=== PATIENT | female | born 1985 | race Caucasian/White ===

== ENCOUNTER → 2017-07-12 | Outpatient (CLI) | payer OTHER ==
[2017-07-12 14:02] LABS: BASO # 0.1 10^3/uL (0.0-0.2); BASO % 0.9 % (0.0-1.0); EOS # 0.4 10^3/uL (0.0-0.50); EOS % 2.6 % (0.0-3.0); IMMATURE GRANULOCYTE % 0.5 % (0-0); LYMPH # 2.6 10^3/uL (1.5-4.5); LYMPH % 19.2 % (24.0-44.0); MEAN CORPUSCULAR HEMOGLOBIN 31.3 pg (27.0-33.0); MEAN CORPUSCULAR HGB CONC 33.9 g/dl (32.0-36.5); MEAN CORPUSCULAR VOLUME 92.3 fl (80.0-96.0); MONO # 0.9 10^3/uL (0.0-0.8); MONO % 6.3 % (0.0-5.0); NEUTROPHILS # 9.7 10^3/uL (1.8-7.7); NEUTROPHILS % 70.5 % (36.0-66.0); PLATELET COUNT, AUTOMATED 404 10^3/uL (150-450); WHITE BLOOD COUNT 13.8 10^3/uL (4.0-10.0)
[2017-07-12 14:14] LABS: ALBUMIN 3.6 GM/DL (3.2-5.2); ALBUMIN/GLOBULIN RATIO 1.13 (1.00-1.93); ALKALINE PHOSPHATASE 85 U/L (45-117); ALT/SGPT 16 U/L (12-78); ANION GAP 7 MEQ/L (8-16); AST/SGOT 7 U/L (7-37); BILIRUBIN,TOTAL 0.2 MG/DL (0.2-1.0); BLOOD UREA NITROGEN 9 MG/DL (7-18); CARBON DIOXIDE LEVEL 24 MEQ/L (21-32); CHLORIDE LEVEL 107 MEQ/L (98-107); GLOMERULAR FILTRATION RATE > 60.0 (>60); GLUCOSE, FASTING 97 MG/DL (70-105); POTASSIUM SERUM 4.2 MEQ/L (3.5-5.1); SODIUM LEVEL 138 MEQ/L (136-145); TOTAL PROTEIN 6.8 GM/DL (6.4-8.2)
[2017-07-12 14:26] LABS: FOLATE 12.1 NG/ML; VITAMIN B12 LEVEL 726 PG/ML
[2017-07-14 07:06] LABS: ERYTHROCYTE SEDIMENTATION RATE 4 mm/hr (0-20)
== END ==
LOC: M LABNEURO 10:02
PROVIDERS: ATTEND Psychiatry & Neurology Neurology
DX: G35 Multiple sclerosis (principal)

== ENCOUNTER → 2019-03-06 | Outpatient (REF) | payer OTHER ==
[~2019-03-06] MED LIST: AMPY10TA PO; BACL1TAB8 GT; DOCU100C16 PO; DULO1CAP4 PO; DULO1CAP5 PO; FOLI1TAB11 PO; HYDR-3363 PO; LYRI150C PO; MECL1CHW PO; PROV100T25 PO; SYNT25TA PO; TIZA4CAP6 PO; TRAZ-252 PO; VITA30004 PO; YAZ1TAB PO; ZYRTTAB8 PO; [UNRECOGNIZED DRUG - CODE] SC
[2019-03-06 18:54] LABS: APPEARANCE, URINE HAZY (CLEAR); BACTERIA, URINE AUTO 1+ (NEGATIVE); BILIRUBIN, URINE AUTO NEGATIVE (NEGATIVE); BLOOD, URINE BLOOD NEGATIVE (NEGATIVE); COLOR, URINE YELLOW (YELLOW); GLUCOSE, URINE (UA) AUTO NEGATIVE (NEGATIVE); KETONE, URINE AUTO NEGATIVE (NEGATIVE); LEUKOCYTE ESTERASE, URINE AUTO TRACE (NEGATIVE); NITRITE, URINE AUTO NEGATIVE (NEGATIVE); PROTEIN, URINE AUTO NEGATIVE (NEGATIVE); RBC, URINE AUTO 2 /HPF (0-3); SPECIFIC GRAVITY URINE AUTO 1.005 (1.002-1.035); SQUAMOUS EPITHELIAL CELL UR AU 6 /HPF (0-6); UROBILINOGEN, URINE AUTO 0.2 mg/dL (0.0-2.0); WBC, URINE AUTO 4 /HPF (0-3)
== END ==
LOC: M SMT 17:16
PROVIDERS: ATTEND Nurse Practitioner Family
DX: N39.0 Urinary tract infection, site not specified (principal)
CPT/HCPCS: 51798; 81001; 87086; G0463

== ENCOUNTER → 2019-03-14 | Outpatient (CLI) | payer OTHER ==
--- NOTE | 2019-03-14 15:08 | REP ---
Renal ultrasound for chronic urinary tract infections: The right kidney measures 11.2 x 5.1 x 4.0 cm. The left kidney measures 12.1 x 6.5 x 5.6 cm. The kidneys are normal size. Renal cortical echogenicity is normal bilaterally. There is no hydronephrosis or calculus. There are no solid or cystic renal masses. Bladder: The bladder is incompletely distended and cannot be further evaluated. Impression: Negative renal ultrasound. The bladder is incompletely distended and cannot be evaluated Electronically Signed by Sammy Goldberg MD 03/14/2019 02:35 P
== END ==
LOC: M RAD 14:07
PROVIDERS: ATTEND Nurse Practitioner Family
DX: N39.0 Urinary tract infection, site not specified (principal)
CPT/HCPCS: 52281; 76775; 76857; G0463

== ENCOUNTER → 2019-07-03 | Outpatient (CLI) | payer OTHER ==
--- NOTE | 2019-07-11 02:46 | ECWPNPC ---
PATIENT NAME: DEBO GALLEGOS : 1985 GENDER: FEMALE VISIT DATE: 07/03/2019 DISCHARGE DATE: 07/03/19 0000 VISIT LOCKED DATE TIME: PHYSICIAN: BERNARD XIONG MD RESOURCE: BERNARD XIONG MD REASON FOR APPOINTMENT 1. BACK PAIN HISTORY OF PRESENT ILLNESS PAIN SCREENING: PATIENT HAS A COMPLAINT OF ACUTE OR CHRONIC PAIN :YES 33 YEAR OLD FEMALE PATIENT WITH A HISTORY OF CHRONIC LOW BACK PAIN. THE PATIENT DESCRIBES THE PAIN ACHING, SORE, SHOOTING, INTERMITTENT, AND CONTINUOUS WITH A PAIN SCORE OF 5-10/10 DEPENDING ON PHYSICAL ACTIVITY. THE PATIENT STATES HER PAIN IS MAINLY LOCATED OVER HER TAILBONE WITH IT WORSE ON THE LEFT SIDE AND LEFT HIP AREAS. THE PATIENT SAYS SHE HAS BEEN SUFFERING FROM HER LOW BACK PAIN OVER THE LAST 5 YEARS, WHICH HAS WORSENED OVER TIME. THE PATIENT SAYS SHE HAS RECEIVED LEFT HIP INJECTIONS IN THE PAST THAT HELPED PROVIDE GOOD PAIN RELIEF FOR HER. THE PATIENT MENTIONS SHE HAS A HISTORY OF MS SINCE 2017 THAT HAS SLOWLY PROGRESSED OVER THE YEARS. PATIENT DENIES UNEXPLAINABLE WEIGHT LOSS, FEVER, CHILLS, NEW CHANGES ON HER URINARY OR BOWEL CONTROL. FALL RISK SCREENING: SCREENING :NO FALLS REPORTED IN THE LAST YEAR CURRENT MEDICATIONS TAKING FLUCONAZOLE 150 MG TABLET DIRECTED ORALLY TAKING PHENAZOPYRIDINE HCL 100 MG TABLET 2 TABLETS AFTER MEALS ORALLY THREE TIMES A DAY TAKING ZYRTEC , NOTES: 100MG TAKING DULOXETINE HCL 60 MG CAPSULE DELAYED RELEASE PARTICLES 1 CAPSULE ORALLY ONCE A DAY, NOTES: 70MG TAKING PROVIGIL 100 MG TABLET 1 TABLET IN THE MORNING ORALLY ONCE A DAY TAKING LYRICA 150 MG CAPSULE 1 CAPSULE ORALLY ONCE A DAY, NOTES: 2XS A DAY TAKING SYNTHROID 25 MCG TABLET 1 TABLET ON AN EMPTY STOMACH IN THE MORNING ORALLY ONCE A DAY TAKING FOLIC ACID 1 MG TABLET 1 TABLET ORALLY ONCE A DAY TAKING VITAMIN D 1000 UNIT TABLET 1 TABLET ORALLY ONCE A DAY, NOTES: 5000 TAKING TRAZODONE HCL 50 MG TABLET 1 TABLET AT BEDTIME NEEDED ORALLY ONCE A DAY TAKING COPAXONE 20 MG/ML SOLUTION PREFILLED SYRINGE 1 ML SUBCUTANEOUS ONCE A DAY TAKING DALFAMPRIDINE ER 10 MG TABLET EXTENDED RELEASE 12 HOUR 1 TABLET ORALLY TWICE A DAY TAKING MECLIZINE HCL 25 MG TABLET CHEWABLE 1 TABLET NEEDED ORALLY ONCE A DAY TAKING BACLOFEN 10 MG/20ML SOLUTION DIRECTED INTRATHECAL TAKING TIZANIDINE HCL 4 MG TABLET 1 TABLET NEEDED ORALLY THREE TIMES A DAY TAKING HYDROXYZINE HCL 25 MG/ML SOLUTION 2 ML NEEDED INTRAMUSCULAR EVERY 6 HRS TAKING DOCUSATE SODIUM 100 MG CAPSULE 1 CAPSULE NEEDED ORALLY ONCE A DAY TAKING METHENAMINE HIPPURATE 1 GM TABLET 1 TABLET ORALLY TWICE A DAY NOT-TAKING NITROFURANTOIN MONOHYD MACRO 100 MG CAPSULE 1 CAPSULE WITH FOOD ORALLY EVERY 12 HRS NOT-TAKING BACTRIM DS 800-160 MG TABLET 1 TABLET 1 HOUR PRIOR TO YOUR CYSTOSCOPY ORALLY ONCE NOT-TAKING DIFLUCAN 100 MG TABLET 1 TABLET 1 HOUR PRIOR TO YOUR CYSTOSCOPY ORALLY ONCE MEDICATION LIST REVIEWED AND RECONCILED WITH THE PATIENT PAST MEDICAL HISTORY UTI MS HYPOTHYROIDISM BELLS PALSY ALLERGIES MORPHINE SULFATE (PF): HIVES SURGICAL HISTORY TONSILLECTOMY IUD CYSTOSCOPY 03/14/2019 FAMILY HISTORY FATHER: ALIVE MOTHER: ALIVE 1 BROTHER(S) , 2 SISTER(S) . 1 SON(S) , 1 DAUGHTER(S) - HEALTHY. 1 SISTER HAS CHRONS DISEASE. SOCIAL HISTORY GENERAL: TOBACCO USE ARE YOU A:CURRENT SMOKER ARE YOU INTERESTED IN QUITTING?NOT READY TO QUIT COUNSELED THE PATIENT ON SMOKING EFFECTS, EDUCATION [id number]/24/2019 HOW MANY CIGARETTES A DAY DO YOU SMOKE?6-10 HOW SOON AFTER YOU WAKE UP DO YOU SMOKE YOUR FIRST CIGARETTE?6-30 MIN HOW OFTEN DO YOU SMOKE CIGARETTES?EVERY DAY PATIENT COUNSELED ON THE DANGERS OF TOBACCO USE AND URGED TO QUIT:07/03/2019 OTHERS AT HOME: SPOUSE. HOUSING: OWNS HOME. EDUCATION LEVEL OF EDUCATION:HIGH SCHOOL DIET: REGULAR. LANGUAGE LANGUAGES SPOKEN:VENEZUELAN DOMESTIC VIOLENCE STATUS: NEW PATIENT PAIN DIARY PATIENT DESCRIBES PAIN :ACHING, STABBING, SORE FROM 0-10, WHAT LEVEL IS YOUR PAIN TODAY?7 PRECIPITATING FACTORS GENERALIZED ACTIVITY ALLEVIATING FACTORS HEAT SEEMS TO HELP A LITTLE BIT ACCUPUNCTURE PT PAIN INJECTIONS IN LEFT HIPX2 STATES PAIN RETURNS IMPACT ON FUNCTION STATES SHE DOES WORK BUT IT IS VERY PANFUL, STATES WORKING WOULD BE EASIER IF SHE WAS NOT IN PAIN IS THERE A CHANCE YOU COULD BE ?NO HAVE YOU BEEN SICK IN THE LAST WEEK (COLD, COUGH, FEVER, FLU, ETC)NO DO YOU TAKE ANY BLOOD THINNERS?NO DO YOU HAVE ANY RASHES OR OPEN SORES?NO ANY CHANGE IN BOWEL OR BLADDER CONTROL?NO ARE YOU ALLERGIC TO SHELLFISH OR IV DYE?NO ARE YOU DIABETIC?NO DO YOU HAVE A PACEMAKER OR DEFIBRILLATOR?NO HAVE YOU FALLEN IN THE LAST 6 MONTHS?NO DO YOU USE ANY TYPE OF TOBACCO (SMOKE, SMOKELESS, CHEW, ETC.)YES ARE YOU ABUSED, NEGLECTED, OR IN AN UNSAFE ENVIRONMENT?NO DO YOU HAVE THOUGHTS OF HURTING YOURSELF OR SOMEONE ELSE?NO DO YOU NEED ANY PRESCRIPTIONS? UNKNOWN DO YOU HAVE ANY OTHER QUESTIONS OR CONCERNS? OPTIONS FOR PAIN CONTROL INTENSITY SCALE REVIEWEDNUMBER RECREATIONAL DRUG USE DRUG USE?NO EXERCISE: NO REGULAR EXERCISE. LEARNING BARRIERS / SPECIAL NEEDS VISION IMPAIRED?YES CONTACTS PAIN CLINIC PFS, CLERGY, PUBLIC HEALTH REFERRALS PFS REFERRAL NEEDED?NO CLERGY REFERRAL NEEDED?NO PUBLIC HEALTH REFERRAL NEEDED?NO WAS THE PROVIDER NOTIFIED OF ANY PERTINENT INFO?YES HAS THE PATIENT BEEN EDUCATED REGARDING HIS/HER PLAN OF CARE?YES HAS THE PATIENT BEEN EDUCATED REGARDING PAIN, THE RISK FOR PAIN, THE IMPORTANCE OF EFFECTIVE PAIN MANAGEMENT, AND THE PAIN ASSESSMENT PROCESS?YES LATEX QUESTIONNAIRE LATEX ALLERGY : HAVE YOU EVER DEVELOPED ANY TYPE OF REACTION AFTER HANDLING LATEX PRODUCTS SUCH RUBBER GLOVES, CONDOMS, DIAPHRAGMS, BALLOONS, SOCKS, OR UNDERWEAR?NO LATEX ALLERGY : HAVE YOU EVER DEVELOPED ANY TYPE OF REACTION DURING OR AFTER DENTAL APPOINTMENT, VAGINAL/RECTAL EXAMINATION, SURGICAL PROCEDURE, OR ANY OTHER EXPOSURE?NO LATEX RISK : HAVE YOU EVER HAD ANY DIFFICULTY BREATHING OR HIVES AFTER EATING OR HANDLING ANY FRUITS, OR VEGETABLES; SUCH KIWI, BANANAS, STONE FRUITS, OR CHESTNUTSNO LATEX RISK : DO YOU HAVE A PREVIOUS PERSONAL HISTORY OF MORE THAN NINE SURGERIES, SPINA BIFIDA, OR REPEATED CATHERIZATIONS? NO LATEX RISK : ARE YOU FREQUENTLY EXPOSED TO LATEX PRODUCTS IN YOUR OCCUPATION?NO DATE ASKED : 07/03/2019 CAFFEINE CAFFEINE USE?YES SODA,TEA, SOMETIMES COFFEE ADVANCE DIRECTIVE ADVANCE DIRECTIVE DISCUSSED WITH PATIENT:NO PT STATES SHE HAS NO ADVANCED DIRECTIVES, DECLINES INFORMATION AT THIS TIME 07/03/19 4688 [facility] YAZDANISM YAZDANISM NO BAHAI BELIEFS THAT WOULD IMPACT HEALTH CARE. MARITAL STATUS: . ALCOHOL SCREENING DID YOU HAVE A DRINK CONTAINING ALCOHOL IN THE PAST YEAR?YES HOW OFTEN DID YOU HAVE A DRINK CONTAINING ALCOHOL IN THE PAST YEAR?MONTHLY OR LESS (1 POINT) HOW MANY DRINKS DID YOU HAVE ON A TYPICAL DAY WHEN YOU WERE DRINKING IN THE PAST YEAR?1 OR 2 (0 POINTS) HOW OFTEN DID YOU HAVE SIX OR MORE DRINKS ON ONE OCCASION IN THE PAST YEAR?NEVER (0 POINTS) POINTS1 INTERPRETATIONNEGATIVE OCCUPATION: RETAIL. SEXUAL HX HAD SEX IN THE LAST 12 MONTHS (VAGINAL, ORAL, OR ANAL)?YES WITHMEN ONLY PREVENTION STRATEGIES DISCUSSED:OTHER USE PROTECTION?NO HAVE YOU EVER HAD AN STD?NO HOSPITALIZATION/MAJOR DIAGNOSTIC PROCEDURE DENIES PAST HOSPITALIZATION REVIEW OF SYSTEMS REVIEWED BY: PROVIDER: BERNARD XIONG MD . CONSTITUTIONAL: ANY CHANGE IN YOUR MEDICAL CONDITION? NO . CHILLS NO . FEVER NO . INFECTION: DO YOU HAVE NEW INFECTIONS? NO . DO YOU HAVE HISTORY OF MRSA? NO . MUSCULOSKELETAL: ANY NEW PATTERNS OF PAIN OR NUMBNESS? NO . SYTEMIC LUPUS NO . GASTROENTEROLOGY: ANY NEW CHANGE IN BOWEL CONTROL? NO . BARRETTS ESOPHAGUS NO . CIRRHOSIS NO . HEPATITIS NO . LIVER FAILURE NO . ACID REFLUX NO . UNEXPLAINED WEIGHT LOSS NO . GENITOURINARY: ANY NEW CHANGE IN BLADDER CONTROL? NO . IS THERE A CHANCE YOU COULD BE ? NO . HEMATOLOGY/LYMPH: DO YOU TAKE ANY BLOOD THINNERS? (FOR EXAMPLE- COUMADIN, PLAVIX, AGGRENOX, PLATEL, PRADAXA, OR XARELTO) NO . WHEN WAS YOUR LAST DOSE? DATE: TIME: . LOW PLATELET COUNT NO . SICKLE CELL DISEASE NO . VON WILLIEBRANDS NO . FACTOR V LEIDEN NO . THALLASEMIA NO . ANEMIA YES . EASY BRUISING NO . NEUROLOGY: HAVE YOU FALLEN IN THE PAST 12 MONTHS? NO . ANY NEW EXTREMITY NUMBNESS OR WEAKNESS? YES- STATES ARMS AND LEGS RELATED TO MS . HEAD INJURY NO . DEMENTIA NO . CEREBRAL PALSY NO . MULTIPLE SCLEROSIS YES . DIZZINESS NO . HEADACHE NO . STROKES NO . VERTIGO NO . CARDIOLOGY: DO YOU HAVE A PACEMAKER OR DEFIBRILLATOR? NO . ANGINA NO . HEART ATTACK NO . HEART SURGERY NO . CONGESTIVE HEART FAILURE/FLUID OVERLOAD NO . CHEST PAIN NO . HIGH BLOOD PRESSURE NO . IRREGULAR HEART BEAT NO . RESPIRATORY: HAVE YOU BEEN SICK IN THE PAST WEEK? NO . FEVER NO . FLU LIKE SYMPTOMS? NO . CPAP NO . BYPAP NO . ASTHMA NO . EMPHYSEMA NO . CHRONIC LUNG DISEASES NO . SHORTNESS OF BREATH ON EXERTION NO . COUGH NO . SNORING NO . INTEGUMENTARY: DO YOU HAVE ANY RASHES OR OPEN SORES? NO . ALLERGIC/IMMUNO: ARE YOU ALLERGIC TO IV DYE? NO . ANY NEW ALLERGIES? NO . PSYCHIATRIC: DO YOU HAVE THOUGHTS OF HURTING YOURSELF OR SOMEONE ELSE? NO . ARE YOU ABUSED, NEGLECTED, OR IN AN UNSAFE ENVIRONMENT? NO . ENDOCRINOLOGY: ARE YOU DIABETIC? NO . THYROID DISORDER NO . OTHER: DO YOU NEED ANY PRESCRIPTIONS? NO . IF YES, PLEASE LIST: ____ . ANY NEW PROBLEMS WITH YOUR MEDICATIONS? NO . WHEN DID YOU LAST EAT? ____ . WHEN DID YOU LAST DRINK? ____ . WHAT DID YOU LAST DRINK? ____ . NAME OF PERSON DRIVING YOU HOME? ____ . DO YOU HAVE ANY OTHER QUESTIONS OR CONCERNS NO . VITAL SIGNS WT 205.4 LBS, HT 70 IN, BMI 29.47 INDEX, BP 137/94 MM HG, HR 93 /MIN, RR 18 /MIN, TEMP 97.4 F, OXYGEN SAT % 99%, SAFE IN ENV? (Y/N) YES, NA INITIALS SC 15:40, REVIEWED BY: JAYLYN. EXAMINATION GENERAL EXAMINATION: PATIENT IS ALERT O X 3 AND COOPERATIVE. LUNGS CLEAR, TO AUSCULTATION. HEART: NO MURMURS OR GALLOPS; FACIAL CRANIAL NERVES ARE GROSSLY NORMAL. GOOD SYMMETRY OF FACIAL MUSCLE MOVEMENT. NORMAL VISUAL CHAPPELL. ANTALGIC WALK. TENDERNESS IN THE LOW BACK OVER THE LEFT SACROILIAC JOINT AND LEFT GREATER TROCHANTER OF THE FEMUR. LEFT LEG IS WEAKER AT EXTENSION AND FLEXION. STRAIGHT LEG RAISE OF EITHER LEG IS NEGATIVE FOR RADICULOPATHY. MRI OF THE LUMBAR SPINE DONE ON 07/26/2018 SHOWS BULGING DISC AT L4-L5 AND FACET ARTHROPATHY CHANGES. 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 GALLEGOS'S PAIN MANAGEMENT CASE. DUE TO THE SACROILIAC JOINT DYSFUNCTION, I WOULD LIKE TO MOVE FORWARD WITH A LEFT SACROILIAC JOINT BLOCK AT THIS TIME. WE DISCUSSED THE BENEFITS, RISKS, AND ALTERNATIVES OF THE INJECTION AND THE PATIENT WOULD LIKE TO PROCEED. THE PATIENT WILL FOLLOW UP IN SEVERAL WEEKS AFTER THE PROCEDURE TO SEE HOW IT IS HELPING WITH HER PAIN. DEPENDING ON THE INJECTION'S RESULTS, I MAY TRY AN INJECTION OVER THE LEFT GREATER TROCHANTER OF THE FEMUR. THE PATIENT WILL FOLLOW UP IN SEVERAL WEEKS WITH THE NURSE PRACTITIONER AFTER HER PROCEDURE TO SEE HOW IT IS HELPING WITH HER PAIN. INSTRUCTIONS WERE GIVEN, QUESTIONS WERE ANSWERED, PATIENT REPORTS UNDERSTANDING AND AGREES WITH THE PLAN. I, PALMIRA GILBERT, DOCUMENTED THE ABOVE INFORMATION ACTING A SCRIBE FOR DR. XIONG. I HAVE REVIEWED THE ABOVE DOCUMENT, WRITTEN BY PALMIRA SPANNIBRay AND I VERIFY THAT IT IS ACCURATE. DEAR ЕЛЕНА LUNA MD: THANK YOU FOR YOUR KIND REFERRAL OF DEBO GALLEGOS. IF YOU WANT TO DISCUSS HER CASE WITH ME PLEASE CALL ME AT THE PAIN CENTER AT [phone]. SINCERELY, BERNARD XIONG MD PAIN MEDICINE . PROCEDURE CODES FA211 ESTABILISHED PATIENT [facility] CHARGE [id number] CURRENT MEDS W/DOSAGES DOCUMENTED G8730 PAIN ASSESS POS TOOL F/U PLAN DOC DISPOSITION & COMMUNICATION FOLLOW UP REASON: LT SIJ BLOCK, F/UP WITH GEOMETRICIAN ELECTRONICALLY SIGNED BY BERNARD XIONG MD, MD ON 07/10/2019 AT 04:02 PM EST DISCLAIMER : THIS IS A VISIT SUMMARY EXTRACTED FROM THE [employer] CHART. IT IS NOT A COPY OF THE [employer] PROGRESS NOTE. YANCI
== END ==
LOC: M PAIN 15:00
PROVIDERS: ATTEND Anesthesiology
DX: M54.5 Low back pain (principal); G89.29 Other chronic pain; M46.1 Sacroiliitis, not elsewhere classified; M53.3 Sacrococcygeal disorders, not elsewhere classified; M70.62 Trochanteric bursitis, left hip; G35 Multiple sclerosis; E03.9 Hypothyroidism, unspecified; F17.210 Nicotine dependence, cigarettes, uncomplicated; Z88.5 Allergy status to narcotic agent; Z79.899 Other long term (current) drug therapy

== ENCOUNTER → 2019-07-30 | Outpatient (CLI) | payer OTHER ==
[~2019-07-30] MED LIST changes: +BUPIVACAINE HCL 0.25% 30 ML VIAL As Ordered ONE; +ISOVUE-M 300 61% 15ML VIAL (Q9967) As Ordered ONE; +LIDOCAINE 1% SDV INJ 30 ML VIAL As Ordered ONE; +NORCO, ANEXSIA 5/325MG TABLET (HYDROcodone/ACETAMINOPHEN) As Ordered ONE; +TRIAMCINOLONE ACETONIDE SUSP 40 MG/ML VIAL (J3301) As Ordered ONE; +diazePAM 5 MG TAB As Ordered ONE; +diphenhydrAMINE 25 MG CAP As Ordered ONE
--- NOTE | 2019-07-30 16:40 | REP ---
Three spot fluoroscopic images: 07/30/2019. Indication: Procedural image guidance. Findings: Spot fluoroscopic images of the sacroiliac joint were provided for procedural assistance. Please see procedure report for details. Impression: Imaging provided for procedural assistance. 20 seconds of fluoroscopy time. Electronically Signed by Nacho Parra DO 07/30/2019 04:33 P
--- NOTE | 2019-08-01 01:37 | ECWPNPC ---
PATIENT NAME: DEBO GALLEGOS : 1985 GENDER: FEMALE VISIT DATE: 07/30/2019 DISCHARGE DATE: 07/30/19 1707 VISIT LOCKED DATE TIME: PHYSICIAN: BERNARD XIONG MD RESOURCE: BERNARD XIONG MD REASON FOR APPOINTMENT 1. LEFT SIJ HISTORY OF PRESENT ILLNESS HISTORY OF PRESENT ILLNESS: PAIN THE PATIENT DESCRIBES THE PAIN... FALL RISK SCREENING: SCREENING :NO FALLS REPORTED IN THE LAST YEAR CURRENT MEDICATIONS TAKING ZYRTEC 10 MG TABLET 1 CAP ORALLY DAILY, NOTES: 100MG 07/30 700 TAKING DULOXETINE HCL 60 MG CAPSULE DELAYED RELEASE PARTICLES 1 CAPSULE ORALLY ONCE A DAY, NOTES: 70MG 07/30 700 TAKING PROVIGIL 100 MG TABLET 1 TABLET IN THE MORNING ORALLY ONCE A DAY, NOTES: 07/30 700 TAKING LYRICA 150 MG CAPSULE 1 CAPSULE ORALLY ONCE A DAY, NOTES: 2XS A DAY 07/30 700 TAKING SYNTHROID 25 MCG TABLET 1 TABLET ON AN EMPTY STOMACH IN THE MORNING ORALLY ONCE A DAY, NOTES: 07/30 700 TAKING FOLIC ACID 1 MG TABLET 1 TABLET ORALLY ONCE A DAY, NOTES: 07/30 700 TAKING VITAMIN D 1000 UNIT TABLET 1 TABLET ORALLY ONCE A DAY, NOTES: 5000 07/30 700 TAKING TRAZODONE HCL 50 MG TABLET 1 TABLET AT BEDTIME NEEDED ORALLY ONCE A DAY, NOTES: 07/29 2100 TAKING COPAXONE 20 MG/ML SOLUTION PREFILLED SYRINGE 1 ML SUBCUTANEOUS ONCE A DAY, NOTES: 07/28 TAKING DALFAMPRIDINE ER 10 MG TABLET EXTENDED RELEASE 12 HOUR 1 TABLET ORALLY TWICE A DAY, NOTES: 07/28 TAKING MECLIZINE HCL 25 MG TABLET CHEWABLE 1 TABLET NEEDED ORALLY ONCE A DAY, NOTES: 2 WEEKS AGO TAKING BACLOFEN 10 MG/20ML SOLUTION DIRECTED INTRATHECAL , NOTES: NONE RECENT TAKING TIZANIDINE HCL 4 MG TABLET 1 TABLET NEEDED ORALLY THREE TIMES A DAY, NOTES: 2 WEEKS AGO TAKING HYDROXYZINE HCL 25 MG TABLET 1 TAB ORALLY EVERY 6 HRS NEEDED, NOTES: NONE RECENT TAKING DOCUSATE SODIUM 100 MG CAPSULE 1 CAPSULE NEEDED ORALLY ONCE A DAY, NOTES: NONE RECENT TAKING METHENAMINE HIPPURATE 1 GM TABLET 1 TABLET ORALLY TWICE A DAY, NOTES: 07/30 700 NOT-TAKING NITROFURANTOIN MONOHYD MACRO 100 MG CAPSULE 1 CAPSULE WITH FOOD ORALLY EVERY 12 HRS NOT-TAKING BACTRIM DS 800-160 MG TABLET 1 TABLET 1 HOUR PRIOR TO YOUR CYSTOSCOPY ORALLY ONCE NOT-TAKING DIFLUCAN 100 MG TABLET 1 TABLET 1 HOUR PRIOR TO YOUR CYSTOSCOPY ORALLY ONCE NOT-TAKING FLUCONAZOLE 150 MG TABLET DIRECTED ORALLY NOT-TAKING PHENAZOPYRIDINE HCL 100 MG TABLET 2 TABLETS AFTER MEALS ORALLY THREE TIMES A DAY MEDICATION LIST REVIEWED AND RECONCILED WITH THE PATIENT PAST MEDICAL HISTORY UTI MS HYPOTHYROIDISM BELLS PALSY CHRONIC BACK PAIN ALLERGIES MORPHINE SULFATE (PF): HIVES SURGICAL HISTORY TONSILLECTOMY IUD CYSTOSCOPY 03/14/2019 FAMILY HISTORY FATHER: ALIVE MOTHER: ALIVE 1 BROTHER(S) , 2 SISTER(S) . 1 SON(S) , 1 DAUGHTER(S) - HEALTHY. 1 SISTER HAS CHRONS DISEASE. SOCIAL HISTORY GENERAL: TOBACCO USE ARE YOU A:CURRENT SMOKER ARE YOU INTERESTED IN QUITTING?NOT READY TO QUIT COUNSELED THE PATIENT ON SMOKING EFFECTS, EDUCATION [id number]/17/2019 HOW MANY CIGARETTES A DAY DO YOU SMOKE?6-10 HOW SOON AFTER YOU WAKE UP DO YOU SMOKE YOUR FIRST CIGARETTE?6-30 MIN HOW OFTEN DO YOU SMOKE CIGARETTES?EVERY DAY PATIENT COUNSELED ON THE DANGERS OF TOBACCO USE AND URGED TO QUIT:07/30/2019 OTHERS AT HOME: SPOUSE. HOUSING: OWNS HOME. EDUCATION LEVEL OF EDUCATION:HIGH SCHOOL DIET: REGULAR. LANGUAGE LANGUAGES SPOKEN:SENEGALESE DOMESTIC VIOLENCE STATUS: DO YOU FEEL SAFE IN YOUR ENVIRONMENT?YES RECREATIONAL DRUG USE DRUG USE?NO EXERCISE: NO REGULAR EXERCISE. LEARNING BARRIERS / SPECIAL NEEDS VISION IMPAIRED?YES CONTACTS PAIN CLINIC PFS, CLERGY, PUBLIC HEALTH REFERRALS PFS REFERRAL NEEDED?NO CLERGY REFERRAL NEEDED?NO PUBLIC HEALTH REFERRAL NEEDED?NO HAS THE PATIENT BEEN EDUCATED REGARDING HIS/HER PLAN OF CARE?YES HAS THE PATIENT BEEN EDUCATED REGARDING PAIN, THE RISK FOR PAIN, THE IMPORTANCE OF EFFECTIVE PAIN MANAGEMENT, AND THE PAIN ASSESSMENT PROCESS?YES LATEX QUESTIONNAIRE LATEX ALLERGY : HAVE YOU EVER DEVELOPED ANY TYPE OF REACTION AFTER HANDLING LATEX PRODUCTS SUCH RUBBER GLOVES, CONDOMS, DIAPHRAGMS, BALLOONS, SOCKS, OR UNDERWEAR?NO LATEX ALLERGY : HAVE YOU EVER DEVELOPED ANY TYPE OF REACTION DURING OR AFTER DENTAL APPOINTMENT, VAGINAL/RECTAL EXAMINATION, SURGICAL PROCEDURE, OR ANY OTHER EXPOSURE?NO LATEX RISK : HAVE YOU EVER HAD ANY DIFFICULTY BREATHING OR HIVES AFTER EATING OR HANDLING ANY FRUITS, OR VEGETABLES; SUCH KIWI, BANANAS, STONE FRUITS, OR CHESTNUTSNO LATEX RISK : DO YOU HAVE A PREVIOUS PERSONAL HISTORY OF MORE THAN NINE SURGERIES, SPINA BIFIDA, OR REPEATED CATHERIZATIONS? NO LATEX RISK : ARE YOU FREQUENTLY EXPOSED TO LATEX PRODUCTS IN YOUR OCCUPATION?NO DATE ASKED : 07/30/2019 CAFFEINE CAFFEINE USE?YES SODA,TEA, SOMETIMES COFFEE ADVANCE DIRECTIVE ADVANCE DIRECTIVE DISCUSSED WITH PATIENT:YES 07/30/19 PT DOES NOT HAVE ANY ADVANCED DIRECTIVES AND SHE DECLINES INFORMATION ON HCP AT THIS TIME. AD TAOIST TAOIST NO ORTHODOXY BELIEFS THAT WOULD IMPACT HEALTH CARE. MARITAL STATUS: . ALCOHOL SCREENING DID YOU HAVE A DRINK CONTAINING ALCOHOL IN THE PAST YEAR?YES HOW OFTEN DID YOU HAVE SIX OR MORE DRINKS ON ONE OCCASION IN THE PAST YEAR?NEVER (0 POINTS) HOW MANY DRINKS DID YOU HAVE ON A TYPICAL DAY WHEN YOU WERE DRINKING IN THE PAST YEAR?1 OR 2 (0 POINTS) HOW OFTEN DID YOU HAVE A DRINK CONTAINING ALCOHOL IN THE PAST YEAR?MONTHLY OR LESS (1 POINT) POINTS1 INTERPRETATIONNEGATIVE OCCUPATION: RETAIL. SEXUAL HX HAD SEX IN THE LAST 12 MONTHS (VAGINAL, ORAL, OR ANAL)?YES WITHMEN ONLY PREVENTION STRATEGIES DISCUSSED:OTHER USE PROTECTION?NO HAVE YOU EVER HAD AN STD?NO PRE PROCEDURE PHONE CALL COMPLETE 07/22/19 1010 BV07/30/19 1440 REVIEWED WITH PT. AD. HOSPITALIZATION/MAJOR DIAGNOSTIC PROCEDURE NO HOSPITALIZATION HISTORY. REVIEW OF SYSTEMS REVIEWED BY: PROVIDER: . CONSTITUTIONAL: ANY CHANGE IN YOUR MEDICAL CONDITION? NO . CHILLS NO . FEVER NO . INFECTION: DO YOU HAVE NEW INFECTIONS? NO . DO YOU HAVE HISTORY OF MRSA? NO . MUSCULOSKELETAL: ANY NEW PATTERNS OF PAIN OR NUMBNESS? NO . GASTROENTEROLOGY: ANY NEW CHANGE IN BOWEL CONTROL? NO . GENITOURINARY: ANY NEW CHANGE IN BLADDER CONTROL? NO . IS THERE A CHANCE YOU COULD BE ? NO . HEMATOLOGY/LYMPH: DO YOU TAKE ANY BLOOD THINNERS? (FOR EXAMPLE- COUMADIN, PLAVIX, AGGRENOX, PLATEL, PRADAXA, OR XARELTO) NO . WHEN WAS YOUR LAST DOSE? DATE: TIME: . NEUROLOGY: HAVE YOU FALLEN IN THE PAST 12 MONTHS? NO . ANY NEW EXTREMITY NUMBNESS OR WEAKNESS? NO . CARDIOLOGY: DO YOU HAVE A PACEMAKER OR DEFIBRILLATOR? NO . RESPIRATORY: HAVE YOU BEEN SICK IN THE PAST WEEK? NO . FEVER NO . FLU LIKE SYMPTOMS? NO . COUGH NO . INTEGUMENTARY: DO YOU HAVE ANY RASHES OR OPEN SORES? NO . ALLERGIC/IMMUNO: ARE YOU ALLERGIC TO IV DYE? NO . ANY NEW ALLERGIES? NO . PSYCHIATRIC: DO YOU HAVE THOUGHTS OF HURTING YOURSELF OR SOMEONE ELSE? NO . ARE YOU ABUSED, NEGLECTED, OR IN AN UNSAFE ENVIRONMENT? NO . ENDOCRINOLOGY: ARE YOU DIABETIC? NO . OTHER: DO YOU NEED ANY PRESCRIPTIONS? NO . IF YES, PLEASE LIST: ____ . ANY NEW PROBLEMS WITH YOUR MEDICATIONS? NO . WHEN DID YOU LAST EAT? 07/30 0900 . WHEN DID YOU LAST DRINK? 07/30 1400 . WHAT DID YOU LAST DRINK? WATER . NAME OF PERSON DRIVING YOU HOME? HUSBAN-SOL . DO YOU HAVE ANY OTHER QUESTIONS OR CONCERNS NO PT HAS NOT HAD ANY VACCINES IN THE PAST 30 DAYS. . VITAL SIGNS WT 200.0 LBS, HT 70 IN, BMI 28.69 INDEX, BP 126/85 MM HG, HR 88 /MIN, RR 18 /MIN, TEMP 97.1 F, OXYGEN SAT % 99%, SAFE IN ENV? (Y/N) Y, NA INITIALS AW 1426, REVIEWED BY: AD. ASSESSMENTS SACROILIITIS, NOT ELSEWHERE CLASSIFIED - M46.1 (PRIMARY) TREATMENT SACROILIITIS, NOT ELSEWHERE CLASSIFIED [facility] FLUORO GUIDANCE (PAIN)[id number] PROCEDURES PN SI PRE PROCEDURE DIAGNOSIS SACROILIITIS, SACROILIAC JOINT DYSFUNCTION POST PROCEDURE DIAGNOSIS SACROILIITIS, SACROILIAC JOINT DYSFUNCTION PROCEDURE LEFT SACROILIAC JOINT BLOCK SURGEON DR. BERNARD XIONG VEHICLE ASSEMBLY INSPECTOR NONE ANESTHESIA LOCAL PRE PROCEDURE NOTE PATIENT WITH HISTORY OF CHRONIC LOW BACK PAIN. I EVALUATED THE PATIENT AND REVIEWED THE CHART. I WENT OVER THE RISKS, ALTERNATIVES, AND BENEFITS ASSOCIATED WITH THIS PROCEDURE. THE PATIENT WOULD LIKE TO PROCEED AND GAVE CONSENT TO PERFORM THE PROCEDURE. THE PATIENT DENIES UNEXPLAINABLE WEIGHT LOSS, FEVER, CHILLS, OR NEW CHANGES IN URINARY OR BOWEL CONTROL DESCRIPTION OF PROCEDURE THE PATIENT WAS BROUGHT TO THE PROCEDURE ROOM AND PLACED IN THE PRONE POSITION. THE LUMBOSACRAL AREA WAS CLEANED WITH CHLORAPREP SOLUTION AND DRAPED ASEPTICALLY. THE PROCEDURE WAS DONE UNDER STERILE CONDITIONS. I CHECKED LATERALITY AND THE LEVEL WHERE THE PROCEDURE WAS GOING TO BE PERFORMED WITH THE PATIENT AND THE SUPPORTING STAFF AT THE MOMENT OF THE TIME OUT IN THE PROCEDURE ROOM. UNDER FLUOROSCOPIC GUIDANCE, TARGET POINT WAS SELECTED AT THE LOWER BORDER OF THE LEFT SACROILIAC JOINT. TARGET POINT WAS SELECTED AFTER MEDIAL ROTATION AND TILT OF THE MAGNIFIER OF THE C-ARM. LIDOCAINE WAS USED TO NUMB THE SKIN AND SUBCUTANEOUS TISSUE BELOW IT. A SPINAL NEEDLE, 22-GAUGE, WAS ADVANCED UNDER FLUOROSCOPIC GUIDANCE AND FOLLOWING PATIENT FEEDBACK UNTIL THE TARGET AREA WAS TOUCHED. THE POSITION OF THE NEEDLE WAS VERIFIED WITH AP AND LATERAL VIEWS. AFTER PROPER POSITION OF THE NEEDLE WAS ACHIEVED, ISOVUE M DYE 30%, 0.25 ML, WAS INJECTED SHOWING SPREAD OF THE DYE. THEN, A SOLUTION OF 20 MG OF KENALOG WAS INJECTED IN RIGHT JOINT WITH 3 ML OF BUPIVACAINE 0.125%. THERE WAS NO EVIDENCE OF BLOOD, PARESTHESIA OR CEREBROSPINAL FLUID DURING THE PROCEDURE. THE PATIENT WAS SENT TO THE RECOVERY ROOM. THE PATIENT WAS MOVING THE EXTREMITIES AND DOING WELL. THERE WAS NO COMPLICATION DURING THE PROCEDURE. FLUOROSCOPY TIME WAS 20 SECONDS POST PROCEDURE NOTE I AM LOOKING FOR LONG LASTING PAIN RELIEF WITH THIS INTERVENTION. THE PATIENT WILL BE SEEN IN A FOLLOW UP IN THE NEXT FEW WEEKS. INSTRUCTIONS WERE GIVEN, QUESTIONS WERE ANSWERED, AND THE PATIENT EXPRESSED UNDERSTANDING AND AGREED WITH THE PLAN. I, PALMIRA GILBERT, DOCUMENTED THE ABOVE INFORMATION ACTING A SCRIBE FOR DR. XIONG. I HAVE REVIEWED THE ABOVE DOCUMENT, WRITTEN BY PALMIRA GILBERT SCRIBE AND I VERIFY THAT IT IS ACCURATE. PROCEDURE CODES 25590 INJECT SACROILIAC JOINT, MODIFIERS: LT [id number] RADXPS IN END [id number] DISPOSITION & COMMUNICATION FOLLOW UP 3 WEEKS ELECTRONICALLY SIGNED BY BERNARD XIONG MD, MD ON 07/31/2019 AT 02:34 PM EST DISCLAIMER : THIS IS A VISIT SUMMARY EXTRACTED FROM THE [employer] CHART. IT IS NOT A COPY OF THE [employer] PROGRESS NOTE. MTDD
== END ==
LOC: M PAIN 14:30
PROVIDERS: ATTEND Anesthesiology
DX: M46.1 Sacroiliitis, not elsewhere classified (principal); G35 Multiple sclerosis; E03.9 Hypothyroidism, unspecified; F17.210 Nicotine dependence, cigarettes, uncomplicated; Z88.5 Allergy status to narcotic agent; Z79.899 Other long term (current) drug therapy
CPT/HCPCS: G0260; J3301; Q9967

== ENCOUNTER → 2019-09-09 | Outpatient (CLI) | payer OTHER ==
[~2019-09-09] MED LIST changes: -BUPIVACAINE HCL 0.25% 30 ML VIAL As Ordered ONE; -ISOVUE-M 300 61% 15ML VIAL (Q9967) As Ordered ONE; -LIDOCAINE 1% SDV INJ 30 ML VIAL As Ordered ONE; -NORCO, ANEXSIA 5/325MG TABLET (HYDROcodone/ACETAMINOPHEN) As Ordered ONE; -TRIAMCINOLONE ACETONIDE SUSP 40 MG/ML VIAL (J3301) As Ordered ONE; -diazePAM 5 MG TAB As Ordered ONE; -diphenhydrAMINE 25 MG CAP As Ordered ONE
--- NOTE | 2019-09-11 02:49 | ECWPNPC ---
PATIENT NAME: DEBO GALLEGOS : 1985 GENDER: FEMALE VISIT DATE: 09/09/2019 DISCHARGE DATE: 09/09/19 1025 VISIT LOCKED DATE TIME: PHYSICIAN: DEVIN PURDY RESOURCE: DEVIN PURDY REASON FOR APPOINTMENT 1. POST SIJ HISTORY OF PRESENT ILLNESS HISTORY OF PRESENT ILLNESS: PAIN THE PATIENT DESCRIBES THE PAIN... 33-YEAR-OLD FEMALE IN FOR POST SIJ FOLLOW-UP. PATIENT RATES HER PAIN PREPROCEDURE AT A 5 OUT OF 10 AND POSTPROCEDURE AT A 0-2 OUT OF 10. SHE FURTHER STATES THE PAIN RELIEF CONTINUES TODAY. SHE CONTINUES TO ADMIT TO PAIN IN HER RIGHT SIJ AND WOULD LIKE TO DISCUSS A RIGHT SIJ INJECTION. FALL RISK SCREENING: SCREENING :NO FALLS REPORTED IN THE LAST YEAR CURRENT MEDICATIONS TAKING ZYRTEC 10 MG TABLET 1 CAP ORALLY DAILY TAKING DULOXETINE HCL 60 MG CAPSULE DELAYED RELEASE PARTICLES 1 CAPSULE ORALLY ONCE A DAY, NOTES: 70MG TAKING PROVIGIL 100 MG TABLET 1 TABLET IN THE MORNING ORALLY ONCE A DAY TAKING LYRICA 150 MG CAPSULE 1 CAPSULE ORALLY ONCE A DAY, NOTES: 2XS A DAY TAKING SYNTHROID 25 MCG TABLET 1 TABLET ON AN EMPTY STOMACH IN THE MORNING ORALLY ONCE A DAY TAKING FOLIC ACID 1 MG TABLET 1 TABLET ORALLY ONCE A DAY TAKING VITAMIN D 1000 UNIT TABLET 1 TABLET ORALLY ONCE A DAY, NOTES: 5000 TAKING TRAZODONE HCL 50 MG TABLET 1 TABLET AT BEDTIME NEEDED ORALLY ONCE A DAY TAKING COPAXONE 20 MG/ML SOLUTION PREFILLED SYRINGE 1 ML SUBCUTANEOUS ONCE A DAY TAKING DALFAMPRIDINE ER 10 MG TABLET EXTENDED RELEASE 12 HOUR 1 TABLET ORALLY TWICE A DAY TAKING MECLIZINE HCL 25 MG TABLET CHEWABLE 1 TABLET NEEDED ORALLY ONCE A DAY TAKING BACLOFEN 10 MG/20ML SOLUTION DIRECTED INTRATHECAL TAKING TIZANIDINE HCL 4 MG TABLET 1 TABLET NEEDED ORALLY THREE TIMES A DAY TAKING HYDROXYZINE HCL 25 MG TABLET 1 TAB ORALLY EVERY 6 HRS NEEDED TAKING DOCUSATE SODIUM 100 MG CAPSULE 1 CAPSULE NEEDED ORALLY ONCE A DAY TAKING METHENAMINE HIPPURATE 1 GM TABLET 1 TABLET ORALLY TWICE A DAY NOT-TAKING NITROFURANTOIN MONOHYD MACRO 100 MG CAPSULE 1 CAPSULE WITH FOOD ORALLY EVERY 12 HRS NOT-TAKING BACTRIM DS 800-160 MG TABLET 1 TABLET 1 HOUR PRIOR TO YOUR CYSTOSCOPY ORALLY ONCE NOT-TAKING DIFLUCAN 100 MG TABLET 1 TABLET 1 HOUR PRIOR TO YOUR CYSTOSCOPY ORALLY ONCE NOT-TAKING FLUCONAZOLE 150 MG TABLET DIRECTED ORALLY NOT-TAKING PHENAZOPYRIDINE HCL 100 MG TABLET 2 TABLETS AFTER MEALS ORALLY THREE TIMES A DAY MEDICATION LIST REVIEWED AND RECONCILED WITH THE PATIENT PAST MEDICAL HISTORY UTI MS HYPOTHYROIDISM BELLS PALSY CHRONIC BACK PAIN ALLERGIES MORPHINE SULFATE (PF): HIVES SURGICAL HISTORY TONSILLECTOMY IUD CYSTOSCOPY 03/14/2019 FAMILY HISTORY FATHER: ALIVE MOTHER: ALIVE 1 BROTHER(S) , 2 SISTER(S) . 1 SON(S) , 1 DAUGHTER(S) - HEALTHY. 1 SISTER HAS CHRONS DISEASE. SOCIAL HISTORY GENERAL: TOBACCO USE ARE YOU A:CURRENT SMOKER ARE YOU INTERESTED IN QUITTING?NOT READY TO QUIT COUNSELED THE PATIENT ON SMOKING EFFECTS, EDUCATION [id number]/27/2020 HOW MANY CIGARETTES A DAY DO YOU SMOKE?6-10 HOW SOON AFTER YOU WAKE UP DO YOU SMOKE YOUR FIRST CIGARETTE?6-30 MIN HOW OFTEN DO YOU SMOKE CIGARETTES?EVERY DAY PATIENT COUNSELED ON THE DANGERS OF TOBACCO USE AND URGED TO QUIT:09/09/2019 OTHERS AT HOME: SPOUSE. HOUSING: OWNS HOME. EDUCATION LEVEL OF EDUCATION:HIGH SCHOOL DIET: REGULAR. LANGUAGE LANGUAGES SPOKEN:BELIZEAN DOMESTIC VIOLENCE STATUS: DO YOU FEEL SAFE IN YOUR ENVIRONMENT?YES RECREATIONAL DRUG USE DRUG USE?NO EXERCISE: NO REGULAR EXERCISE. LEARNING BARRIERS / SPECIAL NEEDS VISION IMPAIRED?YES CONTACTS PAIN CLINIC PFS, CLERGY, PUBLIC HEALTH REFERRALS PFS REFERRAL NEEDED?NO CLERGY REFERRAL NEEDED?NO PUBLIC HEALTH REFERRAL NEEDED?NO HAS THE PATIENT BEEN EDUCATED REGARDING HIS/HER PLAN OF CARE?YES HAS THE PATIENT BEEN EDUCATED REGARDING PAIN, THE RISK FOR PAIN, THE IMPORTANCE OF EFFECTIVE PAIN MANAGEMENT, AND THE PAIN ASSESSMENT PROCESS?YES LATEX QUESTIONNAIRE LATEX ALLERGY : HAVE YOU EVER DEVELOPED ANY TYPE OF REACTION AFTER HANDLING LATEX PRODUCTS SUCH RUBBER GLOVES, CONDOMS, DIAPHRAGMS, BALLOONS, SOCKS, OR UNDERWEAR?NO LATEX ALLERGY : HAVE YOU EVER DEVELOPED ANY TYPE OF REACTION DURING OR AFTER DENTAL APPOINTMENT, VAGINAL/RECTAL EXAMINATION, SURGICAL PROCEDURE, OR ANY OTHER EXPOSURE?NO LATEX RISK : HAVE YOU EVER HAD ANY DIFFICULTY BREATHING OR HIVES AFTER EATING OR HANDLING ANY FRUITS, OR VEGETABLES; SUCH KIWI, BANANAS, STONE FRUITS, OR CHESTNUTSNO LATEX RISK : DO YOU HAVE A PREVIOUS PERSONAL HISTORY OF MORE THAN NINE SURGERIES, SPINA BIFIDA, OR REPEATED CATHERIZATIONS? NO LATEX RISK : ARE YOU FREQUENTLY EXPOSED TO LATEX PRODUCTS IN YOUR OCCUPATION?NO DATE ASKED : 07/30/2019 CAFFEINE CAFFEINE USE?YES SODA,TEA, SOMETIMES COFFEE ADVANCE DIRECTIVE ADVANCE DIRECTIVE DISCUSSED WITH PATIENT:YES HCP - SOL () EVANGELICAL EVANGELICAL NO JAINISM BELIEFS THAT WOULD IMPACT HEALTH CARE. MARITAL STATUS: . ALCOHOL SCREENING DID YOU HAVE A DRINK CONTAINING ALCOHOL IN THE PAST YEAR?YES HOW OFTEN DID YOU HAVE SIX OR MORE DRINKS ON ONE OCCASION IN THE PAST YEAR?NEVER (0 POINTS) HOW MANY DRINKS DID YOU HAVE ON A TYPICAL DAY WHEN YOU WERE DRINKING IN THE PAST YEAR?1 OR 2 (0 POINTS) HOW OFTEN DID YOU HAVE A DRINK CONTAINING ALCOHOL IN THE PAST YEAR?MONTHLY OR LESS (1 POINT) POINTS1 INTERPRETATIONNEGATIVE OCCUPATION: RETAIL. SEXUAL HX HAD SEX IN THE LAST 12 MONTHS (VAGINAL, ORAL, OR ANAL)?YES WITHMEN ONLY PREVENTION STRATEGIES DISCUSSED:OTHER USE PROTECTION?NO HAVE YOU EVER HAD AN STD?NO PRE PROCEDURE PHONE CALL COMPLETE 07/22/19 1010 BV07/30/19 1440 REVIEWED WITH PT. SAVAGE WITH PATIENT 09/09/2019 0941 JS. HOSPITALIZATION/MAJOR DIAGNOSTIC PROCEDURE BUTCHER'S PALSY CHILD REVIEW OF SYSTEMS REVIEWED BY: PROVIDER: JOHNSON LEE-Derrell . CONSTITUTIONAL: ANY CHANGE IN YOUR MEDICAL CONDITION? NO . CHILLS NO . FEVER NO . INFECTION: DO YOU HAVE NEW INFECTIONS? NO . DO YOU HAVE HISTORY OF MRSA? NO . MUSCULOSKELETAL: ANY NEW PATTERNS OF PAIN OR NUMBNESS? NO . GASTROENTEROLOGY: ANY NEW CHANGE IN BOWEL CONTROL? NO . GENITOURINARY: ANY NEW CHANGE IN BLADDER CONTROL? NO . IS THERE A CHANCE YOU COULD BE ? NO . HEMATOLOGY/LYMPH: DO YOU TAKE ANY BLOOD THINNERS? (FOR EXAMPLE- COUMADIN, PLAVIX, AGGRENOX, PLATEL, PRADAXA, OR XARELTO) NO . WHEN WAS YOUR LAST DOSE? DATE: TIME: . NEUROLOGY: HAVE YOU FALLEN IN THE PAST 12 MONTHS? NO . ANY NEW EXTREMITY NUMBNESS OR WEAKNESS? NO . CARDIOLOGY: DO YOU HAVE A PACEMAKER OR DEFIBRILLATOR? NO . RESPIRATORY: HAVE YOU BEEN SICK IN THE PAST WEEK? NO . FEVER NO . FLU LIKE SYMPTOMS? NO . COUGH NO . INTEGUMENTARY: DO YOU HAVE ANY RASHES OR OPEN SORES? NO . ALLERGIC/IMMUNO: ARE YOU ALLERGIC TO IV DYE? NO . ANY NEW ALLERGIES? NO . PSYCHIATRIC: DO YOU HAVE THOUGHTS OF HURTING YOURSELF OR SOMEONE ELSE? NO . ARE YOU ABUSED, NEGLECTED, OR IN AN UNSAFE ENVIRONMENT? NO . ENDOCRINOLOGY: ARE YOU DIABETIC? NO . OTHER: DO YOU NEED ANY PRESCRIPTIONS? NO . IF YES, PLEASE LIST: ____ . ANY NEW PROBLEMS WITH YOUR MEDICATIONS? NO . WHEN DID YOU LAST EAT? ____ . WHEN DID YOU LAST DRINK? ____ . WHAT DID YOU LAST DRINK? ____ . NAME OF PERSON DRIVING YOU HOME? ____ . DO YOU HAVE ANY OTHER QUESTIONS OR CONCERNS YES, STATES PAIN IN THE RIGHT HIP NOW AND PAIN IN THE FRONT OF HER LEFT HIP . VITAL SIGNS WT 209.8 LBS, HT 70 IN, BMI 30.10 INDEX, BP 127/75 MM HG, HR 92 /MIN, RR 18 /MIN, TEMP 97.6 F, OXYGEN SAT % 96%, SAFE IN ENV? (Y/N) YES, NA INITIALS AW 0937, REVIEWED BY: LUIS. EXAMINATION GENERAL EXAMINATION: GENERALNO ACUTE DISTRESS, WELL NOURISHED AND HYDRATED. PSYCHAPPROPRIATE MOOD AND AFFECT . LUNGS:CLEAR TO AUSCULTATION BILATERALLY, NO WHEEZES, RHONCHI, RALES. HEART:NO MURMURS, REGULAR RATE AND RHYTHM. BACK:POINT TENDER RIGHT SIJ . ASSESSMENTS SACROILIITIS, NOT ELSEWHERE CLASSIFIED - M46.1 (PRIMARY) TREATMENT SACROILIITIS, NOT ELSEWHERE CLASSIFIED NOTES: RIGHT SIJ. CLINICAL NOTES: 33-YEAR-OLD FEMALE IN FOR LEFT SIJ FOLLOW-UP. GIVEN PRESENTING SYMPTOMS AND RESULTS OF PHYSICAL EXAMINATION RECOMMEND RIGHT SIJ WITH POSTPROCEDURAL FOLLOW-UP. PATIENT HAS EXPRESSED UNDERSTANDING OF AND WAS IN AGREEMENT WITH TREATMENT PLAN. GIVEN TIME TO ASK QUESTIONS AND EXPRESS CONCERNS. PROCEDURE CODES FA211 ESTABILISHED PATIENT [facility] CHARGE DISPOSITION & COMMUNICATION FOLLOW UP POSTPROCEDURE (REASON: RIGHT SIJ) ELECTRONICALLY SIGNED BY JESUS BARFIELD ON 09/10/2019 AT 08:39 AM EST DISCLAIMER : THIS IS A VISIT SUMMARY EXTRACTED FROM THE [employer] CHART. IT IS NOT A COPY OF THE [employer] PROGRESS NOTE. YANCI
== END ==
LOC: M PAIN 09:30
PROVIDERS: ATTEND Family Medicine
DX: M46.1 Sacroiliitis, not elsewhere classified (principal); E03.9 Hypothyroidism, unspecified; F17.210 Nicotine dependence, cigarettes, uncomplicated; Z88.5 Allergy status to narcotic agent; Z79.899 Other long term (current) drug therapy

== ENCOUNTER → 2019-10-23 | Outpatient (CLI) | payer OTHER ==
[~2019-10-23] MED LIST changes: +BUPIVACAINE HCL 0.25% 30 ML VIAL As Ordered ONE; +ISOVUE-M 300 61% 15ML VIAL (Q9967) As Ordered ONE; +LIDOCAINE 1% SDV INJ 30 ML VIAL As Ordered ONE; +TRIAMCINOLONE ACETONIDE SUSP 40 MG/ML VIAL (J3301) As Ordered ONE; +diazePAM 5 MG TAB As Ordered ONE; +diphenhydrAMINE 25 MG CAP As Ordered ONE; +oxyCODONE 5MG TAB As Ordered ONE
--- NOTE | 2019-10-23 13:37 | REP ---
SI joint series: Five views bilateral: History: Bilateral SI joint injection for pain. 20 seconds of fluoroscopy time is reported. Findings: A sequence of five last image hold fluoroscopically obtained spot radiographs of the SI joints document needle position and contrast injection associated with injection procedure. Electronically Signed by Davis Sanchez MD 10/23/2019 01:29 P
--- NOTE | 2019-10-26 05:45 | ECWPNPC ---
PATIENT NAME: DEBO GALLEGOS : 1985 GENDER: FEMALE VISIT DATE: 10/23/2019 DISCHARGE DATE: 10/23/19 1113 VISIT LOCKED DATE TIME: PHYSICIAN: BERNARD XIONG MD RESOURCE: BERNARD XIONG MD REASON FOR APPOINTMENT 1. RIGHT SIJ HISTORY OF PRESENT ILLNESS HISTORY OF PRESENT ILLNESS: PAIN THE PATIENT DESCRIBES THE PAIN... FALL RISK SCREENING: SCREENING :NO FALLS REPORTED IN THE LAST YEAR CURRENT MEDICATIONS TAKING NITROFURANTOIN MONOHYD MACRO 100 MG CAPSULE 1 CAPSULE WITH FOOD ORALLY EVERY 12 HRS TAKING PHENAZOPYRIDINE HCL 100 MG TABLET 2 TABLETS AFTER MEALS ORALLY THREE TIMES A DAY TAKING ZYRTEC 10 MG TABLET 1 CAP ORALLY DAILY TAKING DULOXETINE HCL 60 MG CAPSULE DELAYED RELEASE PARTICLES 1 CAPSULE ORALLY ONCE A DAY, NOTES: 70MG TAKING PROVIGIL 100 MG TABLET 1 TABLET IN THE MORNING ORALLY ONCE A DAY TAKING LYRICA 150 MG CAPSULE 1 CAPSULE ORALLY ONCE A DAY, NOTES: 2XS A DAY TAKING SYNTHROID 25 MCG TABLET 1 TABLET ON AN EMPTY STOMACH IN THE MORNING ORALLY ONCE A DAY TAKING FOLIC ACID 1 MG TABLET 1 TABLET ORALLY ONCE A DAY TAKING VITAMIN D 1000 UNIT TABLET 1 TABLET ORALLY ONCE A DAY, NOTES: 5000 TAKING TRAZODONE HCL 50 MG TABLET 1 TABLET AT BEDTIME NEEDED ORALLY ONCE A DAY TAKING COPAXONE 20 MG/ML SOLUTION PREFILLED SYRINGE 1 ML SUBCUTANEOUS ONCE A DAY TAKING DALFAMPRIDINE ER 10 MG TABLET EXTENDED RELEASE 12 HOUR 1 TABLET ORALLY TWICE A DAY TAKING MECLIZINE HCL 25 MG TABLET CHEWABLE 1 TABLET NEEDED ORALLY ONCE A DAY, NOTES: NEEDED TAKING TIZANIDINE HCL 4 MG TABLET 1 TABLET NEEDED ORALLY THREE TIMES A DAY TAKING HYDROXYZINE HCL 25 MG TABLET 1 TAB ORALLY EVERY 6 HRS NEEDED TAKING DOCUSATE SODIUM 100 MG CAPSULE 1 CAPSULE NEEDED ORALLY ONCE A DAY TAKING METHENAMINE HIPPURATE 1 GM TABLET 1 TABLET ORALLY TWICE A DAY NOT-TAKING BACTRIM DS 800-160 MG TABLET 1 TABLET 1 HOUR PRIOR TO YOUR CYSTOSCOPY ORALLY ONCE NOT-TAKING DIFLUCAN 100 MG TABLET 1 TABLET 1 HOUR PRIOR TO YOUR CYSTOSCOPY ORALLY ONCE NOT-TAKING FLUCONAZOLE 150 MG TABLET DIRECTED ORALLY NOT-TAKING BACLOFEN 10 MG/20ML SOLUTION DIRECTED INTRATHECAL MEDICATION LIST REVIEWED AND RECONCILED WITH THE PATIENT PAST MEDICAL HISTORY UTI MS HYPOTHYROIDISM BELLS PALSY CHRONIC BACK PAIN ALLERGIES MORPHINE SULFATE (PF): HIVES SURGICAL HISTORY TONSILLECTOMY IUD CYSTOSCOPY 03/14/2019 FAMILY HISTORY FATHER: ALIVE MOTHER: ALIVE 1 BROTHER(S) , 2 SISTER(S) . 1 SON(S) , 1 DAUGHTER(S) - HEALTHY. 1 SISTER HAS CHRONS DISEASE. SOCIAL HISTORY GENERAL: TOBACCO USE ARE YOU A:CURRENT SMOKER ARE YOU INTERESTED IN QUITTING?NOT READY TO QUIT COUNSELED THE PATIENT ON SMOKING EFFECTS, EDUCATION [id number]/27/2020 HOW MANY CIGARETTES A DAY DO YOU SMOKE?6-10 HOW SOON AFTER YOU WAKE UP DO YOU SMOKE YOUR FIRST CIGARETTE?6-30 MIN HOW OFTEN DO YOU SMOKE CIGARETTES?EVERY DAY PATIENT COUNSELED ON THE DANGERS OF TOBACCO USE AND URGED TO QUIT:09/09/2019 SMOKING CESSATION INFORMATION GIVEN10/23/2019 OTHERS AT HOME: SPOUSE. HOUSING: OWNS HOME. EDUCATION LEVEL OF EDUCATION:HIGH SCHOOL DIET: REGULAR. LANGUAGE LANGUAGES SPOKEN:FRISIAN DOMESTIC VIOLENCE STATUS: DO YOU FEEL SAFE IN YOUR ENVIRONMENT?YES RECREATIONAL DRUG USE DRUG USE?NO EXERCISE: NO REGULAR EXERCISE. LEARNING BARRIERS / SPECIAL NEEDS VISION IMPAIRED?YES CONTACTS PAIN CLINIC PFS, CLERGY, PUBLIC HEALTH REFERRALS PFS REFERRAL NEEDED?NO CLERGY REFERRAL NEEDED?NO PUBLIC HEALTH REFERRAL NEEDED?NO HAS THE PATIENT BEEN EDUCATED REGARDING HIS/HER PLAN OF CARE?YES HAS THE PATIENT BEEN EDUCATED REGARDING PAIN, THE RISK FOR PAIN, THE IMPORTANCE OF EFFECTIVE PAIN MANAGEMENT, AND THE PAIN ASSESSMENT PROCESS?YES LATEX QUESTIONNAIRE LATEX ALLERGY : HAVE YOU EVER DEVELOPED ANY TYPE OF REACTION AFTER HANDLING LATEX PRODUCTS SUCH RUBBER GLOVES, CONDOMS, DIAPHRAGMS, BALLOONS, SOCKS, OR UNDERWEAR?NO LATEX ALLERGY : HAVE YOU EVER DEVELOPED ANY TYPE OF REACTION DURING OR AFTER DENTAL APPOINTMENT, VAGINAL/RECTAL EXAMINATION, SURGICAL PROCEDURE, OR ANY OTHER EXPOSURE?NO LATEX RISK : HAVE YOU EVER HAD ANY DIFFICULTY BREATHING OR HIVES AFTER EATING OR HANDLING ANY FRUITS, OR VEGETABLES; SUCH KIWI, BANANAS, STONE FRUITS, OR CHESTNUTSNO LATEX RISK : DO YOU HAVE A PREVIOUS PERSONAL HISTORY OF MORE THAN NINE SURGERIES, SPINA BIFIDA, OR REPEATED CATHERIZATIONS? NO LATEX RISK : ARE YOU FREQUENTLY EXPOSED TO LATEX PRODUCTS IN YOUR OCCUPATION?NO DATE ASKED : 07/30/2019 CAFFEINE CAFFEINE USE?YES SODA,TEA, SOMETIMES COFFEE ADVANCE DIRECTIVE ADVANCE DIRECTIVE DISCUSSED WITH PATIENT:YES HCP - SOL () JAINISM JAINISM NO MANDAEISM BELIEFS THAT WOULD IMPACT HEALTH CARE. MARITAL STATUS: . ALCOHOL SCREENING DID YOU HAVE A DRINK CONTAINING ALCOHOL IN THE PAST YEAR?YES HOW OFTEN DID YOU HAVE SIX OR MORE DRINKS ON ONE OCCASION IN THE PAST YEAR?NEVER (0 POINTS) HOW MANY DRINKS DID YOU HAVE ON A TYPICAL DAY WHEN YOU WERE DRINKING IN THE PAST YEAR?1 OR 2 (0 POINTS) HOW OFTEN DID YOU HAVE A DRINK CONTAINING ALCOHOL IN THE PAST YEAR?MONTHLY OR LESS (1 POINT) POINTS1 INTERPRETATIONNEGATIVE OCCUPATION: RETAIL. SEXUAL HX HAD SEX IN THE LAST 12 MONTHS (VAGINAL, ORAL, OR ANAL)?YES WITHMEN ONLY PREVENTION STRATEGIES DISCUSSED:OTHER USE PROTECTION?NO HAVE YOU EVER HAD AN STD?NO PRE PROCEDURE PHONE CALL COMPLETE 07/22/19 1010 BV07/30/19 1440 REVIEWED WITH PT. SAVAGE WITH PATIENT 09/09/2019 0941 JS. HOSPITALIZATION/MAJOR DIAGNOSTIC PROCEDURE BUTCHER'S PALSY CHILD REVIEW OF SYSTEMS REVIEWED BY: PROVIDER: . CONSTITUTIONAL: ANY CHANGE IN YOUR MEDICAL CONDITION? NO . CHILLS NO . FEVER NO . INFECTION: DO YOU HAVE NEW INFECTIONS? NO . DO YOU HAVE HISTORY OF MRSA? NO . MUSCULOSKELETAL: ANY NEW PATTERNS OF PAIN OR NUMBNESS? NO . GASTROENTEROLOGY: ANY NEW CHANGE IN BOWEL CONTROL? NO . GENITOURINARY: ANY NEW CHANGE IN BLADDER CONTROL? NO . IS THERE A CHANCE YOU COULD BE ? NO . HEMATOLOGY/LYMPH: DO YOU TAKE ANY BLOOD THINNERS? (FOR EXAMPLE- COUMADIN, PLAVIX, AGGRENOX, PLATEL, PRADAXA, OR XARELTO) NO . WHEN WAS YOUR LAST DOSE? DATE: TIME: . NEUROLOGY: HAVE YOU FALLEN IN THE PAST 12 MONTHS? NO . ANY NEW EXTREMITY NUMBNESS OR WEAKNESS? NO . CARDIOLOGY: DO YOU HAVE A PACEMAKER OR DEFIBRILLATOR? NO . RESPIRATORY: HAVE YOU BEEN SICK IN THE PAST WEEK? NO . FEVER NO . FLU LIKE SYMPTOMS? NO . COUGH NO . INTEGUMENTARY: DO YOU HAVE ANY RASHES OR OPEN SORES? NO . ALLERGIC/IMMUNO: ARE YOU ALLERGIC TO IV DYE? NO . ANY NEW ALLERGIES? NO . PSYCHIATRIC: DO YOU HAVE THOUGHTS OF HURTING YOURSELF OR SOMEONE ELSE? NO . ARE YOU ABUSED, NEGLECTED, OR IN AN UNSAFE ENVIRONMENT? NO . ENDOCRINOLOGY: ARE YOU DIABETIC? NO . OTHER: DO YOU NEED ANY PRESCRIPTIONS? NO . IF YES, PLEASE LIST: ____ . ANY NEW PROBLEMS WITH YOUR MEDICATIONS? NO . WHEN DID YOU LAST EAT? ____10-21-20 . WHEN DID YOU LAST DRINK? ____10-22-20 . WHAT DID YOU LAST DRINK? ____WATER . NAME OF PERSON DRIVING YOU HOME? ____SHAWN . DO YOU HAVE ANY OTHER QUESTIONS OR CONCERNS NO . VITAL SIGNS WT 209.6 LBS, HT 70 IN, BMI 30.07 INDEX, BP 138/94 MM HG, HR 103 /MIN, RR 18 /MIN, TEMP 97.0 F, OXYGEN SAT % 99%, NA INITIALS AW 0938, REVIEWED BY: KG. ASSESSMENTS SACROILIITIS, NOT ELSEWHERE CLASSIFIED - M46.1 (PRIMARY) TREATMENT SACROILIITIS, NOT ELSEWHERE CLASSIFIED [facility] FLUORO GUIDANCE (PAIN)[id number] PROCEDURES PN SI PRE PROCEDURE DIAGNOSIS SACROILIITIS, SACROILIAC JOINT DYSFUNCTION POST PROCEDURE DIAGNOSIS SACROILIITIS, SACROILIAC JOINT DYSFUNCTION PROCEDURE BILATERAL SACROILIAC JOINT BLOCK SURGEON DR. BERNARD XIONG CONTRACT SPECIALIST NONE ANESTHESIA LOCAL PRE PROCEDURE NOTE PATIENT WITH HISTORY OF CHRONIC LOW BACK PAIN. I EVALUATED THE PATIENT AND REVIEWED THE CHART. I WENT OVER THE RISKS, ALTERNATIVES, AND BENEFITS ASSOCIATED WITH THIS PROCEDURE. THE PATIENT WOULD LIKE TO PROCEED AND GAVE CONSENT TO PERFORM THE PROCEDURE. THE PATIENT DENIES UNEXPLAINABLE WEIGHT LOSS, FEVER, CHILLS, OR NEW CHANGES IN URINARY OR BOWEL CONTROL DESCRIPTION OF PROCEDURE THE PATIENT WAS BROUGHT TO THE PROCEDURE ROOM AND PLACED IN THE PRONE POSITION. THE LUMBOSACRAL AREA WAS CLEANED WITH CHLORAPREP SOLUTION AND DRAPED ASEPTICALLY. THE PROCEDURE WAS DONE UNDER STERILE CONDITIONS. I CHECKED LATERALITY AND THE LEVEL WHERE THE PROCEDURE WAS GOING TO BE PERFORMED WITH THE PATIENT AND THE SUPPORTING STAFF AT THE MOMENT OF THE TIME OUT IN THE PROCEDURE ROOM. UNDER FLUOROSCOPIC GUIDANCE, TARGET POINT WAS SELECTED AT THE LOWER BORDER OF THE RIGHT AND LEFT SACROILIAC JOINT. TARGET POINT WAS SELECTED AFTER MEDIAL ROTATION AND TILT OF THE MAGNIFIER OF THE C-ARM. LIDOCAINE WAS USED TO NUMB THE SKIN AND SUBCUTANEOUS TISSUE BELOW IT. A SPINAL NEEDLE, 22-GAUGE, WAS ADVANCED UNDER FLUOROSCOPIC GUIDANCE AND FOLLOWING PATIENT FEEDBACK UNTIL THE TARGET AREA WAS TOUCHED. THE POSITION OF THE NEEDLE WAS VERIFIED WITH AP AND LATERAL VIEWS. AFTER PROPER POSITION OF THE NEEDLE WAS ACHIEVED, ISOVUE M DYE 30%, 0.25 ML, WAS INJECTED SHOWING SPREAD OF THE DYE. THEN, A SOLUTION OF 30 MG OF KENALOG WAS INJECTED IN RIGHT AND LEFT JOINT WITH 3 ML OF BUPIVACAINE 0.125%. THERE WAS NO EVIDENCE OF BLOOD, PARESTHESIA OR CEREBROSPINAL FLUID DURING THE PROCEDURE. THE PATIENT WAS SENT TO THE RECOVERY ROOM. THE PATIENT WAS MOVING THE EXTREMITIES AND DOING WELL. THERE WAS NO COMPLICATION DURING THE PROCEDURE. FLUOROSCOPY TIME WAS 20 SECONDS POST PROCEDURE NOTE THE PATIENT WILL BE SEEN IN A FOLLOW UP IN THE NEXT FEW WEEKS. I AM LOOKING FOR LONG LASTING PAIN RELIEF FOR THE PATIENT WITH THIS INJECTION. INSTRUCTIONS WERE GIVEN, QUESTIONS WERE ANSWERED, AND THE PATIENT EXPRESSED UNDERSTANDING AND AGREED WITH THE PLAN. I, PALMIRA GILBERT, DOCUMENTED THE ABOVE INFORMATION ACTING A SCRIBE FOR DR. XIONG. I HAVE REVIEWED THE ABOVE DOCUMENT, WRITTEN BY PALMIRA ESCOBAR AND I VERIFY THAT IT IS ACCURATE. PROCEDURE CODES 18859 INJECT SACROILIAC JOINT, MODIFIERS: [id number] RADXPS IN END [id number] DISPOSITION & COMMUNICATION FOLLOW UP 3 WEEKS ELECTRONICALLY SIGNED BY BERNARD XIONG MD, MD ON 10/25/2019 AT 09:33 AM EDT DISCLAIMER : THIS IS A VISIT SUMMARY EXTRACTED FROM THE [employer] CHART. IT IS NOT A COPY OF THE [employer] PROGRESS NOTE. MTDD
== END ==
LOC: M PAIN 09:30
PROVIDERS: ATTEND Anesthesiology
DX: M46.1 Sacroiliitis, not elsewhere classified (principal); G35 Multiple sclerosis; E03.9 Hypothyroidism, unspecified; F17.210 Nicotine dependence, cigarettes, uncomplicated; Z88.5 Allergy status to narcotic agent; Z79.899 Other long term (current) drug therapy
CPT/HCPCS: G0260; J3301; Q9967

== ENCOUNTER → 2019-11-12 | Outpatient (CLI) | payer OTHER ==
[~2019-11-12] MED LIST changes: -BUPIVACAINE HCL 0.25% 30 ML VIAL As Ordered ONE; -ISOVUE-M 300 61% 15ML VIAL (Q9967) As Ordered ONE; -LIDOCAINE 1% SDV INJ 30 ML VIAL As Ordered ONE; -TRIAMCINOLONE ACETONIDE SUSP 40 MG/ML VIAL (J3301) As Ordered ONE; -diazePAM 5 MG TAB As Ordered ONE; -diphenhydrAMINE 25 MG CAP As Ordered ONE; -oxyCODONE 5MG TAB As Ordered ONE
--- NOTE | 2019-11-14 01:04 | ECWPNPC ---
PATIENT NAME: DEBO GALLEGOS : 1985 GENDER: FEMALE VISIT DATE: 11/12/2019 DISCHARGE DATE: 11/12/19 1137 VISIT LOCKED DATE TIME: PHYSICIAN: DEVIN PURDY RESOURCE: DEVIN PURDY REASON FOR APPOINTMENT 1. POST SIJ HISTORY OF PRESENT ILLNESS HISTORY OF PRESENT ILLNESS: PAIN THE PATIENT DESCRIBES THE PAINAFTER THE PROCEDURE SEVERITY - PAIN SCORE OF1/10 PROCEDURE HELPED EXCEPT THE SITE OF THE INJECTION IS STILL SORE AND TENDER. LOCATIONS SACROILIAC AREA PERMISSION WAS REQUESTED AND RECEIVED FROM PATIENT WAS TO PERFORM TELEPHONE VISIT. 33-YEAR-OLD FEMALE IN FOR POST BILATERAL SIJ FOLLOW-UP. SHE FEELS THE PROCEDURE WAS SUCCESSFUL OVERALL RATING HER PAIN PREPROCEDURE AT A 10 OUT OF 10 AND POST PROCEDURE AT A 0-1 OUT OF 10. SHE FURTHER STATES THE PROCEDURE CONTINUES TO HELP HER TODAY RATING HER PAIN AT A 1 OUT OF 10. FALL RISK SCREENING: SCREENING :NO FALLS REPORTED IN THE LAST YEAR CURRENT MEDICATIONS TAKING NITROFURANTOIN MONOHYD MACRO 100 MG CAPSULE 1 CAPSULE WITH FOOD ORALLY EVERY 12 HRS TAKING PHENAZOPYRIDINE HCL 100 MG TABLET 2 TABLETS AFTER MEALS ORALLY THREE TIMES A DAY TAKING ZYRTEC 10 MG TABLET 1 CAP ORALLY DAILY TAKING DULOXETINE HCL 60 MG CAPSULE DELAYED RELEASE PARTICLES 1 CAPSULE ORALLY ONCE A DAY, NOTES: 70MG TAKING PROVIGIL 100 MG TABLET 1 TABLET IN THE MORNING ORALLY ONCE A DAY TAKING LYRICA 150 MG CAPSULE 1 CAPSULE ORALLY ONCE A DAY, NOTES: 2XS A DAY TAKING SYNTHROID 25 MCG TABLET 1 TABLET ON AN EMPTY STOMACH IN THE MORNING ORALLY ONCE A DAY TAKING FOLIC ACID 1 MG TABLET 1 TABLET ORALLY ONCE A DAY TAKING VITAMIN D 1000 UNIT TABLET 1 TABLET ORALLY ONCE A DAY, NOTES: 5000 TAKING TRAZODONE HCL 50 MG TABLET 1 TABLET AT BEDTIME NEEDED ORALLY ONCE A DAY TAKING COPAXONE 20 MG/ML SOLUTION PREFILLED SYRINGE 1 ML SUBCUTANEOUS ONCE A DAY TAKING DALFAMPRIDINE ER 10 MG TABLET EXTENDED RELEASE 12 HOUR 1 TABLET ORALLY TWICE A DAY TAKING MECLIZINE HCL 25 MG TABLET CHEWABLE 1 TABLET NEEDED ORALLY ONCE A DAY, NOTES: NEEDED TAKING TIZANIDINE HCL 4 MG TABLET 1 TABLET NEEDED ORALLY THREE TIMES A DAY TAKING HYDROXYZINE HCL 25 MG TABLET 1 TAB ORALLY EVERY 6 HRS NEEDED TAKING DOCUSATE SODIUM 100 MG CAPSULE 1 CAPSULE NEEDED ORALLY ONCE A DAY TAKING METHENAMINE HIPPURATE 1 GM TABLET 1 TABLET ORALLY TWICE A DAY NOT-TAKING BACTRIM DS 800-160 MG TABLET 1 TABLET 1 HOUR PRIOR TO YOUR CYSTOSCOPY ORALLY ONCE NOT-TAKING DIFLUCAN 100 MG TABLET 1 TABLET 1 HOUR PRIOR TO YOUR CYSTOSCOPY ORALLY ONCE NOT-TAKING FLUCONAZOLE 150 MG TABLET DIRECTED ORALLY NOT-TAKING BACLOFEN 10 MG/20ML SOLUTION DIRECTED INTRATHECAL MEDICATION LIST REVIEWED AND RECONCILED WITH THE PATIENT PAST MEDICAL HISTORY UTI MS HYPOTHYROIDISM BELLS PALSY CHRONIC BACK PAIN ALLERGIES MORPHINE SULFATE (PF): HIVES SURGICAL HISTORY TONSILLECTOMY IUD CYSTOSCOPY 03/14/2019 FAMILY HISTORY FATHER: ALIVE MOTHER: ALIVE 1 BROTHER(S) , 2 SISTER(S) . 1 SON(S) , 1 DAUGHTER(S) - HEALTHY. 1 SISTER HAS CHRONS DISEASE. SOCIAL HISTORY GENERAL: TOBACCO USE ARE YOU A:CURRENT SMOKER HOW OFTEN DO YOU SMOKE CIGARETTES?EVERY DAY HOW SOON AFTER YOU WAKE UP DO YOU SMOKE YOUR FIRST CIGARETTE?6-30 MIN HOW MANY CIGARETTES A DAY DO YOU SMOKE?6-10 ARE YOU INTERESTED IN QUITTING?NOT READY TO QUIT PATIENT COUNSELED ON THE DANGERS OF TOBACCO USE AND URGED TO QUIT:09/09/2019 COUNSELED THE PATIENT ON SMOKING EFFECTS, EDUCATION [id number]/27/2020 SMOKING CESSATION INFORMATION GIVEN10/23/2019 OTHERS AT HOME: SPOUSE. HOUSING: OWNS HOME. EDUCATION LEVEL OF EDUCATION:HIGH SCHOOL DIET: REGULAR. LANGUAGE LANGUAGES SPOKEN:SERBIAN DOMESTIC VIOLENCE STATUS: DO YOU FEEL SAFE IN YOUR ENVIRONMENT?YES RECREATIONAL DRUG USE DRUG USE?NO EXERCISE: NO REGULAR EXERCISE. LEARNING BARRIERS / SPECIAL NEEDS VISION IMPAIRED?YES CONTACTS PAIN CLINIC PFS, CLERGY, PUBLIC HEALTH REFERRALS PFS REFERRAL NEEDED?NO CLERGY REFERRAL NEEDED?NO PUBLIC HEALTH REFERRAL NEEDED?NO HAS THE PATIENT BEEN EDUCATED REGARDING HIS/HER PLAN OF CARE?YES HAS THE PATIENT BEEN EDUCATED REGARDING PAIN, THE RISK FOR PAIN, THE IMPORTANCE OF EFFECTIVE PAIN MANAGEMENT, AND THE PAIN ASSESSMENT PROCESS?YES LATEX QUESTIONNAIRE LATEX ALLERGY : HAVE YOU EVER DEVELOPED ANY TYPE OF REACTION AFTER HANDLING LATEX PRODUCTS SUCH RUBBER GLOVES, CONDOMS, DIAPHRAGMS, BALLOONS, SOCKS, OR UNDERWEAR?NO LATEX ALLERGY : HAVE YOU EVER DEVELOPED ANY TYPE OF REACTION DURING OR AFTER DENTAL APPOINTMENT, VAGINAL/RECTAL EXAMINATION, SURGICAL PROCEDURE, OR ANY OTHER EXPOSURE?NO DATE ASKED : 07/30/2019 LATEX RISK : HAVE YOU EVER HAD ANY DIFFICULTY BREATHING OR HIVES AFTER EATING OR HANDLING ANY FRUITS, OR VEGETABLES; SUCH KIWI, BANANAS, STONE FRUITS, OR CHESTNUTSNO LATEX RISK : DO YOU HAVE A PREVIOUS PERSONAL HISTORY OF MORE THAN NINE SURGERIES, SPINA BIFIDA, OR REPEATED CATHERIZATIONS? NO LATEX RISK : ARE YOU FREQUENTLY EXPOSED TO LATEX PRODUCTS IN YOUR OCCUPATION?NO CAFFEINE CAFFEINE USE?YES SODA,TEA, SOMETIMES COFFEE ADVANCE DIRECTIVE ADVANCE DIRECTIVE DISCUSSED WITH PATIENT:YES HCP - SOL () CATHOLIC CATHOLIC NO LUTHERAN BELIEFS THAT WOULD IMPACT HEALTH CARE. MARITAL STATUS: . ALCOHOL SCREENING DID YOU HAVE A DRINK CONTAINING ALCOHOL IN THE PAST YEAR?YES HOW OFTEN DID YOU HAVE SIX OR MORE DRINKS ON ONE OCCASION IN THE PAST YEAR?NEVER (0 POINTS) HOW MANY DRINKS DID YOU HAVE ON A TYPICAL DAY WHEN YOU WERE DRINKING IN THE PAST YEAR?1 OR 2 (0 POINTS) HOW OFTEN DID YOU HAVE A DRINK CONTAINING ALCOHOL IN THE PAST YEAR?MONTHLY OR LESS (1 POINT) POINTS1 INTERPRETATIONNEGATIVE OCCUPATION: RETAIL. SEXUAL HX HAD SEX IN THE LAST 12 MONTHS (VAGINAL, ORAL, OR ANAL)?YES WITHMEN ONLY PREVENTION STRATEGIES DISCUSSED:OTHER USE PROTECTION?NO HAVE YOU EVER HAD AN STD?NO PRE PROCEDURE PHONE CALL COMPLETE 07/22/19 1010 BV. HOSPITALIZATION/MAJOR DIAGNOSTIC PROCEDURE BUTCHER'S PALSY CHILD REVIEW OF SYSTEMS REVIEWED BY: PROVIDER: JOHNSON STUBBS . CONSTITUTIONAL: ANY CHANGE IN YOUR MEDICAL CONDITION? NO . CHILLS NO . FEVER NO . INFECTION: DO YOU HAVE NEW INFECTIONS? NO . DO YOU HAVE HISTORY OF MRSA? NO . MUSCULOSKELETAL: ANY NEW PATTERNS OF PAIN OR NUMBNESS? NO . GASTROENTEROLOGY: ANY NEW CHANGE IN BOWEL CONTROL? NO . GENITOURINARY: ANY NEW CHANGE IN BLADDER CONTROL? NO . IS THERE A CHANCE YOU COULD BE ? NO . HEMATOLOGY/LYMPH: DO YOU TAKE ANY BLOOD THINNERS? (FOR EXAMPLE- COUMADIN, PLAVIX, AGGRENOX, PLATEL, PRADAXA, OR XARELTO) NO . WHEN WAS YOUR LAST DOSE? DATE: TIME: . NEUROLOGY: HAVE YOU FALLEN IN THE PAST 12 MONTHS? NO . ANY NEW EXTREMITY NUMBNESS OR WEAKNESS? NO . CARDIOLOGY: DO YOU HAVE A PACEMAKER OR DEFIBRILLATOR? NO . RESPIRATORY: HAVE YOU BEEN SICK IN THE PAST WEEK? NO . FEVER NO . FLU LIKE SYMPTOMS? NO . COUGH NO . INTEGUMENTARY: DO YOU HAVE ANY RASHES OR OPEN SORES? NO . ALLERGIC/IMMUNO: ARE YOU ALLERGIC TO IV DYE? NO . ANY NEW ALLERGIES? NO . PSYCHIATRIC: DO YOU HAVE THOUGHTS OF HURTING YOURSELF OR SOMEONE ELSE? NO . ARE YOU ABUSED, NEGLECTED, OR IN AN UNSAFE ENVIRONMENT? NO . ENDOCRINOLOGY: ARE YOU DIABETIC? NO . OTHER: DO YOU NEED ANY PRESCRIPTIONS? NO . IF YES, PLEASE LIST: ____ . ANY NEW PROBLEMS WITH YOUR MEDICATIONS? NO . WHEN DID YOU LAST EAT? ____ . WHEN DID YOU LAST DRINK? ____ . WHAT DID YOU LAST DRINK? ____ . NAME OF PERSON DRIVING YOU HOME? ____ . DO YOU HAVE ANY OTHER QUESTIONS OR CONCERNS NO . ASSESSMENTS SACROILIITIS, NOT ELSEWHERE CLASSIFIED - M46.1 (PRIMARY) TREATMENT SACROILIITIS, NOT ELSEWHERE CLASSIFIED CLINICAL NOTES: 33-YEAR-OLD FEMALE IN FOR POST BILATERAL SIJ FOLLOW-UP. GIVEN PRESENTING SYMPTOMS RECOMMEND FOLLOW-UP IN 4 WEEKS. PATIENT EXPRESSED UNDERSTANDING OF AND WAS IN AGREEMENT WITH TREATMENT PLAN. GIVEN TIME TO ASK QUESTIONS AND EXPRESS CONCERNS.THIS VISIT TO BE BILLED BASED ON TIME SPENT WITH PATIENT. TIME SPENT WITH PATIENT 14 MINUTES. DISPOSITION & COMMUNICATION FOLLOW UP 4 WEEKS (REASON: SACROILIITIS) ELECTRONICALLY SIGNED BY JESUS BARFIELD ON 11/13/2019 AT 09:30 AM EDT DISCLAIMER : THIS IS A VISIT SUMMARY EXTRACTED FROM THE [employer] CHART. IT IS NOT A COPY OF THE [employer] PROGRESS NOTE. YANCI
== END ==
LOC: M PAIN 11:15
PROVIDERS: ATTEND Family Medicine
DX: M46.1 Sacroiliitis, not elsewhere classified (principal); F17.210 Nicotine dependence, cigarettes, uncomplicated; E03.9 Hypothyroidism, unspecified; G35 Multiple sclerosis; Z79.899 Other long term (current) drug therapy; Z88.5 Allergy status to narcotic agent

== ENCOUNTER → 2019-11-21 | Outpatient (CLI) | payer OTHER ==
[2019-11-21 17:25] LABS: FREE T4 0.78 NG/DL (0.76-1.46); THYROID STIMULATING HORMONE 0.404 uIU/ML (0.358-3.740)
[2019-11-21 17:26] LABS: PROLACTIN 8.2 NG/ML; TOTAL T3 135.3 NG/DL (60.0-181.0)
[2019-11-22 10:55] LABS: THYROID PEROXIDASE ANTIBODY 32.5 U/ML (<60.0)
== END ==
LOC: M PLALAB 14:18
PROVIDERS: ATTEND Nurse Practitioner Family
DX: E03.9 Hypothyroidism, unspecified (principal)

== ENCOUNTER → 2019-11-26 | Outpatient (REF) | payer OTHER | LOC: M LAB REF 13:20 | PROVIDERS: ATTEND Internal Medicine Endocrinology, Diabetes & Metabolism | DX: E04.2 Nontoxic multinodular goiter (principal) ==

== ENCOUNTER → 2019-12-10 | Outpatient (CLI) | payer OTHER ==
--- NOTE | 2019-12-12 02:07 | ECWPNPC ---
PATIENT NAME: DEBO GALLEGOS : 1985 GENDER: FEMALE VISIT DATE: 12/10/2019 DISCHARGE DATE: 12/10/19 1312 VISIT LOCKED DATE TIME: PHYSICIAN: DEVIN PURDY RESOURCE: DEVIN PURDY REASON FOR APPOINTMENT 1. SACROILIITIS HISTORY OF PRESENT ILLNESS HISTORY OF PRESENT ILLNESS: PAIN THE PATIENT DESCRIBES THE PAIN... PERMISSION REQUESTED AND RECEIVED FROM PATIENT TO PERFORM TELEHEALTH VISIT. 33-YEAR-OLD FEMALE IN FOR CHRONIC PAIN FOLLOW-UP. SHE RATES HER PAIN CURRENTLY AT A 0 OUT OF 10. FALL RISK SCREENING: SCREENING :NO FALLS REPORTED IN THE LAST YEAR CURRENT MEDICATIONS UNKNOWN NITROFURANTOIN MONOHYD MACRO 100 MG CAPSULE 1 CAPSULE WITH FOOD ORALLY EVERY 12 HRS UNKNOWN PHENAZOPYRIDINE HCL 100 MG TABLET 2 TABLETS AFTER MEALS ORALLY THREE TIMES A DAY UNKNOWN ZYRTEC 10 MG TABLET 1 CAP ORALLY DAILY UNKNOWN DULOXETINE HCL 60 MG CAPSULE DELAYED RELEASE PARTICLES 1 CAPSULE ORALLY ONCE A DAY, NOTES: 70MG UNKNOWN PROVIGIL 100 MG TABLET 1 TABLET IN THE MORNING ORALLY ONCE A DAY UNKNOWN LYRICA 150 MG CAPSULE 1 CAPSULE ORALLY ONCE A DAY, NOTES: 2XS A DAY UNKNOWN FOLIC ACID 1 MG TABLET 1 TABLET ORALLY ONCE A DAY UNKNOWN VITAMIN D 1000 UNIT TABLET 1 TABLET ORALLY ONCE A DAY, NOTES: 5000 UNKNOWN TRAZODONE HCL 50 MG TABLET 1 TABLET AT BEDTIME NEEDED ORALLY ONCE A DAY UNKNOWN COPAXONE 20 MG/ML SOLUTION PREFILLED SYRINGE 1 ML SUBCUTANEOUS ONCE A DAY UNKNOWN DALFAMPRIDINE ER 10 MG TABLET EXTENDED RELEASE 12 HOUR 1 TABLET ORALLY TWICE A DAY UNKNOWN MECLIZINE HCL 25 MG TABLET CHEWABLE 1 TABLET NEEDED ORALLY ONCE A DAY, NOTES: NEEDED UNKNOWN TIZANIDINE HCL 4 MG TABLET 1 TABLET NEEDED ORALLY THREE TIMES A DAY UNKNOWN HYDROXYZINE HCL 25 MG TABLET 1 TAB ORALLY EVERY 6 HRS NEEDED UNKNOWN DOCUSATE SODIUM 100 MG CAPSULE 1 CAPSULE NEEDED ORALLY ONCE A DAY UNKNOWN METHENAMINE HIPPURATE 1 GM TABLET 1 TABLET ORALLY TWICE A DAY UNKNOWN SYNTHROID 25 MCG TABLET 1 TABLET ON AN EMPTY STOMACH IN THE MORNING ORALLY ONCE A DAY UNKNOWN BACTRIM DS 800-160 MG TABLET 1 TABLET 1 HOUR PRIOR TO YOUR CYSTOSCOPY ORALLY ONCE UNKNOWN DIFLUCAN 100 MG TABLET 1 TABLET 1 HOUR PRIOR TO YOUR CYSTOSCOPY ORALLY ONCE UNKNOWN FLUCONAZOLE 150 MG TABLET DIRECTED ORALLY UNKNOWN BACLOFEN 10 MG/20ML SOLUTION DIRECTED INTRATHECAL MEDICATION LIST REVIEWED AND RECONCILED WITH THE PATIENT PAST MEDICAL HISTORY UTI MS HYPOTHYROIDISM BELLS PALSY CHRONIC BACK PAIN ALLERGIES MORPHINE SULFATE (PF): HIVES SURGICAL HISTORY TONSILLECTOMY IUD CYSTOSCOPY 03/14/2019 BIOPSY OF THYROID NODULES 11/2019 FAMILY HISTORY FATHER: ALIVE MOTHER: ALIVE 1 BROTHER(S) , 2 SISTER(S) . 1 SON(S) , 1 DAUGHTER(S) - HEALTHY. 1 SISTER HAS CHRONS DISEASE. SOCIAL HISTORY GENERAL: TOBACCO USE ARE YOU A:CURRENT SMOKER ARE YOU INTERESTED IN QUITTING?NOT READY TO QUIT COUNSELED THE PATIENT ON SMOKING EFFECTS, EDUCATION [id number] HOW MANY CIGARETTES A DAY DO YOU SMOKE?6-10 HOW SOON AFTER YOU WAKE UP DO YOU SMOKE YOUR FIRST CIGARETTE?6-30 MIN HOW OFTEN DO YOU SMOKE CIGARETTES?EVERY DAY PATIENT COUNSELED ON THE DANGERS OF TOBACCO USE AND URGED TO QUIT:12/09/2019 SMOKING CESSATION INFORMATION GIVEN10/23/2019 LATEX QUESTIONNAIRE LATEX ALLERGY : HAVE YOU EVER DEVELOPED ANY TYPE OF REACTION AFTER HANDLING LATEX PRODUCTS SUCH RUBBER GLOVES, CONDOMS, DIAPHRAGMS, BALLOONS, SOCKS, OR UNDERWEAR?NO LATEX ALLERGY : HAVE YOU EVER DEVELOPED ANY TYPE OF REACTION DURING OR AFTER DENTAL APPOINTMENT, VAGINAL/RECTAL EXAMINATION, SURGICAL PROCEDURE, OR ANY OTHER EXPOSURE?NO LATEX RISK : HAVE YOU EVER HAD ANY DIFFICULTY BREATHING OR HIVES AFTER EATING OR HANDLING ANY FRUITS, OR VEGETABLES; SUCH KIWI, BANANAS, STONE FRUITS, OR CHESTNUTSNO LATEX RISK : DO YOU HAVE A PREVIOUS PERSONAL HISTORY OF MORE THAN NINE SURGERIES, SPINA BIFIDA, OR REPEATED CATHERIZATIONS? NO LATEX RISK : ARE YOU FREQUENTLY EXPOSED TO LATEX PRODUCTS IN YOUR OCCUPATION?NO DATE ASKED : 12/09/2019 ALCOHOL SCREENING DID YOU HAVE A DRINK CONTAINING ALCOHOL IN THE PAST YEAR?YES HOW OFTEN DID YOU HAVE SIX OR MORE DRINKS ON ONE OCCASION IN THE PAST YEAR?NEVER (0 POINTS) HOW MANY DRINKS DID YOU HAVE ON A TYPICAL DAY WHEN YOU WERE DRINKING IN THE PAST YEAR?1 OR 2 (0 POINTS) HOW OFTEN DID YOU HAVE A DRINK CONTAINING ALCOHOL IN THE PAST YEAR?MONTHLY OR LESS (1 POINT) POINTS1 INTERPRETATIONNEGATIVE RECREATIONAL DRUG USE DRUG USE?NO CAFFEINE CAFFEINE USE?YES SODA,TEA, SOMETIMES COFFEE SEXUAL HX HAD SEX IN THE LAST 12 MONTHS (VAGINAL, ORAL, OR ANAL)?YES WITHMEN ONLY PREVENTION STRATEGIES DISCUSSED:OTHER USE PROTECTION?NO HAVE YOU EVER HAD AN STD?NO CONFUCIANIST CONFUCIANIST NO SABIANISM BELIEFS THAT WOULD IMPACT HEALTH CARE. LANGUAGE LANGUAGES SPOKEN:BELARUSIAN EDUCATION LEVEL OF EDUCATION:HIGH SCHOOL LEARNING BARRIERS / SPECIAL NEEDS VISION IMPAIRED?YES CONTACTS DOMESTIC VIOLENCE STATUS: DO YOU FEEL SAFE IN YOUR ENVIRONMENT?YES OCCUPATION: RETAIL. DIET: REGULAR. EXERCISE: NO REGULAR EXERCISE. MARITAL STATUS: . OTHERS AT HOME: SPOUSE. NEW PATIENT PAIN DIARY TODAY'S VISIT 12/09/2019 FROM 0-10, WHAT LEVEL IS YOUR PAIN TODAY?0 PAIN CLINIC PFS, CLERGY, PUBLIC HEALTH REFERRALS PFS REFERRAL NEEDED?NO CLERGY REFERRAL NEEDED?NO PUBLIC HEALTH REFERRAL NEEDED?NO WAS THE PROVIDER NOTIFIED OF ANY PERTINENT INFO?YES HAS THE PATIENT BEEN EDUCATED REGARDING HIS/HER PLAN OF CARE?YES HAS THE PATIENT BEEN EDUCATED REGARDING PAIN, THE RISK FOR PAIN, THE IMPORTANCE OF EFFECTIVE PAIN MANAGEMENT, AND THE PAIN ASSESSMENT PROCESS?YES HOUSING: OWNS HOME. ADVANCE DIRECTIVE ADVANCE DIRECTIVE DISCUSSED WITH PATIENT:YES HCP - SOL () HOSPITALIZATION/MAJOR DIAGNOSTIC PROCEDURE BUTCHER'S PALSY CHILD REVIEW OF SYSTEMS REVIEWED BY: PROVIDER: JOHNSON PURDY OUTBOARD MOTOR TESTER-C . CONSTITUTIONAL: ANY CHANGE IN YOUR MEDICAL CONDITION? NO . CHILLS NO . FEVER NO . INFECTION: DO YOU HAVE NEW INFECTIONS? NO . DO YOU HAVE HISTORY OF MRSA? NO . MUSCULOSKELETAL: ANY NEW PATTERNS OF PAIN OR NUMBNESS? NO . GASTROENTEROLOGY: ANY NEW CHANGE IN BOWEL CONTROL? NO . GENITOURINARY: ANY NEW CHANGE IN BLADDER CONTROL? NO . IS THERE A CHANCE YOU COULD BE ? NO . HEMATOLOGY/LYMPH: DO YOU TAKE ANY BLOOD THINNERS? (FOR EXAMPLE- COUMADIN, PLAVIX, AGGRENOX, PLATEL, PRADAXA, OR XARELTO) NO . WHEN WAS YOUR LAST DOSE? DATE: TIME: . NEUROLOGY: HAVE YOU FALLEN IN THE PAST 12 MONTHS? NO . ANY NEW EXTREMITY NUMBNESS OR WEAKNESS? NO . CARDIOLOGY: DO YOU HAVE A PACEMAKER OR DEFIBRILLATOR? NO . RESPIRATORY: HAVE YOU BEEN SICK IN THE PAST WEEK? NO . FEVER NO . FLU LIKE SYMPTOMS? NO . COUGH NO . INTEGUMENTARY: DO YOU HAVE ANY RASHES OR OPEN SORES? NO . ALLERGIC/IMMUNO: ARE YOU ALLERGIC TO IV DYE? NO . ANY NEW ALLERGIES? NO . PSYCHIATRIC: DO YOU HAVE THOUGHTS OF HURTING YOURSELF OR SOMEONE ELSE? NO . ARE YOU ABUSED, NEGLECTED, OR IN AN UNSAFE ENVIRONMENT? NO . ENDOCRINOLOGY: ARE YOU DIABETIC? NO . OTHER: DO YOU NEED ANY PRESCRIPTIONS? NO . IF YES, PLEASE LIST: ____ . ANY NEW PROBLEMS WITH YOUR MEDICATIONS? NO . WHEN DID YOU LAST EAT? ____ . WHEN DID YOU LAST DRINK? ____ . WHAT DID YOU LAST DRINK? ____ . NAME OF PERSON DRIVING YOU HOME? ____ . DO YOU HAVE ANY OTHER QUESTIONS OR CONCERNS PT DENIES ANY DISCOMFORT. . EXAMINATION GENERAL EXAMINATION: GENERALNO ACUTE DISTRESS, WELL NOURISHED AND HYDRATED. PSYCHAPPROPRIATE MOOD AND AFFECT , ORIENTED X 3. ASSESSMENTS SACROILIITIS, NOT ELSEWHERE CLASSIFIED - M46.1 (PRIMARY) TREATMENT SACROILIITIS, NOT ELSEWHERE CLASSIFIED CLINICAL NOTES: 33-YEAR-OLD FEMALE FOR CHRONIC PAIN FOLLOW-UP. GIVEN PRESENTING SYMPTOMS RECOMMEND FOLLOW-UP IN CLINIC IN ONE MONTH. PATIENT HAS EXPRESSED UNDERSTANDING OF AND WAS IN AGREEMENT WITH TREATMENT PLAN. GIVEN TIME TO ASK QUESTIONS AND EXPRESS CONCERNS. TELEHEALTH VISIT PERFORMED VIA ZOOM. TIME SPENT WITH PATIENT 5 MINUTES. PREVENTIVE MEDICINE PAIN CLINIC TEACHING: THE PATIENT HAS BEEN EDUCATED REGARDING PAIN, THE RISK FOR PAIN, THE IMPORTANCE OF EFFECTIVE PAIN MANAGEMENT, AND THE PAIN ASSESSMENT PROCESS. : PT HAS GIVEN CONSENT FOR VIRTUAL VISIT AND PT CONSENTS FOR PAT APPOINTMENT. DS UNABLE TO OBTAIN VITAL SIGNS DUE TO VIRTUAL VISIT. DS DISPOSITION & COMMUNICATION FOLLOW UP 4 WEEKS (REASON: SACROILIITIS, CLINIC VISIT) ELECTRONICALLY SIGNED BY JESUS BARFIELD ON 12/11/2019 AT 11:07 AM EDT DISCLAIMER : THIS IS A VISIT SUMMARY EXTRACTED FROM THE [employer] CHART. IT IS NOT A COPY OF THE [employer] PROGRESS NOTE. YANCI
== END ==
LOC: M PAIN 13:15
PROVIDERS: ATTEND Family Medicine
DX: M46.1 Sacroiliitis, not elsewhere classified (principal); F17.210 Nicotine dependence, cigarettes, uncomplicated; Z79.899 Other long term (current) drug therapy; Z88.5 Allergy status to narcotic agent

== ENCOUNTER → 2019-12-27 | Outpatient (CLI) | payer OTHER ==
--- NOTE | 2019-12-31 00:43 | ECWPNPC ---
PATIENT NAME: DEBO GALLEGOS : 1985 GENDER: FEMALE VISIT DATE: 12/27/2019 DISCHARGE DATE: 12/27/19 0943 VISIT LOCKED DATE TIME: PHYSICIAN: DEVIN PURDY RESOURCE: DEVIN PURDY REASON FOR APPOINTMENT 1. SACROILIITIS, CLINIC VISIT PAT PHONE CALL COMPLETED HISTORY OF PRESENT ILLNESS HISTORY OF PRESENT ILLNESS: PAIN THE PATIENT DESCRIBES THE PAIN... 34-YEAR-OLD FEMALE IN FOR CHRONIC PAIN FOLLOW-UP. SHE RATES HER PAIN CURRENTLY AT A 0 OUT OF 10. PATIENT HAS HAD BILATERAL SIJ'S IN THE PAST AND FOUND THEM HELPFUL IN RELIEVING HER PAIN SYMPTOMS. THE LAST ONE WAS PERFORMED ON October. FALL RISK SCREENING: SCREENING :NO FALLS REPORTED IN THE LAST YEAR CURRENT MEDICATIONS TAKING ZYRTEC 10 MG TABLET 1 CAP ORALLY DAILY TAKING DULOXETINE HCL 60 MG CAPSULE DELAYED RELEASE PARTICLES 1 CAPSULE ORALLY ONCE A DAY, NOTES: 70MG TAKING PROVIGIL 100 MG TABLET 1 TABLET IN THE MORNING ORALLY ONCE A DAY TAKING LYRICA 150 MG CAPSULE 1 CAPSULE ORALLY ONCE A DAY, NOTES: 2XS A DAY TAKING FOLIC ACID 1 MG TABLET 1 TABLET ORALLY ONCE A DAY TAKING VITAMIN D 1000 UNIT TABLET 1 TABLET ORALLY ONCE A DAY, NOTES: 5000 TAKING TRAZODONE HCL 50 MG TABLET 1 TABLET AT BEDTIME NEEDED ORALLY ONCE A DAY TAKING COPAXONE 20 MG/ML SOLUTION PREFILLED SYRINGE 1 ML SUBCUTANEOUS ONCE A DAY TAKING DALFAMPRIDINE ER 10 MG TABLET EXTENDED RELEASE 12 HOUR 1 TABLET ORALLY TWICE A DAY TAKING MECLIZINE HCL 25 MG TABLET CHEWABLE 1 TABLET NEEDED ORALLY ONCE A DAY, NOTES: NEEDED TAKING TIZANIDINE HCL 4 MG TABLET 1 TABLET NEEDED ORALLY THREE TIMES A DAY TAKING HYDROXYZINE HCL 25 MG TABLET 1 TAB ORALLY EVERY 6 HRS NEEDED TAKING DOCUSATE SODIUM 100 MG CAPSULE 1 CAPSULE NEEDED ORALLY ONCE A DAY TAKING METHENAMINE HIPPURATE 1 GM TABLET 1 TABLET ORALLY TWICE A DAY NOT-TAKING NITROFURANTOIN MONOHYD MACRO 100 MG CAPSULE 1 CAPSULE WITH FOOD ORALLY EVERY 12 HRS NOT-TAKING PHENAZOPYRIDINE HCL 100 MG TABLET 2 TABLETS AFTER MEALS ORALLY THREE TIMES A DAY NOT-TAKING SYNTHROID 25 MCG TABLET 1 TABLET ON AN EMPTY STOMACH IN THE MORNING ORALLY ONCE A DAY NOT-TAKING BACTRIM DS 800-160 MG TABLET 1 TABLET 1 HOUR PRIOR TO YOUR CYSTOSCOPY ORALLY ONCE NOT-TAKING DIFLUCAN 100 MG TABLET 1 TABLET 1 HOUR PRIOR TO YOUR CYSTOSCOPY ORALLY ONCE NOT-TAKING FLUCONAZOLE 150 MG TABLET DIRECTED ORALLY NOT-TAKING BACLOFEN 10 MG/20ML SOLUTION DIRECTED INTRATHECAL MEDICATION LIST REVIEWED AND RECONCILED WITH THE PATIENT PAST MEDICAL HISTORY UTI MS HYPOTHYROIDISM BELLS PALSY CHRONIC BACK PAIN ALLERGIES MORPHINE SULFATE (PF): HIVES LATEX (FOR ALLERGY USE ONLY): SENSITIVITY SURGICAL HISTORY TONSILLECTOMY IUD CYSTOSCOPY 03/14/2019 BIOPSY OF THYROID NODULES 11/2019 FAMILY HISTORY FATHER: ALIVE MOTHER: ALIVE 1 BROTHER(S) , 2 SISTER(S) . 1 SON(S) , 1 DAUGHTER(S) - HEALTHY. 1 SISTER HAS CHRONS DISEASE. SOCIAL HISTORY GENERAL: TOBACCO USE ARE YOU A:CURRENT SMOKER HOW OFTEN DO YOU SMOKE CIGARETTES?EVERY DAY HOW SOON AFTER YOU WAKE UP DO YOU SMOKE YOUR FIRST CIGARETTE?6-30 MIN HOW MANY CIGARETTES A DAY DO YOU SMOKE?6-10 ARE YOU INTERESTED IN QUITTING?NOT READY TO QUIT PATIENT COUNSELED ON THE DANGERS OF TOBACCO USE AND URGED TO QUIT:12/09/2019 COUNSELED THE PATIENT ON SMOKING EFFECTS, EDUCATION [id number]/27/2020 SMOKING CESSATION INFORMATION GIVEN10/23/2019 LATEX QUESTIONNAIRE LATEX ALLERGY : HAVE YOU EVER DEVELOPED ANY TYPE OF REACTION AFTER HANDLING LATEX PRODUCTS SUCH RUBBER GLOVES, CONDOMS, DIAPHRAGMS, BALLOONS, SOCKS, OR UNDERWEAR?NO LATEX ALLERGY : HAVE YOU EVER DEVELOPED ANY TYPE OF REACTION DURING OR AFTER DENTAL APPOINTMENT, VAGINAL/RECTAL EXAMINATION, SURGICAL PROCEDURE, OR ANY OTHER EXPOSURE?NO DATE ASKED : 12/09/2019 LATEX RISK : HAVE YOU EVER HAD ANY DIFFICULTY BREATHING OR HIVES AFTER EATING OR HANDLING ANY FRUITS, OR VEGETABLES; SUCH KIWI, BANANAS, STONE FRUITS, OR CHESTNUTSNO LATEX RISK : DO YOU HAVE A PREVIOUS PERSONAL HISTORY OF MORE THAN NINE SURGERIES, SPINA BIFIDA, OR REPEATED CATHERIZATIONS? NO LATEX RISK : ARE YOU FREQUENTLY EXPOSED TO LATEX PRODUCTS IN YOUR OCCUPATION?NO ALCOHOL SCREENING DID YOU HAVE A DRINK CONTAINING ALCOHOL IN THE PAST YEAR?YES HOW OFTEN DID YOU HAVE SIX OR MORE DRINKS ON ONE OCCASION IN THE PAST YEAR?NEVER (0 POINTS) HOW MANY DRINKS DID YOU HAVE ON A TYPICAL DAY WHEN YOU WERE DRINKING IN THE PAST YEAR?1 OR 2 (0 POINTS) HOW OFTEN DID YOU HAVE A DRINK CONTAINING ALCOHOL IN THE PAST YEAR?MONTHLY OR LESS (1 POINT) POINTS1 INTERPRETATIONNEGATIVE RECREATIONAL DRUG USE DRUG USE?NO CAFFEINE CAFFEINE USE?YES SODA,TEA, SOMETIMES COFFEE SEXUAL HX HAD SEX IN THE LAST 12 MONTHS (VAGINAL, ORAL, OR ANAL)?YES WITHMEN ONLY PREVENTION STRATEGIES DISCUSSED:OTHER USE PROTECTION?NO HAVE YOU EVER HAD AN STD?NO ANABAPTIST ANABAPTIST NO HINDU BELIEFS THAT WOULD IMPACT HEALTH CARE. LANGUAGE LANGUAGES SPOKEN:NORTHERN IRISH EDUCATION LEVEL OF EDUCATION:HIGH SCHOOL LEARNING BARRIERS / SPECIAL NEEDS VISION IMPAIRED?YES CONTACTS DOMESTIC VIOLENCE STATUS: DO YOU FEEL SAFE IN YOUR ENVIRONMENT?YES OCCUPATION: RETAIL. DIET: REGULAR. EXERCISE: NO REGULAR EXERCISE. MARITAL STATUS: . OTHERS AT HOME: SPOUSE. NEW PATIENT PAIN DIARY TODAY'S VISIT 12/26/2019 FROM 0-10, WHAT LEVEL IS YOUR PAIN TODAY?0 PAIN CLINIC PFS, CLERGY, PUBLIC HEALTH REFERRALS PFS REFERRAL NEEDED?NO CLERGY REFERRAL NEEDED?NO PUBLIC HEALTH REFERRAL NEEDED?NO WAS THE PROVIDER NOTIFIED OF ANY PERTINENT INFO?YES HAS THE PATIENT BEEN EDUCATED REGARDING HIS/HER PLAN OF CARE?YES HAS THE PATIENT BEEN EDUCATED REGARDING PAIN, THE RISK FOR PAIN, THE IMPORTANCE OF EFFECTIVE PAIN MANAGEMENT, AND THE PAIN ASSESSMENT PROCESS?YES HOUSING: OWNS HOME. ADVANCE DIRECTIVE ADVANCE DIRECTIVE DISCUSSED WITH PATIENT:YES HCP - SOL () HOSPITALIZATION/MAJOR DIAGNOSTIC PROCEDURE BUTCHER'S PALSY CHILD REVIEW OF SYSTEMS REVIEWED BY: PROVIDER: JOHNSON LEE-Derrell . CONSTITUTIONAL: ANY CHANGE IN YOUR MEDICAL CONDITION? NO . CHILLS NO . FEVER NO . INFECTION: DO YOU HAVE NEW INFECTIONS? NO . DO YOU HAVE HISTORY OF MRSA? NO . MUSCULOSKELETAL: ANY NEW PATTERNS OF PAIN OR NUMBNESS? NO . GASTROENTEROLOGY: ANY NEW CHANGE IN BOWEL CONTROL? NO . GENITOURINARY: ANY NEW CHANGE IN BLADDER CONTROL? NO . IS THERE A CHANCE YOU COULD BE ? NO . HEMATOLOGY/LYMPH: DO YOU TAKE ANY BLOOD THINNERS? (FOR EXAMPLE- COUMADIN, PLAVIX, AGGRENOX, PLATEL, PRADAXA, OR XARELTO) NO . WHEN WAS YOUR LAST DOSE? DATE: TIME: . NEUROLOGY: HAVE YOU FALLEN IN THE PAST 12 MONTHS? NO . ANY NEW EXTREMITY NUMBNESS OR WEAKNESS? NO . CARDIOLOGY: DO YOU HAVE A PACEMAKER OR DEFIBRILLATOR? NO . RESPIRATORY: HAVE YOU BEEN SICK IN THE PAST WEEK? NO . FEVER NO . FLU LIKE SYMPTOMS? NO . COUGH NO . INTEGUMENTARY: DO YOU HAVE ANY RASHES OR OPEN SORES? NO . ALLERGIC/IMMUNO: ARE YOU ALLERGIC TO IV DYE? NO . ANY NEW ALLERGIES? NO . PSYCHIATRIC: DO YOU HAVE THOUGHTS OF HURTING YOURSELF OR SOMEONE ELSE? NO . ARE YOU ABUSED, NEGLECTED, OR IN AN UNSAFE ENVIRONMENT? NO . ENDOCRINOLOGY: ARE YOU DIABETIC? NO . OTHER: DO YOU NEED ANY PRESCRIPTIONS? NO . IF YES, PLEASE LIST: ____ . ANY NEW PROBLEMS WITH YOUR MEDICATIONS? NO . WHEN DID YOU LAST EAT? ____ . WHEN DID YOU LAST DRINK? ____ . WHAT DID YOU LAST DRINK? ____ . NAME OF PERSON DRIVING YOU HOME? ____ . DO YOU HAVE ANY OTHER QUESTIONS OR CONCERNS NO . VITAL SIGNS WT 212.8 LBS, HT 70 IN, BMI 30.53 INDEX, BP 131/87 MM HG, HR 120 /MIN, RR 18 /MIN, TEMP 95.6 F, OXYGEN SAT % 96%, NA INITIALS AW 0925, REVIEWED BY: EMERSON. EXAMINATION GENERAL EXAMINATION: GENERALNO ACUTE DISTRESS, WELL NOURISHED AND HYDRATED. PSYCHAPPROPRIATE MOOD AND AFFECT . LUNGS:CLEAR TO AUSCULTATION BILATERALLY, NO WHEEZES, RHONCHI, RALES. HEART:NO MURMURS, REGULAR RATE AND RHYTHM. 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 GIVEN PRESENTING SYMPTOMS RECOMMENDED FOLLOW-UP IN CLINIC IN ONE MONTH. PATIENT HAS EXPRESSED UNDERSTANDING OF AND WAS IN AGREEMENT WITH TREATMENT PLAN. GIVEN TIME TO ASK QUESTIONS AND EXPRESS CONCERNS. PROCEDURE CODES FA211 ESTABILISHED PATIENT MERGED WITH [facility] CHARGE DISPOSITION & COMMUNICATION FOLLOW UP 4 WEEKS (REASON: SACROILIITIS IN CLINIC) ELECTRONICALLY SIGNED BY JESUS BARFIELD ON 12/30/2019 AT 08:23 AM EDT DISCLAIMER : THIS IS A VISIT SUMMARY EXTRACTED FROM THE [employer] CHART. IT IS NOT A COPY OF THE [employer] PROGRESS NOTE. YANCI
== END ==
LOC: M PAIN 09:15
PROVIDERS: ATTEND Family Medicine
DX: M53.3 Sacrococcygeal disorders, not elsewhere classified (principal); E03.9 Hypothyroidism, unspecified; F17.210 Nicotine dependence, cigarettes, uncomplicated; Z79.899 Other long term (current) drug therapy; Z88.5 Allergy status to narcotic agent; Z91.040 Latex allergy status

== ENCOUNTER → 2020-01-21 | Outpatient (CLI) | payer OTHER ==
--- NOTE | 2020-01-23 02:04 | ECWPNPC ---
PATIENT NAME: DEBO GALLEGOS : 1985 GENDER: FEMALE VISIT DATE: 01/21/2020 DISCHARGE DATE: 01/21/20 1011 VISIT LOCKED DATE TIME: PHYSICIAN: DEVIN PURDY RESOURCE: DEVIN PURDY REASON FOR APPOINTMENT 1. SACROILIITIS IN CLINIC HISTORY OF PRESENT ILLNESS GENERAL: -34-YEAR-OLD FEMALE IN FOR CHRONIC PAIN FOLLOW-UP. SHE RATES HER PAIN CURRENTLY AT A 6 OUT OF 10 AND DESCRIBES IT ACHING AND CONTINUOUS. PATIENT HAS HAD BILATERAL SACROILIAC JOINT BLOCKS IN THE PAST AND FOUND GOOD RELIEF WITH THEM. PAIN SCREENING: PATIENT HAS A COMPLAINT OF ACUTE OR CHRONIC PAIN :YES LOCATION OF PAIN: SACROILLIAC INTENSITY OF PAIN (SCALE OF 1 TO 10):6 WHAT DOES YOUR PAIN FEEL LIKE:ACHING, CONTINOUS DURATION:CONTINOUS, CONSTANT, ALL DAY PAIN IS DECREASED BY:SITTING HEATING PAD PLAN/GOALS/TREATMENT/INTERVENTION/FOLLOW UP:SEE PLAN FALL RISK SCREENING: SCREENING :NO FALLS REPORTED IN THE LAST YEAR DEPRESSION SCREENING: PHQ-2 (2015 EDITION) LITTLE INTEREST OR PLEASURE IN DOING THINGS?NOT AT ALL FEELING DOWN, DEPRESSED, OR HOPELESS?NOT AT ALL TOTAL SCORE0 NURSING NOTE: -. PAIN CENTER INTAKE QUESTIONS: DO YOU HAVE A HISTORY OF MRSA? :NO DO YOU TAKE A BLOOD THINNERS? :NO DO YOU HAVE ANY BLEEDING DISORDERS? :NO ANY NEW NUMBNESS OR WEAKNESS IN YOUR LEGS OR ARMS? :NO ANY PACEMAKER,DEFIBRILLATOR, OR DORSAL COLUMN STIMULATOR? :NO DO YOU HAVE ANY RASHES OR OPEN SORES? :NO ARE YOU ALLERGIC TO IV DYE? :NO ARE YOU DIABETIC? :NO ANY NEW PROBLEMS WITH YOUR MEDICATIONS? :NO HAVE YOU RECEIVED A VACCINE IN THE PAST 30 DAYS? :NO DO YOU PLAN TO RECEIVE A VACCINE IN THE NEXT 21 DAYS? :NO DO YOU NEED ANY PRESCRIPTION? :NO DO YOU TAKE ANY IMMUNOSUPPRESSIVE MEDICATIONS? :NO IS THERE A CHANCE YOU COULD BE ? :NO ARE YOU BREAST FEEDING? :NO CURRENT MEDICATIONS TAKING ZYRTEC 10 MG TABLET 1 CAP ORALLY DAILY TAKING DULOXETINE HCL 60 MG CAPSULE DELAYED RELEASE PARTICLES 1 CAPSULE ORALLY ONCE A DAY, NOTES: 70MG TAKING PROVIGIL 100 MG TABLET 1 TABLET IN THE MORNING ORALLY ONCE A DAY TAKING LYRICA 150 MG CAPSULE 1 CAPSULE ORALLY ONCE A DAY, NOTES: 2XS A DAY TAKING FOLIC ACID 1 MG TABLET 1 TABLET ORALLY ONCE A DAY TAKING VITAMIN D 1000 UNIT TABLET 1 TABLET ORALLY ONCE A DAY, NOTES: 5000 TAKING TRAZODONE HCL 50 MG TABLET 1 TABLET AT BEDTIME NEEDED ORALLY ONCE A DAY TAKING COPAXONE 20 MG/ML SOLUTION PREFILLED SYRINGE 1 ML SUBCUTANEOUS ONCE A DAY TAKING DALFAMPRIDINE ER 10 MG TABLET EXTENDED RELEASE 12 HOUR 1 TABLET ORALLY TWICE A DAY TAKING MECLIZINE HCL 25 MG TABLET CHEWABLE 1 TABLET NEEDED ORALLY ONCE A DAY, NOTES: NEEDED TAKING TIZANIDINE HCL 4 MG TABLET 1 TABLET NEEDED ORALLY THREE TIMES A DAY TAKING HYDROXYZINE HCL 25 MG TABLET 1 TAB ORALLY EVERY 6 HRS NEEDED TAKING DOCUSATE SODIUM 100 MG CAPSULE 1 CAPSULE NEEDED ORALLY ONCE A DAY TAKING METHENAMINE HIPPURATE 1 GM TABLET 1 TABLET ORALLY TWICE A DAY NOT-TAKING NITROFURANTOIN MONOHYD MACRO 100 MG CAPSULE 1 CAPSULE WITH FOOD ORALLY EVERY 12 HRS NOT-TAKING PHENAZOPYRIDINE HCL 100 MG TABLET 2 TABLETS AFTER MEALS ORALLY THREE TIMES A DAY NOT-TAKING SYNTHROID 25 MCG TABLET 1 TABLET ON AN EMPTY STOMACH IN THE MORNING ORALLY ONCE A DAY NOT-TAKING BACTRIM DS 800-160 MG TABLET 1 TABLET 1 HOUR PRIOR TO YOUR CYSTOSCOPY ORALLY ONCE NOT-TAKING DIFLUCAN 100 MG TABLET 1 TABLET 1 HOUR PRIOR TO YOUR CYSTOSCOPY ORALLY ONCE NOT-TAKING FLUCONAZOLE 150 MG TABLET DIRECTED ORALLY NOT-TAKING BACLOFEN 10 MG/20ML SOLUTION DIRECTED INTRATHECAL MEDICATION LIST REVIEWED AND RECONCILED WITH THE PATIENT PAST MEDICAL HISTORY UTI MS HYPOTHYROIDISM BELLS PALSY CHRONIC BACK PAIN ALLERGIES MORPHINE SULFATE (PF): HIVES LATEX (FOR ALLERGY USE ONLY): SENSITIVITY SURGICAL HISTORY TONSILLECTOMY IUD CYSTOSCOPY 03/14/2019 BIOPSY OF THYROID NODULES 11/2019 FAMILY HISTORY FATHER: ALIVE MOTHER: ALIVE 1 BROTHER(S) , 2 SISTER(S) . 1 SON(S) , 1 DAUGHTER(S) - HEALTHY. 1 SISTER HAS CHRONS DISEASE. SOCIAL HISTORY GENERAL: TOBACCO USE ARE YOU A:CURRENT SMOKER ARE YOU INTERESTED IN QUITTING?NOT READY TO QUIT COUNSELED THE PATIENT ON SMOKING EFFECTS, EDUCATION [id number]/09/2020 HOW MANY CIGARETTES A DAY DO YOU SMOKE?6-10 HOW SOON AFTER YOU WAKE UP DO YOU SMOKE YOUR FIRST CIGARETTE?6-30 MIN HOW OFTEN DO YOU SMOKE CIGARETTES?EVERY DAY PATIENT COUNSELED ON THE DANGERS OF TOBACCO USE AND URGED TO QUIT:01/21/2020 SMOKING CESSATION INFORMATION GIVEN01/21/2020 LATEX QUESTIONNAIRE LATEX ALLERGY : HAVE YOU EVER DEVELOPED ANY TYPE OF REACTION AFTER HANDLING LATEX PRODUCTS SUCH RUBBER GLOVES, CONDOMS, DIAPHRAGMS, BALLOONS, SOCKS, OR UNDERWEAR?NO LATEX ALLERGY : HAVE YOU EVER DEVELOPED ANY TYPE OF REACTION DURING OR AFTER DENTAL APPOINTMENT, VAGINAL/RECTAL EXAMINATION, SURGICAL PROCEDURE, OR ANY OTHER EXPOSURE?NO LATEX RISK : HAVE YOU EVER HAD ANY DIFFICULTY BREATHING OR HIVES AFTER EATING OR HANDLING ANY FRUITS, OR VEGETABLES; SUCH KIWI, BANANAS, STONE FRUITS, OR CHESTNUTSNO LATEX RISK : DO YOU HAVE A PREVIOUS PERSONAL HISTORY OF MORE THAN NINE SURGERIES, SPINA BIFIDA, OR REPEATED CATHERIZATIONS? NO LATEX RISK : ARE YOU FREQUENTLY EXPOSED TO LATEX PRODUCTS IN YOUR OCCUPATION?NO DATE ASKED : 01/21/2020 ALCOHOL SCREENING DID YOU HAVE A DRINK CONTAINING ALCOHOL IN THE PAST YEAR?YES HOW OFTEN DID YOU HAVE SIX OR MORE DRINKS ON ONE OCCASION IN THE PAST YEAR?NEVER (0 POINTS) HOW MANY DRINKS DID YOU HAVE ON A TYPICAL DAY WHEN YOU WERE DRINKING IN THE PAST YEAR?1 OR 2 (0 POINTS) HOW OFTEN DID YOU HAVE A DRINK CONTAINING ALCOHOL IN THE PAST YEAR?MONTHLY OR LESS (1 POINT) POINTS1 INTERPRETATIONNEGATIVE RECREATIONAL DRUG USE DRUG USE?NO CAFFEINE CAFFEINE USE?YES SODA,TEA, SOMETIMES COFFEE SEXUAL HX HAD SEX IN THE LAST 12 MONTHS (VAGINAL, ORAL, OR ANAL)?YES WITHMEN ONLY PREVENTION STRATEGIES DISCUSSED:OTHER USE PROTECTION?NO HAVE YOU EVER HAD AN STD?NO ISLAM ISLAM NO CONGREGATION BELIEFS THAT WOULD IMPACT HEALTH CARE. LANGUAGE LANGUAGES SPOKEN:TURKMEN EDUCATION LEVEL OF EDUCATION:HIGH SCHOOL LEARNING BARRIERS / SPECIAL NEEDS VISION IMPAIRED?YES CONTACTS DOMESTIC VIOLENCE STATUS: DO YOU FEEL SAFE IN YOUR ENVIRONMENT?YES OCCUPATION: RETAIL. DIET: REGULAR. EXERCISE: NO REGULAR EXERCISE. MARITAL STATUS: . OTHERS AT HOME: SPOUSE. NEW PATIENT PAIN DIARY TODAY'S VISIT 12/26/2019 FROM 0-10, WHAT LEVEL IS YOUR PAIN TODAY?0 PAIN CLINIC PFS, CLERGY, PUBLIC HEALTH REFERRALS PFS REFERRAL NEEDED?NO CLERGY REFERRAL NEEDED?NO PUBLIC HEALTH REFERRAL NEEDED?NO WAS THE PROVIDER NOTIFIED OF ANY PERTINENT INFO?YES HAS THE PATIENT BEEN EDUCATED REGARDING HIS/HER PLAN OF CARE?YES HAS THE PATIENT BEEN EDUCATED REGARDING PAIN, THE RISK FOR PAIN, THE IMPORTANCE OF EFFECTIVE PAIN MANAGEMENT, AND THE PAIN ASSESSMENT PROCESS?YES HOUSING: OWNS HOME. ADVANCE DIRECTIVE ADVANCE DIRECTIVE DISCUSSED WITH PATIENT:YES HCP - SOL () HOSPITALIZATION/MAJOR DIAGNOSTIC PROCEDURE BUTCHER'S PALSY CHILD REVIEW OF SYSTEMS CONSTITUTIONAL: ANY RECENT FEVER OR ILLNESS NO . CHILLS NO . GASTROENTEROLOGY: BOWEL INCONTINENCE NO . ANY NEW CHANGE IN BOWEL CONTROL? NO . ABDOMINAL PAIN NO . CONSTIPATION NO . GENITOURINARY: ANY NEW CHANGE IN BLADDER CONTROL? NO . URINARY INCONTINENCE NO . CARDIOLOGY: CHEST PRESSURE NO . CHEST PAIN NO . RESPIRATORY: COUGH NO . SHORTNESS OF BREATH NO . VITAL SIGNS WT 210.6 LBS, HT 70 IN, BMI 30.21 INDEX, BP 150/103 MM HG, REPEAT BP 136/84 MM HG, HR 111 /MIN, RR 18 /MIN, TEMP 97.9 F, OXYGEN SAT % 94%, SAFE IN ENV? (Y/N) YES, NA INITIALS SC 09:42RN IS AWEARE OF PT'S BP AND WILL RECHECK., NAKITA MARTIDU PEDIATRIC OPHTHALMOLOGIST. EXAMINATION GENERAL EXAMINATION: GENERALNO ACUTE DISTRESS, WELL NOURISHED AND HYDRATED. PSYCHAPPROPRIATE MOOD AND AFFECT . LUNGS:CLEAR TO AUSCULTATION BILATERALLY, NO WHEEZES, RHONCHI, RALES. HEART:NO MURMURS, REGULAR RATE AND RHYTHM. BACK: BILATERAL SI JOINT TENDERNESS POSITIVE WILBER'S TEST BILATERALLY. ASSESSMENTS SACROILIITIS, NOT ELSEWHERE CLASSIFIED - M46.1 (PRIMARY) TREATMENT SACROILIITIS, NOT ELSEWHERE CLASSIFIED NOTES: BILATERAL SIJ BLOCK SIJ INFO PRINTED AND GIVEN TO PATIENT. MINOO STUBBS. CLINICAL NOTES: 34-YEAR-OLD FEMALE IN FOR CHRONIC PAIN FOLLOW-UP. GIVEN PRESENTING SYMPTOMS AND RESULTS OF PHYSICAL EXAMINATION RECOMMENDED SACROILIAC JOINT BLOCK WITH POST PROCEDURAL FOLLOW-UP. PATIENT HAS EXPRESSED UNDERSTANDING OF AND WAS IN AGREEMENT WITH TREATMENT PLAN. GIVEN TIME TO ASK QUESTIONS AND EXPRESS CONCERNS. PROCEDURE CODES FA211 ESTABILISHED PATIENT [facility] FACILITY CHARGE DISPOSITION & COMMUNICATION FOLLOW UP POSTPROCEDURE (REASON: BILATERAL SIJ BLOCK) ELECTRONICALLY SIGNED BY JESUS BARFIELD ON 01/22/2020 AT 02:06 PM EDT DISCLAIMER : THIS IS A VISIT SUMMARY EXTRACTED FROM THE [employer] CHART. IT IS NOT A COPY OF THE [employer] PROGRESS NOTE. YANCI
== END ==
LOC: M PAIN 09:45
PROVIDERS: ATTEND Family Medicine
DX: M46.1 Sacroiliitis, not elsewhere classified (principal)

== ENCOUNTER → 2020-02-02 | Outpatient (CLI) | payer OTHER | LOC: M LABSMTC 10:23 | PROVIDERS: ATTEND Anesthesiology | DX: Z11.59 Encounter for screening for other viral diseases (principal); Z03.818 Encounter for observation for suspected exposure to other biological agents ruled out | CPT/HCPCS: C9803; U0003 ==

== ENCOUNTER → 2020-02-05 | Outpatient (CLI) | payer OTHER ==
[~2020-02-05] MED LIST changes: +BUPIVACAINE HCL 0.25% 30ML VIAL As Ordered ONE; +ISOVUE-M 300 61% 15ML VIAL As Ordered ONE; +LIDOCAINE 1% SDV 30ML VIAL As Ordered ONE; +NORCO, ANEXSIA 5/325MG TABLET (HYDROcodone/ACETAMINOPHEN) As Ordered ONE; +TRIAMCINOLONE ACETONIDE SUSP 40 MG/ML VIAL (J3301) As Ordered ONE; +diazePAM 5 MG TAB As Ordered ONE; +diphenhydrAMINE 25MG CAP As Ordered ONE
--- NOTE | 2020-02-05 14:44 | REP ---
C-ARM VIEWS SACROILIAC JOINTS: Two C-arm views of the sacroiliac joints performed during bilateral sacroiliac joint injection by Dr. Serra. A needle was seen overlying each sacroiliac joint. 23 seconds fluoroscopy time utilized. Electronically Signed by Sammy Thao MD 02/05/2020 07:36 P
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
== END ==
LOC: M PAIN 10:30
PROVIDERS: ATTEND Anesthesiology
DX: M46.1 Sacroiliitis, not elsewhere classified (principal); M53.3 Sacrococcygeal disorders, not elsewhere classified
CPT/HCPCS: G0260; J3301; Q9967

== ENCOUNTER → 2020-04-17 | Outpatient (CLI) | payer OTHER ==
[~2020-04-17] MED LIST changes: -BUPIVACAINE HCL 0.25% 30ML VIAL As Ordered ONE; -ISOVUE-M 300 61% 15ML VIAL As Ordered ONE; -LIDOCAINE 1% SDV 30ML VIAL As Ordered ONE; -NORCO, ANEXSIA 5/325MG TABLET (HYDROcodone/ACETAMINOPHEN) As Ordered ONE; -TRIAMCINOLONE ACETONIDE SUSP 40 MG/ML VIAL (J3301) As Ordered ONE; -diazePAM 5 MG TAB As Ordered ONE; -diphenhydrAMINE 25MG CAP As Ordered ONE
== END ==
LOC: M OUTALCOH 07:54
PROVIDERS: ATTEND Psychiatry & Neurology Addiction Medicine
DX: F10.20 Alcohol dependence, uncomplicated (principal)

== ENCOUNTER 2020-05-12 10:00 | Outpatient (RCR) | payer OTHER | END 2020-05-13 | LOC: M OUTALCOH 10:00 | PROVIDERS: ATTEND Psychiatry & Neurology Addiction Medicine | DX: F10.20 Alcohol dependence, uncomplicated (principal); F17.200 Nicotine dependence, unspecified, uncomplicated ==

== ENCOUNTER 2020-05-28 01:11 | Emergency (ER) | payer OTHER ==
[~2020-05-28] VITALS: Ht 165.1 cm; Wt 91.5 kg
[2020-05-28 05:00] LABS: CHLAMYDIA DNA AMPLIFICATION NEGATIVE (NEGATIVE); GC DNA AMPLIFICATION POSITIVE (NEGATIVE)
[2020-05-28] MEDS ORDERED: LIDOCAINE 1% SDV 5ML VIAL DILUENT ONE (05:30)
[2020-05-28] MEDS ORDERED: AZITHROMYCIN 250MG TABLET PO ONE (05:30)
[2020-05-28] MEDS ORDERED: cefTRIAXone SOD 250MG VIAL (J0696 PER 250MG) IM ONE (05:30)
[2020-05-28 05:56] VITALS: BP 146/78
== END 2020-05-28 05:58 | disposition home or self-care (01) ==
LOC: M ED 01:11
DX: A54.9 Gonococcal infection, unspecified (principal); G35 Multiple sclerosis; F17.200 Nicotine dependence, unspecified, uncomplicated; Z88.5 Allergy status to narcotic agent; Z79.899 Other long term (current) drug therapy; Z79.3 Long term (current) use of hormonal contraceptives
CPT/HCPCS: 87661; 96372; 99283; J0696

== ENCOUNTER → 2020-06-02 | Outpatient (CLI) | payer OTHER ==
[2020-06-02 16:00] LABS: HEMATOCRIT 45.7 % (36.0-47.0); HEMOGLOBIN 14.9 g/dl (12.0-15.5); MEAN CORPUSCULAR HEMOGLOBIN 31.8 pg (27.0-33.0); MEAN CORPUSCULAR HGB CONC 32.6 g/dl (32.0-36.5); MEAN CORPUSCULAR VOLUME 97.4 fl (80.0-96.0); PLATELET COUNT, AUTOMATED 424 10^3/uL (150-450); RED BLOOD COUNT 4.69 10^6/uL (4.00-5.40); WHITE BLOOD COUNT 16.8 10^3/uL (4.0-10.0)
[2020-06-02 16:19] LABS: HEMOGLOBIN A1c 5.2 %
[2020-06-02 16:34] LABS: ALBUMIN 3.6 GM/DL (3.2-5.2); ALT/SGPT 9 U/L (12-78); BILIRUBIN,TOTAL 0.2 MG/DL (0.2-1.0); BLOOD UREA NITROGEN 5 MG/DL (7-18); CALCIUM LEVEL 9.5 MG/DL (8.5-10.1); CARBON DIOXIDE LEVEL 26 MEQ/L (21-32); CHLORIDE LEVEL 103 MEQ/L (98-107); CREATININE FOR GFR 0.64 MG/DL (0.55-1.30); FREE T4 0.72 NG/DL (0.76-1.46); GLOMERULAR FILTRATION RATE > 60.0 (>60); GLUCOSE, FASTING 77 MG/DL (70-100); POTASSIUM SERUM 4.5 MEQ/L (3.5-5.1); SODIUM LEVEL 137 MEQ/L (136-145); THYROID STIMULATING HORMONE 0.102 uIU/ML (0.358-3.740); TOTAL PROTEIN 6.6 GM/DL (6.4-8.2)
[2020-06-02 16:35] LABS: TOTAL 25(OH) VITAMIN D 48.4 NG/ML (30.0-100.0)
== END ==
LOC: M PLALAB 12:36
PROVIDERS: ATTEND Family Medicine
DX: Z79.899 Other long term (current) drug therapy (principal)

== ENCOUNTER → 2020-06-04 | Outpatient (REF) | payer OTHER | LOC: M LAB REF 16:36 | PROVIDERS: ATTEND Physician Assistant | DX: Z11.3 Encounter for screening for infections with a predominantly sexual mode of transmission (principal) ==

== ENCOUNTER 2020-06-12 08:45 | Outpatient (RCR) | payer OTHER | END 2020-06-13 | LOC: M OUTALCOH 08:45 | PROVIDERS: ATTEND Psychiatry & Neurology Addiction Medicine | DX: F10.20 Alcohol dependence, uncomplicated (principal); F17.200 Nicotine dependence, unspecified, uncomplicated ==

== ENCOUNTER → 2020-06-25 | Outpatient (CLI) | payer OTHER | LOC: M PLALAB 12:08 | PROVIDERS: ATTEND Psychiatry & Neurology Addiction Medicine | DX: F10.20 Alcohol dependence, uncomplicated (principal) ==

== ENCOUNTER → 2020-07-13 | Outpatient (RCR) | payer OTHER | LOC: M OUTALCOH 06-15 11:48 | PROVIDERS: ATTEND Psychiatry & Neurology Addiction Medicine | DX: F10.20 Alcohol dependence, uncomplicated (principal); F17.200 Nicotine dependence, unspecified, uncomplicated ==

== ENCOUNTER 2020-07-26 03:17 | Inpatient (IN) | payer OTHER ==
[~2020-07-26] VITALS: Ht 165.1 cm; Wt 85.3 kg
[2020-07-26] MEDS ORDERED: HALOPERIDOL 5MG/ML VIAL (J1630 PER 1) As Ordered ONE (03:24)
[2020-07-26] MEDS ORDERED: diphenhydrAMINE 50MG/ML VIAL (J1200) As Ordered ONE (03:24)
[2020-07-26] MEDS ORDERED: LORazepam 2 MG/ML VIAL As Ordered ONE ×2 (03:25→05:02)
[2020-07-26] MEDS ORDERED: diphenhydrAMINE 50MG/ML VIAL (J1200) IM ONE (03:30)
[2020-07-26] MEDS ORDERED: LORazepam 2 MG/ML VIAL IM ONE (03:30)
[2020-07-26] MEDS ORDERED: HALOPERIDOL 5MG/ML VIAL (J1630 PER 1) IM ONE (03:30)
[2020-07-26 03:49] LABS: HEMATOCRIT 44.6 % (36.0-47.0); HEMOGLOBIN 14.4 g/dl (12.0-15.5); MEAN CORPUSCULAR HEMOGLOBIN 30.1 pg (27.0-33.0); MEAN CORPUSCULAR HGB CONC 32.3 g/dl (32.0-36.5); MEAN CORPUSCULAR VOLUME 93.3 fl (80.0-96.0); PLATELET COUNT, AUTOMATED 467 10^3/uL (150-450); RED BLOOD COUNT 4.78 10^6/uL (4.00-5.40); WHITE BLOOD COUNT 14.4 10^3/uL (4.0-10.0)
[2020-07-26] MEDS ORDERED: LORazepam 2 MG/ML VIAL IV STA (05:01)
[2020-07-26 05:03] LABS: RSV AMPLIFICATION NEGATIVE (NEGATIVE)
[2020-07-26] MEDS ORDERED: NS 1,000 ML IV ONE (05:15)
[2020-07-26 05:39] LABS: ACETAMINOPHEN LEVEL < 2.0 UG/ML (10.0-30.0); ALBUMIN 3.7 GM/DL (3.2-5.2); ALT/SGPT 17 U/L (12-78); BILIRUBIN,DIRECT < 0.1 MG/DL (0.0-0.2); BILIRUBIN,TOTAL 0.1 MG/DL (0.2-1.0); BLOOD UREA NITROGEN 4 MG/DL (7-18); CALCIUM LEVEL 9.1 MG/DL (8.5-10.1); CARBON DIOXIDE LEVEL 23 MEQ/L (21-32); CHLORIDE LEVEL 113 MEQ/L (98-107); CREATININE FOR GFR 0.67 MG/DL (0.55-1.30); ETHYL ALCOHOL (ETHANOL) 0.141 % (0.000-0.010); GLOMERULAR FILTRATION RATE > 60.0 (>60); GLUCOSE, FASTING 110 MG/DL (70-100); POTASSIUM SERUM 3.8 MEQ/L (3.5-5.1); SALICYLATE LEVEL 6.6 MG/DL (5.0-30.0); SODIUM LEVEL 144 MEQ/L (136-145); THYROID STIMULATING HORMONE 0.649 uIU/ML (0.358-3.740); TOTAL PROTEIN 6.8 GM/DL (6.4-8.2)
[2020-07-26] MEDS ORDERED: DERMABOND TOPICAL SKIN ADHESIVE TOP ONE (06:00)
[2020-07-26 06:07] LABS: AMPHETAMINES LEVEL URINE NEGATIVE (NEGATIVE); BARBITURATES URINE NEGATIVE (NEGATIVE); CANNABINOIDS URINE POSITIVE (NEGATIVE); COCAINE METABOLITE URINE NEGATIVE (NEGATIVE); METHADONE URINE NEGATIVE (NEGATIVE); OPIATES URINE NEGATIVE (NEGATIVE); PHENCYCLIDINE URINE NEGATIVE (NEGATIVE)
[2020-07-26 07:13] LABS: BENZODIAZEPINES URINE NEGATIVE (NEGATIVE)
[2020-07-26] MEDS ORDERED: METAL LOCK LOOP XX ONE (11:43)
[2020-07-26] MEDS ORDERED: NICOTINE 21MG/24HR 1 EA TRANSDERMAL TD ONE (14:00)
[2020-07-26] MEDS ORDERED: TIZA2TAB6 PO (16:21)
[2020-07-26] MEDS ORDERED: D31000TA2 PO (16:21)
[2020-07-26] MEDS ORDERED: CETI-24 PO (16:21)
[2020-07-26] MEDS ORDERED: TRAZ-257 PO (16:21)
--- NOTE | 2020-07-26 16:38 | REP ---
INDICATION: trauma COMPARISON: None. TECHNIQUE: Four views left ankle. FINDINGS: There is no evidence of acute fracture, dislocation, or intrinsic bone disease. IMPRESSION: No fracture or dislocation. <Electronically signed by Sammy Thao > 07/26/20 [id number]
--- NOTE | 2020-07-26 18:13 | ECGEPIP ---
[facility] - ED Test Date: 2020-07-26 Pat Name: DEBO GALLEGOS Department: Room: - Gender: Female Manager Of Transportation: RHONDA : 1985 Requested By: Lin Blood Order Number: [id number] Reading MD: Lin Blood Measurements Intervals [place] Rate: 127 P: 50 ME: 148 QRS: 60 QRSD: 88 T: 41 QT: 310 QTc: 451 Interpretive Statements SINUS TACHYCARDIA MINIMAL ST DEPRESSION ABNORMAL RHYTHM ECG No prior Electronically Signed on 07-26-2020 18:13:20 EST by Lin Blood
[2020-07-27] MEDS: VITAMIN D 1,000 INTERNATIONAL UNITS TABLET PO SCH (08:14)
[2020-07-27] MEDS: FOLIC ACID 1 MG TAB PO SCH (08:14)
[2020-07-27] MEDS: DULoxetine 30 MG CAP (CYMBALTA) PO SCH (08:14)
[2020-07-27] MEDS: CETIRIZINE (ZyrTEC) 10 MG TAB PO SCH ×2 (08:14→20:47)
[2020-07-27] MEDS: PREGABALIN 75 MG CAP(LYRICA) PO SCH ×2 (08:14→20:47)
[2020-07-27] MEDS ORDERED: MODAFINIL 100 MG TABLET PO SCH (09:00)
[2020-07-27] MEDS ORDERED: NICOTINE 21MG/24HR 1 EA TRANSDERMAL TD ONE (10:00)
[2020-07-27] MEDS ORDERED: hydrOXYzine 50 MG TAB PO ONE (15:30)
[2020-07-27] MEDS ORDERED: IBUPROFEN 800 MG TAB PO ONE (20:15)
[2020-07-27] MEDS ORDERED: tiZANidine 4 MG TAB PO ONE (20:15)
[2020-07-27] MEDS ORDERED: hydrOXYzine 25 MG TAB PO STA (21:18)
[2020-07-27] MEDS ORDERED: traZODone 100 MG TAB PO ONE (21:30)
[2020-07-28] MEDS ORDERED: NICOTINE 21MG/24HR 1 EA TRANSDERMAL TD ONE (09:00)
[2020-07-28] MEDS ORDERED: PREGABALIN 75 MG CAP(LYRICA) PO SCH (09:00)
[2020-07-28] MEDS ORDERED: CETIRIZINE (ZyrTEC) 10 MG TAB PO SCH (09:00)
[2020-07-28] MEDS ORDERED: DULoxetine 30 MG CAP (CYMBALTA) PO SCH (09:00)
[2020-07-28] MEDS ORDERED: DULoxetine 20 MG CAP (CYMBALTA) PO SCH (09:00)
[2020-07-28] MEDS ORDERED: VITAMIN D 1,000 INTERNATIONAL UNITS TABLET PO SCH (09:00)
[2020-07-28] MEDS ORDERED: FOLIC ACID 1 MG TAB PO SCH (09:00)
[2020-07-28] MEDS ORDERED: MODAFINIL 100 MG TABLET PO SCH ×2 (09:00)
[2020-07-28] MEDS ORDERED: PROBCAP14 PO (09:06)
[2020-07-28] MEDS ORDERED: HYDR-4570 PO (09:06)
[2020-07-28] MEDS ORDERED: HYDR-3363 PO (09:06)
[2020-07-28] MEDS: PREGABALIN 75 MG CAP(LYRICA) PO SCH ×2 (09:12→20:03)
[2020-07-28] MEDS: DULoxetine 30 MG CAP (CYMBALTA) PO SCH (09:13)
[2020-07-28] MEDS: CETIRIZINE (ZyrTEC) 10 MG TAB PO SCH ×2 (09:15→20:03)
[2020-07-28] MEDS: FOLIC ACID 1 MG TAB PO SCH (09:15)
[2020-07-28] MEDS: VITAMIN D 1,000 INTERNATIONAL UNITS TABLET PO SCH (09:15)
[2020-07-28] MEDS ORDERED: traZODone 50 MG TAB PO PRN (12:45)
[2020-07-28] MEDS ORDERED: MAALOX 30 ML SUSP *UDC PO PRN (12:45)
[2020-07-28] MEDS ORDERED: MOM 30ML SUSPENSION UDC PO PRN (12:45)
[2020-07-28 14:14] VITALS: BP 150/90
[2020-07-28 16:00] VITALS: BP 129/86
[2020-07-28] MEDS ORDERED: cloNIDine 0.1 MG TAB PO ONE ×2 (16:00→23:30)
[2020-07-28] MEDS: IBUPROFEN 600MG TAB PO PRN (16:36)
[2020-07-28] MEDS: ACETAMINOPHEN TAB 650MG DOSE (2X325MG) PO PRN (20:04)
[2020-07-28] MEDS ORDERED: traZODone 100 MG TAB PO SCH (21:00)
[2020-07-28] MEDS: traZODone 100 MG TAB PO PRN (23:23)
[2020-07-28] MEDS: tiZANidine 4 MG TAB PO PRN (23:23)
[2020-07-28 23:24] VITALS: BP 136/91
[2020-07-29 06:00] VITALS: BP 113/67
[2020-07-29] MEDS: FOLIC ACID 1 MG TAB PO SCH (08:11)
[2020-07-29] MEDS: MODAFINIL 100 MG TABLET PO SCH ×2 (08:11→11:50)
[2020-07-29] MEDS: CETIRIZINE (ZyrTEC) 10 MG TAB PO SCH ×2 (08:11→20:12)
[2020-07-29] MEDS: DULoxetine 30 MG CAP (CYMBALTA) PO SCH (08:11)
[2020-07-29] MEDS: PREGABALIN 75 MG CAP(LYRICA) PO SCH ×2 (08:12→20:12)
[2020-07-29] MEDS: IBUPROFEN 600MG TAB PO PRN ×2 (08:55→20:11)
[2020-07-29] MEDS ORDERED: NICOTINE 21MG/24HR 1 EA TRANSDERMAL TD SCH (09:00)
[2020-07-29] MEDS ORDERED: VITAMIN D 1,000 INTERNATIONAL UNITS TABLET PO SCH (09:00)
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
[2020-07-29] MEDS: ACETAMINOPHEN TAB 650MG DOSE (2X325MG) PO PRN (11:51)
[2020-07-29] MEDS: NICOTINE 21MG/24HR 1 EA TRANSDERMAL TD SCH (12:15)
[2020-07-29] MEDS: hydrOXYzine 50 MG TAB PO SCH (12:15)
[2020-07-29] MEDS ORDERED: DOCUSATE SODIUM 100MG CAPSULE PO PRN (12:15)
--- NOTE | 2020-07-29 12:36 | HPEPDOC ---
[facility] Medical History & Physical Date of Admission Jul 28, 2020 Date of Service: Jul 29, 2020 Attending Physician: Denice Cruz MD History and Physical MEDICAL H&P HISTORY OF PRESENT ILLNESS: Patient is a 34-year-old female with past medical history of depression, anxiety, multiple sclerosis, alcohol abuse, tobacco use, high blood pressure who presented to [facility] emergency room after being brought in by police for suicidal ideation. Current to records the patient attempted to break into her 's house and was later found have a cut on her left wrist which was bleeding. She had made comments to "shoot me" to the police and stated that she's been having a hard time coping with recent stressors in her life. Multiple life stressors include being isolated from her family due to Covid, recent arrest in April 2020, not having a job, not being able to see her children, recent separation from her . The patient admits to having increased depression, at times suicidal thoughts, increased tearfulness, flight of ideas, poor impulse control. She denies any sleep, concentration issues. The patient was noted to be playing with her wound and pressing her fingers into the wound in the emergency room. The patient was admitted for unspecified depressive disorder to inpatient mental health unit. Upon my evaluation of her today, we discussed her past medical history including multiple sclerosis, tobacco use, high blood pressure. Her left forearm wound healed to be healing well. She denied chest pain, shortness of breath, fevers, chills, nausea, vomiting but did complain of some left ankle swelling after having "rolled my ankle". REVIEW OF SYSTEMS: NEg except mentioned above PAST MEDICAL HISTORY: 1. Depression 2. anxiety 3. Multiple sclerosis 4. Alcohol abuse 5. tobacco use 6. HTN PAST SURGICAL HISTORY: 1. Tonsillectomy 2. Breast augmentation 3. IUD placement FAMILY HISTORY: Father: hypothyroidism, prostate issues. alive Mother: healthy, alive SOCIAL HISTORY: Smoker, 1 PPD for 15 years. States to have recently been clean from alcohol and has been seeing addiction counselling specialist but recently relapsed due to stressors. Admits to marijuana use. Binge drinks alcohol "weekly". Lives with a roommate currently. Full Code ALLERGIES: Please see below. HOME MEDICATIONS: Please see below. PHYSICAL EXAMINATION: VS: Please see below CONSTITUTIONAL: No acute distress, resting comfortably, AAO x 3 EYES: PERRLA, EOM intact HENT, MOUTH: Normocephalic, atraumatic, moist mucous membranes, NECK: SUPPLE, no JVD, no lymphadenopathy, no carotid bruit CV: Regular rate and rhythm, S1S2 normal, no murmurs/rubs/gallops RESPIRATORY: Clear to auscultation bilaterally, no rales/rhonchi/wheezes GI: obese abd, BS positive in 4 quadrants, soft, nontender, nondistended, no rebound or guarding, no organomegaly : Deferred MUSCULOSKELETAL: Normal ROM. No cyanosis, clubbing, swelling, joint deformity, extremity edema INTEGUMENTARY: left forearm laceration. no rashes, no erythema NEUROLOGIC: Cranial Nerves II-XII are intact, no focal deficits PSYCHIATRIC: Mood and affect are normal LABORATORY DATA: Please see below IMAGING: None ASSESSMENT: 34-year-old female with past medical history of depression, anxiety, multiple sclerosis, alcohol abuse, tobacco use, high blood pressure admitted for unspecified depressive disorder, suicidal ideation. PLAN: 1. Unspecified depressive disorder, suicidal ideation. Plan per psychiatry team 2. Multiple sclerosis, currently not in flare and stable. C/w home glatiramer acetate injections QHS. If patient's family can bring in other med, can resume as well. 3. Tobacco use. Starting nicotine patch. 4. Left ankle pain/swelling. Likely strain/sprain. Would recommendation of icing, elevating when not walking, SANDEE bandage if safe to to do. 5. Anxiety. Plan per psychiatry team 6. HTN. Not currently on medications, will not start. DISPOSITION: Thank you kindly for this consult. At this time, since her chronic medical issues appear stable, will sign off. If we are needed to reassess, please do not hesitate to contact at any time. Vital Signs Vital Signs Date Time Temp Pulse Resp B/P (MAP) Pulse Ox O2 Delivery O2 Flow Rate FiO2 07/29/20 06:00 97.3 79 18 113/67 (82) 100 Room Air Home Medications Scheduled Cetirizine HCl (Cetirizine HCl) 10 Mg Tablet, 10 MG PO BID Cholecalciferol (Vitamin D3) (Vitamin D3) 1,000 Unit Tablet, 3,000 UNITS PO DAILY Dalfampridine (Ampyra) 10 Mg Tab.er.12h, 10 MG PO BID Duloxetine Hcl (Duloxetine HCl) 30 Mg Capsule.dr, 30 MG PO DAILY TAKE WITH 20MG CAPS. TOTAL OF 90MG Duloxetine Hcl (Duloxetine HCl) 20 Mg Capsule.dr, 60 MG PO DAILY WITH 30MG CAPSULE Folic Acid (Folic Acid) 1 Mg Tablet, 1 MG PO DAILY Glatiramer Acetate (Glatiramer Acetate) 20 Mg/1 Ml Syringe, 20 MG SC QHS Hydroxyzine HCl (Hydroxyzine HCl) 25 Mg Tablet, 50 MG PO BID MORNING AND LUNCH Lactobacillus Acidophilus (Probiotic) 1 Each Capsule, 1 CAP PO DAILY Modafinil (Provigil) 100 Mg Tablet, 100 MG PO BID MORNING AND LUNCHTIME Pregabalin (Lyrica) 150 Mg Capsule, 150 MG PO BID Trazodone HCl (Trazodone HCl) 100 Mg Tablet, 100 MG PO QHS Scheduled PRN Docusate Sodium (Docusate Sodium) 100 Mg Capsule, 100 MG PO DAILY PRN for CONSTIPATION Hydroxyzine HCl (Hydroxyzine HCl) 25 Mg Tablet, 25 MG PO DAILY PRN for ANXIETY Tizanidine HCl (Tizanidine HCl) 2 Mg Tablet, 4 MG PO TID PRN for MUSCLE SPASMS Allergies Coded Allergies: morphine (Verified Allergy, Severe, Anaphylaxis, 11/20/18) A-FIB/CHADSVASC A-FIB History Current/History of A-Fib/PAF?: No Current PO Anticoag Therapy: No Age/Risk Factor Scoring CHADSVASC: CHADSVASC Response (Comments) Value Age Risk Factor Age < 65 years old 0 Gender Risk Factor Female 1 Hx of CHF No 0 Hx of HTN Yes 1 Hx of Stroke/TIA/or VTE No 0 Hx of Diabetes No 0 Hx of Vascular Disease No 0 Total 2 Treatment Treatment ordered: Other Other anticoagulant ordered: none Denice Cruz MD Jul 29, 2020 12:36
[2020-07-29] MEDS: LACTOBACILLUS ACIDOPHILUS CAP (BACID) PO SCH (14:25)
[2020-07-29] MEDS: GLATIRAMER ACETATE 20 MG/ML SC SCH (20:14)
[2020-07-29] MEDS: traZODone 100 MG TAB PO PRN (20:57)
[2020-07-30 06:39] VITALS: BP 99/55
[2020-07-30] MEDS: MODAFINIL 100 MG TABLET PO SCH ×2 (08:39→13:02)
[2020-07-30] MEDS: LACTOBACILLUS ACIDOPHILUS CAP (BACID) PO SCH (08:39)
[2020-07-30] MEDS: DULoxetine 30 MG CAP (CYMBALTA) PO SCH (08:40)
[2020-07-30] MEDS: PREGABALIN 75 MG CAP(LYRICA) PO SCH ×2 (08:40→20:05)
[2020-07-30] MEDS: FOLIC ACID 1 MG TAB PO SCH (08:41)
[2020-07-30] MEDS: hydrOXYzine 50 MG TAB PO SCH ×2 (08:41→13:02)
[2020-07-30] MEDS: CETIRIZINE (ZyrTEC) 10 MG TAB PO SCH ×2 (08:41→20:05)
[2020-07-30] MEDS: NICOTINE 21MG/24HR 1 EA TRANSDERMAL TD SCH (08:42)
[2020-07-30] MEDS: tiZANidine 4 MG TAB PO PRN (10:42)
--- NOTE | 2020-07-30 14:28 | MHDSPDOC ---
[facility] Discharge Summary Discharge Summary DATE OF ADMISSION: Jul 28, 2020 at 12:35 DATE OF DISCHARGE: DISCHARGE DIAGNOSES: 1. . 2. . REASON FOR ADMISSION: CONSULTANTS INVOLVED: TREATMENT AND PROGRESS ON THE UNIT : . HOSPITAL COURSE: DISCHARGE ASSESSMENT: MENTAL STATUS EXAMINATION ON DISCHARGE: Patient is a -year old female, who is . Speech is . Language skills are . Thought processes including: . Thought content: . Abstract reasoning, and computation: . Description of associations: . Description of abnormal or psychotic thoughts: . Judgment: . Insight: . Orientation to . Recent and remote memory: . Attention span and concentration: . Language: . Fund of knowledge: . Mood: . Affect: . MEDICATIONS ON DISCHARGE: - for . - for . - for . PLAN/FOLLOWUP ARRANGEMENTS: . The amount of time spent in the coordination of care for this patient was approximately minutes. Vital Signs/I&Os Vital Signs Date Time Temp Pulse Resp B/P (MAP) Pulse Ox O2 Delivery O2 Flow Rate FiO2 07/30/20 06:39 97.5 98 16 99/55 (70) 100 Room Air Medications Scheduled Cetirizine HCl (Cetirizine HCl) 10 Mg Tablet, 10 MG PO BID, (Reported) Cholecalciferol (Vitamin D3) (Vitamin D3) 1,000 Unit Tablet, 3,000 UNITS PO DAILY, (Reported) Dalfampridine (Ampyra) 10 Mg Tab.er.12h, 10 MG PO BID, (Reported) Duloxetine Hcl (Duloxetine HCl) 30 Mg Capsule.dr, 30 MG PO DAILY, (Reported) TAKE WITH 20MG CAPS. TOTAL OF 90MG Duloxetine Hcl (Duloxetine HCl) 20 Mg Capsule.dr, 60 MG PO DAILY, (Reported) WITH 30MG CAPSULE Folic Acid (Folic Acid) 1 Mg Tablet, 1 MG PO DAILY, (Reported) Glatiramer Acetate (Glatiramer Acetate) 20 Mg/1 Ml Syringe, 20 MG SC QHS, (Reported) Hydroxyzine HCl (Hydroxyzine HCl) 25 Mg Tablet, 50 MG PO BID, (Reported) MORNING AND LUNCH Lactobacillus Acidophilus (Probiotic) 1 Each Capsule, 1 CAP PO DAILY, (Reported) Modafinil (Provigil) 100 Mg Tablet, 100 MG PO BID, (Reported) MORNING AND LUNCHTIME Pregabalin (Lyrica) 150 Mg Capsule, 150 MG PO BID, (Reported) Trazodone HCl (Trazodone HCl) 100 Mg Tablet, 100 MG PO QHS, (Reported) Scheduled PRN Docusate Sodium (Docusate Sodium) 100 Mg Capsule, 100 MG PO DAILY PRN for CONSTIPATION, (Reported) Hydroxyzine HCl (Hydroxyzine HCl) 25 Mg Tablet, 25 MG PO DAILY PRN for ANXIETY, (Reported) Tizanidine HCl (Tizanidine HCl) 2 Mg Tablet, 4 MG PO TID PRN for MUSCLE SPASMS, (Reported) Allergies Coded Allergies: morphine (Verified Allergy, Severe, Anaphylaxis, 11/20/18) VENUS ROSE DO Jul 30, 2020 14:28
[2020-07-30 16:00] VITALS: BP 128/84
[2020-07-30] MEDS: traZODone 100 MG TAB PO PRN (20:05)
[2020-07-30] MEDS: IBUPROFEN 600MG TAB PO PRN (20:05)
[2020-07-30] MEDS: GLATIRAMER ACETATE 20 MG/ML SC SCH (20:05)
[2020-07-31 07:09] VITALS: BP 107/63
[2020-07-31] MEDS: MODAFINIL 100 MG TABLET PO SCH ×2 (07:50→12:05)
[2020-07-31] MEDS: hydrOXYzine 50 MG TAB PO SCH ×2 (07:50→12:06)
[2020-07-31] MEDS: IBUPROFEN 600MG TAB PO PRN ×2 (07:50→15:32)
[2020-07-31] MEDS: CETIRIZINE (ZyrTEC) 10 MG TAB PO SCH ×2 (08:35→20:04)
[2020-07-31] MEDS: DULoxetine 30 MG CAP (CYMBALTA) PO SCH (08:36)
[2020-07-31] MEDS: LACTOBACILLUS ACIDOPHILUS CAP (BACID) PO SCH (08:37)
[2020-07-31] MEDS: FOLIC ACID 1 MG TAB PO SCH (08:37)
[2020-07-31] MEDS: PREGABALIN 75 MG CAP(LYRICA) PO SCH ×2 (08:37→20:03)
[2020-07-31] MEDS: NICOTINE 21MG/24HR 1 EA TRANSDERMAL TD SCH (08:38)
[2020-07-31] MEDS: ACETAMINOPHEN TAB 650MG DOSE (2X325MG) PO PRN ×2 (12:06→20:03)
--- NOTE | 2020-07-31 12:17 | MHIPNPDOC ---
[facility] Progress Note Progress Note DATE OF SERVICE: 07/30/20 HISTORY: The patient has met with today, the collateral information initially thought to support a discharge t, revealed significant concerns about her behav ior and severe agitation prior, that the patient had not been open about discussing with us. The patient was discussed about staying longer and that the discharge is not safe, she threatened this provider over this, of which the interview was terminated, she became fairly upset and agitated yelling and screaming demanding further making the staff concerned about her discharge. VITAL SIGNS: See below. NEW TEST RESULTS: None . CURRENT MEDICATIONS: See below. MENTAL STATUS EXAMINATION: General: [Well dressed with good hygiene] Speech: [Spontaneous and fluid] Thought processes: [Linear and logical] Thought content: Guarded and irritated Abstract reasoning, and computation: [Intact] Description of associations: [Intact] Description of abnormal or psychotic thoughts: Threatening Judgment: Poor Insight: Poor Orientation: [Alert and orientated 3] Recent and remote memory: [Intact] Attention span and concentration: [Intact] Fund of knowledge: [Adequate] Mood: ["okay"] Affect: Angry and irritable DIAGNOSES: 1. Adjustment disorder . 2. Alcohol use disorder . 3. Cluster B personality . ASSESSMENT:The patient will need to continue here for another few days, the discharge is not safe as observation is warranted given the concerning behavior, she is not able to understand the procedure and has very poor insight and impulse control. She was not able to have any reasonable discussion about the medication change at this time due to her significant agitation MANAGEMENT PLAN: Continue medications as current . TIME SPENT: 15 minutes. Vital Signs Vital Signs Date Time Temp Pulse Resp B/P (MAP) Pulse Ox O2 Delivery O2 Flow Rate FiO2 07/31/20 07:09 98.2 91 16 107/63 (78) 98 Room Air Current Medications Current Medications Medications (Trade) Dose Ordered Sig/Neal Route PRN Reason Start Time Stop Time Status Last Admin Dose Admin Acetaminophen (Tylenol Tab) 650 mg Q6HP PRN PO HEADACHE or DISCOMFORT 07/28/20 12:45 07/31/20 12:06 Al Hydrox/Mg Hydrox/Simethicone (Mylanta) 30 ml Q4HP PRN PO HEARTBURN/INDIGESTION 07/28/20 12:45 Cetirizine HCl (ZyrTEC) 10 mg BID PO 07/27/20 09:00 07/28/20 14:39 DC 07/28/20 09:15 Cetirizine HCl (ZyrTEC) 10 mg BID PO 07/28/20 09:00 07/28/20 07:23 DC Cetirizine HCl (ZyrTEC) 10 mg BID PO 07/28/20 21:00 07/31/20 08:35 Docusate Sodium (Colace) 100 mg DAILY PRN PO CONSTIPATION 07/29/20 12:15 Duloxetine HCl (Cymbalta) 30 mg DAILY PO 07/28/20 09:00 07/28/20 07:24 DC Duloxetine HCl (Cymbalta) 60 mg DAILY PO 07/28/20 09:00 07/28/20 07:23 DC Duloxetine HCl (Cymbalta) 90 mg DAILY PO 07/27/20 09:00 07/28/20 14:39 DC 07/28/20 09:13 Duloxetine HCl (Cymbalta) 90 mg DAILY PO 07/29/20 09:00 07/31/20 08:36 Folic Acid (Folic Acid) 1 mg DAILY PO 07/27/20 09:00 07/28/20 14:39 DC 07/28/20 09:15 Folic Acid (Folic Acid) 1 mg DAILY PO 07/28/20 09:00 07/28/20 07:24 DC Folic Acid (Folic Acid) 1 mg DAILY PO 07/29/20 09:00 07/31/20 08:37 Haloperidol (Haldol) 2 mg Q4HP PRN PO anxiety 07/29/20 14:30 07/30/20 16:59 Home Med (Med Rec Complete!) ASDIRECTED XX 07/26/20 16:30 07/26/20 16:23 DC Hydroxyzine HCl (Atarax) 25 mg STAT STAT PO 07/27/20 21:18 07/27/20 21:20 DC 07/27/20 21:24 Hydroxyzine HCl (Atarax) 50 mg BID@0800,1200 PO 07/29/20 12:00 07/31/20 12:06 Ibuprofen (Advil) 600 mg Q6HP PRN PO MODERATE PAIN (PS 5-7) 07/28/20 16:00 07/31/20 07:50 Lactobacillus Acidophilus (Bacid) 1 ea DAILY PO 07/29/20 09:00 07/31/20 08:37 Lorazepam (Ativan) 2 mg STAT STAT IV 07/26/20 05:01 07/26/20 05:02 DC 07/26/20 05:06 Magnesium Hydroxide (Milk Of Magnesia) 30 ml DAILYPRN PRN PO CONSTIPATION 07/28/20 12:45 Miscellaneous (Unresolved Patient Own Med Order) SEE LABEL COMMENTS DAILY XX 07/29/20 09:00 07/29/20 14:10 DC Modafinil (Provigil) 100 mg BID PO 07/27/20 09:00 07/27/20 20:51 DC 07/27/20 09:38 Modafinil (Provigil) 100 mg BID PO 07/28/20 09:00 07/28/20 14:39 DC 07/28/20 12:21 Modafinil (Provigil) 100 mg BID@0800,1200 PO 07/29/20 08:00 07/31/20 12:05 Modafinil (Provigil) 100 mg BID@0900,1300 PO 07/28/20 09:00 07/28/20 07:25 DC Nicotine (Nicoderm Cq 21mg) 1 patch DAILY TD 07/29/20 09:00 07/29/20 12:23 DC Nicotine (Nicoderm Cq 21mg) 1 patch DAILY TD 07/29/20 09:00 07/31/20 08:38 Patient Own Medication (Patient'S Own Med) Glatiramer acetate 20 mg/... QHS SC 07/29/20 21:00 07/30/20 20:05 Pregabalin (Lyrica) 150 mg BID PO 07/27/20 09:00 07/28/20 14:39 DC 07/28/20 09:12 Pregabalin (Lyrica) 150 mg BID PO 07/28/20 09:00 07/28/20 07:24 DC Pregabalin (Lyrica) 150 mg BID PO 07/28/20 21:00 07/31/20 08:37 Tizanidine HCl (Zanaflex) 4 mg TIDP PRN PO MUSCLE SPASMS 07/28/20 14:45 07/30/20 10:42 Trazodone HCl (Desyrel) 50 mg QHSP PRN PO INSOMNIA 07/28/20 12:45 Cancel Trazodone HCl (Desyrel) 100 mg QHS PO 07/28/20 21:00 07/28/20 15:40 DC Trazodone HCl (Desyrel) 100 mg QHSP PRN PO INSOMNIA 07/28/20 15:45 07/30/20 20:05 Vitamin D (Vitamin D) 3,000 units DAILY PO 07/27/20 09:00 07/28/20 14:39 DC 07/28/20 09:15 Vitamin D (Vitamin D) 3,000 units DAILY PO 07/28/20 09:00 07/28/20 07:24 DC Vitamin D (Vitamin D) 3,000 units DAILY PO 07/29/20 09:00 07/28/20 15:40 DC Allergies Coded Allergies: morphine (Verified Allergy, Severe, Anaphylaxis, 11/20/18) VENUS ROSE DO Jul 31, 2020 12:17
--- NOTE | 2020-07-31 14:24 | MHIPNPDOC ---
[facility] Progress Note Progress Note DATE OF SERVICE: 07/31/20 HISTORY: HISTORY: The patient was met with today, the discussion primarily focused around the patient's want to leave, was fairly demeaning and questioning through the entirety of the discussion. Was not open to any idea of taking medications and generally little is gained from her during the discussion VITAL SIGNS: See below. NEW TEST RESULTS: None . CURRENT MEDICATIONS: See below. MENTAL STATUS EXAMINATION: General: [Well dressed with good hygiene] Speech: [Spontaneous and fluid] Thought processes: [Linear and logical] Thought content: Guarded and irritated Abstract reasoning, and computation: [Intact] Description of associations: [Intact] Description of abnormal or psychotic thoughts: Threatening Judgment: Poor Insight: Poor Orientation: [Alert and orientated 3] Recent and remote memory: [Intact] Attention span and concentration: [Intact] Fund of knowledge: [Adequate] Mood: ["okay"] Affect: Angry and irritable DIAGNOSES: 1. Adjustment disorder . 2. Alcohol use disorder . 3. Cluster B personality . ASSESSMENT:We will need to observe over the weekend, patient's not interested in medications and thus will not attempt to start new medication since it appears that this is more the result of a cluster B personality MANAGEMENT PLAN: Continue medications as current . TIME SPENT: 15 minutes. Vital Signs Vital Signs Date Time Temp Pulse Resp B/P (MAP) Pulse Ox O2 Delivery O2 Flow Rate FiO2 07/31/20 07:09 98.2 91 16 107/63 (78) 98 Room Air Current Medications Current Medications Medications (Trade) Dose Ordered Sig/Neal Route PRN Reason Start Time Stop Time Status Last Admin Dose Admin Acetaminophen (Tylenol Tab) 650 mg Q6HP PRN PO HEADACHE or DISCOMFORT 07/28/20 12:45 07/31/20 12:06 Al Hydrox/Mg Hydrox/Simethicone (Mylanta) 30 ml Q4HP PRN PO HEARTBURN/INDIGESTION 07/28/20 12:45 Cetirizine HCl (ZyrTEC) 10 mg BID PO 07/27/20 09:00 07/28/20 14:39 DC 07/28/20 09:15 Cetirizine HCl (ZyrTEC) 10 mg BID PO 07/28/20 09:00 07/28/20 07:23 DC Cetirizine HCl (ZyrTEC) 10 mg BID PO 07/28/20 21:00 07/31/20 08:35 Docusate Sodium (Colace) 100 mg DAILY PRN PO CONSTIPATION 07/29/20 12:15 Duloxetine HCl (Cymbalta) 30 mg DAILY PO 07/28/20 09:00 07/28/20 07:24 DC Duloxetine HCl (Cymbalta) 60 mg DAILY PO 07/28/20 09:00 07/28/20 07:23 DC Duloxetine HCl (Cymbalta) 90 mg DAILY PO 07/27/20 09:00 07/28/20 14:39 DC 07/28/20 09:13 Duloxetine HCl (Cymbalta) 90 mg DAILY PO 07/29/20 09:00 07/31/20 08:36 Folic Acid (Folic Acid) 1 mg DAILY PO 07/27/20 09:00 07/28/20 14:39 DC 07/28/20 09:15 Folic Acid (Folic Acid) 1 mg DAILY PO 07/28/20 09:00 07/28/20 07:24 DC Folic Acid (Folic Acid) 1 mg DAILY PO 07/29/20 09:00 07/31/20 08:37 Haloperidol (Haldol) 2 mg Q4HP PRN PO anxiety 07/29/20 14:30 07/30/20 16:59 Home Med (Med Rec Complete!) ASDIRECTED XX 07/26/20 16:30 07/26/20 16:23 DC Hydroxyzine HCl (Atarax) 25 mg STAT STAT PO 07/27/20 21:18 07/27/20 21:20 DC 07/27/20 21:24 Hydroxyzine HCl (Atarax) 50 mg BID@0800,1200 PO 07/29/20 12:00 07/31/20 12:06 Ibuprofen (Advil) 600 mg Q6HP PRN PO MODERATE PAIN (PS 5-7) 07/28/20 16:00 07/31/20 07:50 Lactobacillus Acidophilus (Bacid) 1 ea DAILY PO 07/29/20 09:00 07/31/20 08:37 Lorazepam (Ativan) 2 mg STAT STAT IV 07/26/20 05:01 07/26/20 05:02 DC 07/26/20 05:06 Magnesium Hydroxide (Milk Of Magnesia) 30 ml DAILYPRN PRN PO CONSTIPATION 07/28/20 12:45 Miscellaneous (Unresolved Patient Own Med Order) SEE LABEL COMMENTS DAILY XX 07/29/20 09:00 07/29/20 14:10 DC Modafinil (Provigil) 100 mg BID PO 07/27/20 09:00 07/27/20 20:51 DC 07/27/20 09:38 Modafinil (Provigil) 100 mg BID PO 07/28/20 09:00 07/28/20 14:39 DC 07/28/20 12:21 Modafinil (Provigil) 100 mg BID@0800,1200 PO 07/29/20 08:00 07/31/20 12:05 Modafinil (Provigil) 100 mg BID@0900,1300 PO 07/28/20 09:00 07/28/20 07:25 DC Nicotine (Nicoderm Cq 21mg) 1 patch DAILY TD 07/29/20 09:00 07/29/20 12:23 DC Nicotine (Nicoderm Cq 21mg) 1 patch DAILY TD 07/29/20 09:00 07/31/20 08:38 Patient Own Medication (Patient'S Own Med) Glatiramer acetate 20 mg/... QHS SC 07/29/20 21:00 07/30/20 20:05 Pregabalin (Lyrica) 150 mg BID PO 07/27/20 09:00 07/28/20 14:39 DC 07/28/20 09:12 Pregabalin (Lyrica) 150 mg BID PO 07/28/20 09:00 07/28/20 07:24 DC Pregabalin (Lyrica) 150 mg BID PO 07/28/20 21:00 07/31/20 08:37 Tizanidine HCl (Zanaflex) 4 mg TIDP PRN PO MUSCLE SPASMS 07/28/20 14:45 07/30/20 10:42 Trazodone HCl (Desyrel) 50 mg QHSP PRN PO INSOMNIA 07/28/20 12:45 Cancel Trazodone HCl (Desyrel) 100 mg QHS PO 07/28/20 21:00 07/28/20 15:40 DC Trazodone HCl (Desyrel) 100 mg QHSP PRN PO INSOMNIA 07/28/20 15:45 07/30/20 20:05 Vitamin D (Vitamin D) 3,000 units DAILY PO 07/27/20 09:00 07/28/20 14:39 DC 07/28/20 09:15 Vitamin D (Vitamin D) 3,000 units DAILY PO 07/28/20 09:00 07/28/20 07:24 DC Vitamin D (Vitamin D) 3,000 units DAILY PO 07/29/20 09:00 07/28/20 15:40 DC Allergies Coded Allergies: morphine (Verified Allergy, Severe, Anaphylaxis, 11/20/18) VENUS ROSE DO Jul 31, 2020 14:24
[2020-07-31 18:00] VITALS: BP 144/86
[2020-07-31] MEDS: GLATIRAMER ACETATE 20 MG/ML SC SCH (20:04)
[2020-07-31] MEDS: traZODone 100 MG TAB PO PRN (20:04)
[2020-08-01 06:39] VITALS: BP 120/66
[2020-08-01] MEDS: CETIRIZINE (ZyrTEC) 10 MG TAB PO SCH ×2 (08:48→20:11)
[2020-08-01] MEDS: MODAFINIL 100 MG TABLET PO SCH ×2 (08:48→11:48)
[2020-08-01] MEDS: DULoxetine 30 MG CAP (CYMBALTA) PO SCH (08:48)
[2020-08-01] MEDS: hydrOXYzine 50 MG TAB PO SCH ×2 (08:49→11:48)
[2020-08-01] MEDS: LACTOBACILLUS ACIDOPHILUS CAP (BACID) PO SCH (08:49)
[2020-08-01] MEDS: FOLIC ACID 1 MG TAB PO SCH (08:49)
[2020-08-01] MEDS: PREGABALIN 75 MG CAP(LYRICA) PO SCH ×2 (08:49→20:11)
[2020-08-01] MEDS: NICOTINE 21MG/24HR 1 EA TRANSDERMAL TD SCH (08:50)
--- NOTE | 2020-08-01 11:24 | MHIPNPDOC ---
[facility] [address] [facility] Progress Note Progress Note DATE OF SERVICE: 08/01/20 HISTORY: HISTORY: The patient is met with today, she has little to discuss and is becoming more amenable to staying over the weekend. Has little complaint ot her than wanting assurances that she will leave on Monday, she has been demeaning him generally difficult to deal with but has not had any overt behavioral problems. She describes that she does not feel she needs any medications to help her and it appears that her report is that her behavioral problems are chronic and unchanging VITAL SIGNS: See below. NEW TEST RESULTS: None . CURRENT MEDICATIONS: See below. MENTAL STATUS EXAMINATION: General: [Well dressed with good hygiene] Speech: [Spontaneous and fluid] Thought processes: [Linear and logical] Thought content: Guarded and irritated Abstract reasoning, and computation: [Intact] Description of associations: [Intact] Description of abnormal or psychotic thoughts: Threatening Judgment: Poor Insight: Poor Orientation: [Alert and orientated 3] Recent and remote memory: [Intact] Attention span and concentration: [Intact] Fund of knowledge: [Adequate] Mood: ["okay"] Affect: Angry and irritable DIAGNOSES: 1. Adjustment disorder . 2. Alcohol use disorder . 3. Cluster B personality . ASSESSMENT:We will need to observe over the weekend, patient's not interested in medications and thus will not attempt to start new medication since it appears that this is more the result of a cluster B personality MANAGEMENT PLAN: Continue medications as current . TIME SPENT: 15 minutes. Vital Signs Vital Signs Date Time Temp Pulse Resp B/P (MAP) Pulse Ox O2 Delivery O2 Flow Rate FiO2 08/01/20 06:39 98.3 73 18 120/66 (84) 98 Room Air Current Medications Current Medications Medications (Trade) Dose Ordered Sig/Neal Route PRN Reason Start Time Stop Time Status Last Admin Dose Admin Acetaminophen (Tylenol Tab) 650 mg Q6HP PRN PO HEADACHE or DISCOMFORT 07/28/20 12:45 07/31/20 20:03 Al Hydrox/Mg Hydrox/Simethicone (Mylanta) 30 ml Q4HP PRN PO HEARTBURN/INDIGESTION 07/28/20 12:45 Cetirizine HCl (ZyrTEC) 10 mg BID PO 07/27/20 09:00 07/28/20 14:39 DC 07/28/20 09:15 Cetirizine HCl (ZyrTEC) 10 mg BID PO 07/28/20 09:00 07/28/20 07:23 DC Cetirizine HCl (ZyrTEC) 10 mg BID PO 07/28/20 21:00 08/01/20 08:48 Docusate Sodium (Colace) 100 mg DAILY PRN PO CONSTIPATION 07/29/20 12:15 Duloxetine HCl (Cymbalta) 30 mg DAILY PO 07/28/20 09:00 07/28/20 07:24 DC Duloxetine HCl (Cymbalta) 60 mg DAILY PO 07/28/20 09:00 07/28/20 07:23 DC Duloxetine HCl (Cymbalta) 90 mg DAILY PO 07/27/20 09:00 07/28/20 14:39 DC 07/28/20 09:13 Duloxetine HCl (Cymbalta) 90 mg DAILY PO 07/29/20 09:00 08/01/20 08:48 Folic Acid (Folic Acid) 1 mg DAILY PO 07/27/20 09:00 07/28/20 14:39 DC 07/28/20 09:15 Folic Acid (Folic Acid) 1 mg DAILY PO 07/28/20 09:00 07/28/20 07:24 DC Folic Acid (Folic Acid) 1 mg DAILY PO 07/29/20 09:00 08/01/20 08:49 Haloperidol (Haldol) 2 mg Q4HP PRN PO anxiety 07/29/20 14:30 07/31/20 20:03 Home Med (Med Rec Complete!) ASDIRECTED XX 07/26/20 16:30 07/26/20 16:23 DC Hydroxyzine HCl (Atarax) 25 mg STAT STAT PO 07/27/20 21:18 07/27/20 21:20 DC 07/27/20 21:24 Hydroxyzine HCl (Atarax) 50 mg BID@0800,1200 PO 07/29/20 12:00 08/01/20 08:49 Ibuprofen (Advil) 600 mg Q6HP PRN PO MODERATE PAIN (PS 5-7) 07/28/20 16:00 07/31/20 15:32 Lactobacillus Acidophilus (Bacid) 1 ea DAILY PO 07/29/20 09:00 08/01/20 08:49 Lorazepam (Ativan) 2 mg STAT STAT IV 07/26/20 05:01 07/26/20 05:02 DC 07/26/20 05:06 Magnesium Hydroxide (Milk Of Magnesia) 30 ml DAILYPRN PRN PO CONSTIPATION 07/28/20 12:45 Miscellaneous (Unresolved Patient Own Med Order) SEE LABEL COMMENTS DAILY XX 07/29/20 09:00 07/29/20 14:10 DC Modafinil (Provigil) 100 mg BID PO 07/27/20 09:00 07/27/20 20:51 DC 07/27/20 09:38 Modafinil (Provigil) 100 mg BID PO 07/28/20 09:00 07/28/20 14:39 DC 07/28/20 12:21 Modafinil (Provigil) 100 mg BID@0800,1200 PO 07/29/20 08:00 08/01/20 08:48 Modafinil (Provigil) 100 mg BID@0900,1300 PO 07/28/20 09:00 07/28/20 07:25 DC Nicotine (Nicoderm Cq 21mg) 1 patch DAILY TD 07/29/20 09:00 07/29/20 12:23 DC Nicotine (Nicoderm Cq 21mg) 1 patch DAILY TD 07/29/20 09:00 08/01/20 08:50 Patient Own Medication (Patient'S Own Med) Glatiramer acetate 20 mg/... QHS SC 07/29/20 21:00 07/31/20 20:04 Pregabalin (Lyrica) 150 mg BID PO 07/27/20 09:00 07/28/20 14:39 DC 07/28/20 09:12 Pregabalin (Lyrica) 150 mg BID PO 07/28/20 09:00 07/28/20 07:24 DC Pregabalin (Lyrica) 150 mg BID PO 07/28/20 21:00 08/01/20 08:49 Tizanidine HCl (Zanaflex) 4 mg TIDP PRN PO MUSCLE SPASMS 07/28/20 14:45 07/30/20 10:42 Trazodone HCl (Desyrel) 50 mg QHSP PRN PO INSOMNIA 07/28/20 12:45 Cancel Trazodone HCl (Desyrel) 100 mg QHS PO 07/28/20 21:00 07/28/20 15:40 DC Trazodone HCl (Desyrel) 100 mg QHSP PRN PO INSOMNIA 07/28/20 15:45 07/31/20 20:04 Vitamin D (Vitamin D) 3,000 units DAILY PO 07/27/20 09:00 07/28/20 14:39 DC 07/28/20 09:15 Vitamin D (Vitamin D) 3,000 units DAILY PO 07/28/20 09:00 07/28/20 07:24 DC Vitamin D (Vitamin D) 3,000 units DAILY PO 07/29/20 09:00 07/28/20 15:40 DC Allergies Coded Allergies: morphine (Verified Allergy, Severe, Anaphylaxis, 11/20/18) VENUS ROSE DO Aug 01, 2020 11:23
[2020-08-01] MEDS: IBUPROFEN 600MG TAB PO PRN (11:52)
[2020-08-01] MEDS: GLATIRAMER ACETATE 20 MG/ML SC SCH (20:11)
[2020-08-01] MEDS: traZODone 100 MG TAB PO PRN (20:11)
[2020-08-01] MEDS ORDERED: LORazepam 0.5 MG TAB PO ONE (22:30)
[2020-08-02 06:48] VITALS: BP 108/51
[2020-08-02] MEDS: FOLIC ACID 1 MG TAB PO SCH (08:10)
[2020-08-02] MEDS: DULoxetine 30 MG CAP (CYMBALTA) PO SCH (08:10)
[2020-08-02] MEDS: MODAFINIL 100 MG TABLET PO SCH ×2 (08:10→12:36)
[2020-08-02] MEDS: CETIRIZINE (ZyrTEC) 10 MG TAB PO SCH ×2 (08:10→20:14)
[2020-08-02] MEDS: LACTOBACILLUS ACIDOPHILUS CAP (BACID) PO SCH (08:11)
[2020-08-02] MEDS: hydrOXYzine 50 MG TAB PO SCH ×2 (08:11→12:36)
[2020-08-02] MEDS: PREGABALIN 75 MG CAP(LYRICA) PO SCH ×2 (08:11→20:14)
[2020-08-02] MEDS: NICOTINE 21MG/24HR 1 EA TRANSDERMAL TD SCH (08:12)
[2020-08-02] MEDS: IBUPROFEN 600MG TAB PO PRN (12:39)
[2020-08-02] MEDS: ACETAMINOPHEN TAB 650MG DOSE (2X325MG) PO PRN (15:18)
[2020-08-02 18:00] VITALS: BP 145/89
[2020-08-02] MEDS: traZODone 100 MG TAB PO PRN (20:14)
[2020-08-02] MEDS: GLATIRAMER ACETATE 20 MG/ML SC SCH (20:18)
[2020-08-03 06:34] VITALS: BP 104/60
[2020-08-03] MEDS: MODAFINIL 100 MG TABLET PO SCH ×2 (08:04→12:16)
[2020-08-03] MEDS: hydrOXYzine 50 MG TAB PO SCH ×2 (08:04→12:16)
[2020-08-03] MEDS: NICOTINE 21MG/24HR 1 EA TRANSDERMAL TD SCH (08:04)
[2020-08-03] MEDS: DULoxetine 30 MG CAP (CYMBALTA) PO SCH (08:04)
[2020-08-03] MEDS: FOLIC ACID 1 MG TAB PO SCH (08:04)
[2020-08-03] MEDS: CETIRIZINE (ZyrTEC) 10 MG TAB PO SCH (08:05)
[2020-08-03] MEDS: LACTOBACILLUS ACIDOPHILUS CAP (BACID) PO SCH (08:05)
[2020-08-03] MEDS: PREGABALIN 75 MG CAP(LYRICA) PO SCH (08:06)
[2020-08-03] MEDS: IBUPROFEN 600MG TAB PO PRN (08:31)
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
== END 2020-08-03 13:45 | disposition home or self-care (01) | DRG 883 ==
LOC: M ED 03:17 → M ED INP 07-28 12:35 → M PSY 07-28 14:15
PROVIDERS: ADMIT Psychiatry & Neurology Psychiatry; ATTEND Psychiatry & Neurology Addiction Medicine
DX: F60.89 Other specific personality disorders (principal); R45.851 Suicidal ideations; F10.10 Alcohol abuse, uncomplicated; Z79.899 Other long term (current) drug therapy; Z88.5 Allergy status to narcotic agent; F41.9 Anxiety disorder, unspecified; G35 Multiple sclerosis; F17.200 Nicotine dependence, unspecified, uncomplicated; I10 Essential (primary) hypertension

== ENCOUNTER 2020-12-24 19:40 | Emergency (ER) | payer OTHER ==
[~2020-12-24] VITALS: Ht 165.1 cm; Wt 89.7 kg
[2020-12-24 19:40] VITALS: BP 138/93
== END 2020-12-24 21:48 | disposition left against medical advice (07) ==
LOC: M ED 19:40
DX: Z53.21 Procedure and treatment not carried out due to patient leaving prior to being seen by health care provider (principal)

== ENCOUNTER → 2020-12-24 | Outpatient (CLI) | payer OTHER ==
[~2020-12-24] MED LIST changes: +CETI-24 PO; +D31000TA2 PO; +HYDR-4570 PO; +PROBCAP14 PO; +TIZA1TAB12 PO; +TRAZ-257 PO
--- NOTE | 2020-12-25 23:20 | ECWPNPC ---
PATIENT NAME: DEBO GALLEGOS : 1985 GENDER: FEMALE VISIT DATE: 12/24/2020 DISCHARGE DATE: 12/24/20944 VISIT LOCKED DATE TIME: PHYSICIAN: DEVIN PURDY RESOURCE: DEVIN PURDY REASON FOR APPOINTMENT 1. LOW BACK/SI JOINT HISTORY OF PRESENT ILLNESS DEPRESSION SCREENIN-YEAR-OLD FEMALE IN FOR CHRONIC PAIN FOLLOW-UP. PATIENT HAS A HISTORY OF LOW BACK AND SACROILIAC JOINT PAIN. PATIENT HAD A SIMILAR JOINT BLOCK PREVIOUSLY WITH GOOD RESULTS EVIDENCED BY DECREASED PAIN AND INCREASED FUNCTIONALITY. SHE REPORTS INCREASED PAIN TODAY AND WE WILL DISCUSS REPEAT PROCEDURES. PHQ-2 (2015 EDITION) LITTLE INTEREST OR PLEASURE IN DOING THINGS?NOT AT ALL FEELING DOWN, DEPRESSED, OR HOPELESS?NOT AT ALL TOTAL SCORE0 GENERAL: -. FALL RISK SCREENING: SCREENING : NO FALLS REPORTED IN THE LAST YEAR. PAIN SCREENING: PATIENT HAS A COMPLAINT OF ACUTE OR CHRONIC PAIN :YES LOCATION OF PAIN:LOW BACK, LEFT HIP, RIGHT HIP INTENSITY OF PAIN (SCALE OF 1 TO 10):10 WHAT DOES YOUR PAIN FEEL LIKE:ACHING, CONTINOUS, SHARP, STABBING, THROBBING DURATION:CONTINOUS, CONSTANT, AWAKENS FROM SLEEP PAIN IS INCREASED BY:ACTIVITIES, PROLONGED STANDING PAIN IS DECREASED BY:USE OF PAIN MEDICATIONS, SITTING NURSING NOTE: -. PAIN CENTER INTAKE QUESTIONS: DO YOU HAVE A HISTORY OF MRSA? :NO DO YOU TAKE A BLOOD THINNERS? :NO DO YOU HAVE ANY BLEEDING DISORDERS? :NO ANY NEW NUMBNESS OR WEAKNESS IN YOUR LEGS OR ARMS? :NO ANY PACEMAKER,DEFIBRILLATOR, OR DORSAL COLUMN STIMULATOR? :NO DO YOU HAVE ANY RASHES OR OPEN SORES? :NO ARE YOU ALLERGIC TO IV DYE? :NO ARE YOU DIABETIC? :NO ANY NEW PROBLEMS WITH YOUR MEDICATIONS? :NO HAVE YOU RECEIVED A VACCINE IN THE PAST 30 DAYS? :NO DO YOU PLAN TO RECEIVE A VACCINE IN THE NEXT 21 DAYS? :NO DO YOU NEED ANY PRESCRIPTION? :NO DO YOU TAKE ANY IMMUNOSUPPRESSIVE MEDICATIONS? :YES COPAXONE IS THERE A CHANCE YOU COULD BE ? :NO ARE YOU BREAST FEEDING? :NO CURRENT MEDICATIONS TAKING ZYRTEC 10 MG TABLET 1 CAP ORALLY DAILY, NOTES: 02/04 6AM TAKING DULOXETINE HCL 60 MG CAPSULE DELAYED RELEASE PARTICLES 1 CAPSULE ORALLY ONCE A DAY, NOTES: 70MG 02/04 6A TAKING PROVIGIL 100 MG TABLET 1 TABLET IN THE MORNING ORALLY BID, NOTES: 02/04 6A TAKING LYRICA 150 MG CAPSULE 1 CAPSULE ORALLY BID, NOTES: 02/04 6A TAKING FOLIC ACID 1 MG TABLET 1 TABLET ORALLY ONCE A DAY, NOTES: 02/04 6A TAKING VITAMIN D 1000 UNIT TABLET 1 TABLET ORALLY ONCE A DAY, NOTES: 5000 02/04 6A TAKING TRAZODONE HCL 50 MG TABLET 1 TABLET AT BEDTIME NEEDED ORALLY ONCE A DAY, NOTES: 02/03 8P TAKING COPAXONE 20 MG/ML SOLUTION PREFILLED SYRINGE 1 ML SUBCUTANEOUS ONCE A DAY, NOTES: 02/02 9P TAKING DALFAMPRIDINE ER 10 MG TABLET EXTENDED RELEASE 12 HOUR 1 TABLET ORALLY TWICE A DAY, NOTES: 02/04 6A TAKING MECLIZINE HCL 25 MG TABLET CHEWABLE 1 TABLET NEEDED ORALLY ONCE A DAY, NOTES: NEEDED 2 DAYS TAKING TIZANIDINE HCL 4 MG TABLET 1 TABLET NEEDED ORALLY THREE TIMES A DAY, NOTES: 2 DAYS TAKING HYDROXYZINE HCL 25 MG TABLET 1 TAB ORALLY EVERY 6 HRS NEEDED, NOTES: 2 DAYS TAKING DOCUSATE SODIUM 100 MG CAPSULE 1 CAPSULE NEEDED ORALLY ONCE A DAY, NOTES: 1 WEEK TAKING METHENAMINE HIPPURATE 1 GM TABLET 1 TABLET ORALLY TWICE A DAY, NOTES: 02/04 6A TAKING FLOMAX 0.4 MG CAPSULE 1 CAPSULE ORALLY ONCE A DAY TAKING ABILIFY 10 MG TABLET 1 TABLET ORALLY ONCE A DAY, NOTES: DOSE UNKNOWN NOT-TAKING FLOMAX 0.4 MG CAPSULE 1 CAPSULE ORALLY ONCE A DAY NOT-TAKING NITROFURANTOIN MONOHYD MACRO 100 MG CAPSULE 1 CAPSULE WITH FOOD ORALLY EVERY 12 HRS NOT-TAKING PHENAZOPYRIDINE HCL 100 MG TABLET 2 TABLETS AFTER MEALS ORALLY THREE TIMES A DAY NOT-TAKING SYNTHROID 25 MCG TABLET 1 TABLET ON AN EMPTY STOMACH IN THE MORNING ORALLY ONCE A DAY NOT-TAKING BACTRIM DS 800-160 MG TABLET 1 TABLET 1 HOUR PRIOR TO YOUR CYSTOSCOPY ORALLY ONCE NOT-TAKING DIFLUCAN 100 MG TABLET 1 TABLET 1 HOUR PRIOR TO YOUR CYSTOSCOPY ORALLY ONCE NOT-TAKING FLUCONAZOLE 150 MG TABLET DIRECTED ORALLY NOT-TAKING BACLOFEN 10 MG/20ML SOLUTION DIRECTED INTRATHECAL MEDICATION LIST REVIEWED AND RECONCILED WITH THE PATIENT PAST MEDICAL HISTORY UTI MS HYPOTHYROIDISM BELLS PALSY CHRONIC BACK PAIN ALLERGIES MORPHINE SULFATE (PF): HIVES LATEX (FOR ALLERGY USE ONLY): SENSITIVITY SOCIAL HISTORY GENERAL: TOBACCO USE ARE YOU A:CURRENT SMOKER ARE YOU INTERESTED IN QUITTING?NOT READY TO QUIT COUNSELED THE PATIENT ON SMOKING EFFECTS, EDUCATION [id number] HOW MANY CIGARETTES A DAY DO YOU SMOKE?6-10 HOW SOON AFTER YOU WAKE UP DO YOU SMOKE YOUR FIRST CIGARETTE?6-30 MIN HOW OFTEN DO YOU SMOKE CIGARETTES?EVERY DAY PATIENT COUNSELED ON THE DANGERS OF TOBACCO USE AND URGED TO QUIT:02/04/2020 SMOKING CESSATION INFORMATION GIVEN01/21/2020 LATEX QUESTIONNAIRE LATEX ALLERGY : HAVE YOU EVER DEVELOPED ANY TYPE OF REACTION AFTER HANDLING LATEX PRODUCTS SUCH RUBBER GLOVES, CONDOMS, DIAPHRAGMS, BALLOONS, SOCKS, OR UNDERWEAR?NO LATEX ALLERGY : HAVE YOU EVER DEVELOPED ANY TYPE OF REACTION DURING OR AFTER DENTAL APPOINTMENT, VAGINAL/RECTAL EXAMINATION, SURGICAL PROCEDURE, OR ANY OTHER EXPOSURE?NO LATEX RISK : HAVE YOU EVER HAD ANY DIFFICULTY BREATHING OR HIVES AFTER EATING OR HANDLING ANY FRUITS, OR VEGETABLES; SUCH KIWI, BANANAS, STONE FRUITS, OR CHESTNUTSNO LATEX RISK : DO YOU HAVE A PREVIOUS PERSONAL HISTORY OF MORE THAN NINE SURGERIES, SPINA BIFIDA, OR REPEATED CATHERIZATIONS? NO LATEX RISK : ARE YOU FREQUENTLY EXPOSED TO LATEX PRODUCTS IN YOUR OCCUPATION?NO DATE ASKED : 12/24/2020 ALCOHOL USE: NO. ALCOHOL SCREENING DID YOU HAVE A DRINK CONTAINING ALCOHOL IN THE PAST YEAR?YES HOW OFTEN DID YOU HAVE SIX OR MORE DRINKS ON ONE OCCASION IN THE PAST YEAR?NEVER (0 POINTS) HOW MANY DRINKS DID YOU HAVE ON A TYPICAL DAY WHEN YOU WERE DRINKING IN THE PAST YEAR?1 OR 2 (0 POINTS) HOW OFTEN DID YOU HAVE A DRINK CONTAINING ALCOHOL IN THE PAST YEAR?MONTHLY OR LESS (1 POINT) POINTS1 INTERPRETATIONNEGATIVE RECREATIONAL DRUG USE DRUG USE?NO MEDICINAL MARIJUANA CAFFEINE CAFFEINE USE?YES SODA,TEA, SOMETIMES COFFEE SEXUAL HX HAD SEX IN THE LAST 12 MONTHS (VAGINAL, ORAL, OR ANAL)?YES WITHMEN ONLY PREVENTION STRATEGIES DISCUSSED:OTHER USE PROTECTION?NO HAVE YOU EVER HAD AN STD?NO CHRISTIAN CHRISTIAN NO MU-ISM BELIEFS THAT WOULD IMPACT HEALTH CARE. LANGUAGE LANGUAGES SPOKEN:SYRIAC EDUCATION LEVEL OF EDUCATION:HIGH SCHOOL LEARNING BARRIERS / SPECIAL NEEDS BARRIERS TO LEARNING?NO HEARING IMPAIRED?NO VISION IMPAIRED?YES CONTACTS COGNITIVELY IMPAIRED?NO READINESS TO LEARN?YES LEARNING PREFERENCES?YES :TAPES/VIDEOS, BOOKLETS, HANDOUTS VISUAL LEARNING CAPABILITIES PRESENT?YES EMOTIONAL BARRIERS?NO SPECIAL DEVICES?NO REPAIRER HANDTOOLS NEEDED?NO DOMESTIC VIOLENCE STATUS: DO YOU FEEL SAFE IN YOUR ENVIRONMENT?YES OCCUPATION: RETAIL. DIET: REGULAR. EXERCISE: NO REGULAR EXERCISE. MARITAL STATUS: . OTHERS AT HOME: SPOUSE. - PFS REFERRAL NEEDED?NO CLERGY REFERRAL NEEDED?NO PUBLIC HEALTH REFERRAL NEEDED?NO WAS THE PROVIDER NOTIFIED OF ANY PERTINENT INFO?YES HAS THE PATIENT BEEN EDUCATED REGARDING HIS/HER PLAN OF CARE?YES HAS THE PATIENT BEEN EDUCATED REGARDING PAIN, THE RISK FOR PAIN, THE IMPORTANCE OF EFFECTIVE PAIN MANAGEMENT, AND THE PAIN ASSESSMENT PROCESS?YES HOUSING: OWNS HOME. ADVANCE DIRECTIVE ADVANCE DIRECTIVE DISCUSSED WITH PATIENT:YES HCP - SOL () REVIEW OF SYSTEMS CONSTITUTIONAL: ANY RECENT FEVER NO . CHILLS NO . WEIGHT CHANGE OF UNKNOWN REASONS NO . GASTROENTEROLOGY: NEW UNEXPLAINABLE CHANGES IN BOWEL CONTROL NO . CONSTIPATION NO . GENITOURINARY: ANY NEW CHANGE IN BLADDER CONTROL? NO . NEUROLOGY: NEW ONSET DIZZINESS OR NEUROLOGICAL CHANGES NOT MENTIONED NO . NEW NUMBNESS OR PAIN PATTERNS NOT MENTIONED AND PERTINENT TO TODAY'S VISIT NO . CARDIOLOGY: NEW CHEST PRESSURE NO . PATIENT DENIES NO . RESPIRATORY: UNEXPLAINABLE COUGH NO . NEW SHORTNESS OF BREATH NO . VITAL SIGNS WT 195 LBS, HT 70 IN, BMI 27.98 INDEX, BP 129/80 MM HG, HR 92 /MIN, RR 18 /MIN, TEMP 98.2 F, OXYGEN SAT % 98%, SAFE IN ENV? (Y/N) YES, NA INITIALS , REVIEWED BY: TAMY MILNER MA. EXAMINATION GENERAL EXAMINATION: GENERALNO ACUTE DISTRESS, WELL NOURISHED AND HYDRATED. PSYCHAPPROPRIATE MOOD AND AFFECT . LUNGS:CLEAR TO AUSCULTATION BILATERALLY, NO WHEEZES, RHONCHI, RALES. HEART:NO MURMURS, REGULAR RATE AND RHYTHM. BACK:POINT TENDER BILATERAL SIJ, POSITIVE WILBER'S TEST BILATERALLY. ASSESSMENTS OTHER CHRONIC PAIN - G89.29 (PRIMARY) SACROILIITIS, NOT ELSEWHERE CLASSIFIED - M46.1 (PRIMARY) TREATMENT OTHER CHRONIC PAIN PAIN PROCEDURE LOGDATE OF PROCEDURE02/05/2020PROCEDURE:BILATERAL SACROILIAC JOINT BLOCKAMOUNT OF PRE SEDATEBENADRYL 25 MG, VALIUM 5 MG. HYDROCODONE/ACETAMINOPHEN 5/325 MG 2 TABLETSRESULT:SUCCESSFUL DECREASED PAIN UP UNTIL RECENTLY CLINICAL NOTES: PREPROCEDURE AND PROCEDURE INFORMATION PRINTED AND PROVIDED TO PATIENT. PATIENT VERBALIZED AN UNDERSTANDING. MED HOLD REQUEST FAXED TO DR. LUNA FOR CAPAXONE. RAMOS MILNER MA. SACROILIITIS, NOT ELSEWHERE CLASSIFIED MEDICATION: VALIUM TAB 5MG ORALLY (DIAZEPAM) (ORDERED FOR 01/01/2021) MEDICATION: NORCO TABLET 5MG/325MG ORALLY (HYDROCODONE/ACETAMINOPHEN) (ORDERED FOR 01/01/2021) CLINICAL NOTES: 34-YEAR-OLD FEMALE IN FOR CHRONIC PAIN FOLLOW-UP. GIVEN PRESENTING SYMPTOMS AND RESULTS OF PHYSICAL EXAMINATION RECOMMENDED SACROILIAC JOINT BLOCK WITH POST PROCEDURAL FOLLOW-UP. PATIENT HAS EXPRESSED UNDERSTANDING OF AND WAS IN AGREEMENT WITH TREATMENT PLAN. GIVEN TIME TO ASK QUESTIONS AND EXPRESS CONCERNS. PROCEDURE CODES FA211 ESTABILISHED PATIENT [facility] CHARGE DISPOSITION & COMMUNICATION FOLLOW UP POST PROCEDURE (REASON: BILATERAL SACROILLIAC JOINT BLOCK) ELECTRONICALLY SIGNED BY JESUS BARFIELD ON 12/25/2020 AT 09:38 AM EDT DISCLAIMER : THIS IS A VISIT SUMMARY EXTRACTED FROM THE [employer] CHART. IT IS NOT A COPY OF THE [employer] PROGRESS NOTE. YANCI
== END ==
LOC: M PAIN 09:15
PROVIDERS: ATTEND Family Medicine
DX: M46.1 Sacroiliitis, not elsewhere classified (principal); G89.29 Other chronic pain; G35 Multiple sclerosis; F17.210 Nicotine dependence, cigarettes, uncomplicated; Z88.5 Allergy status to narcotic agent; Z91.040 Latex allergy status; Z79.899 Other long term (current) drug therapy

== ENCOUNTER → 2021-02-13 | Outpatient (CLI) | payer OTHER | LOC: M LABSMTC 09:20 | PROVIDERS: ATTEND Anesthesiology | DX: Z11.52 Encounter for screening for COVID-19 (principal) ==

== ENCOUNTER → 2021-02-18 | Outpatient (CLI) | payer OTHER ==
[~2021-02-18] MED LIST changes: +BUPIVACAINE HCL 0.25% 30ML VIAL As Ordered ONE; +ISOVUE-M 300 61% 15ML VIAL As Ordered ONE; +LIDOCAINE 1% SDV 30ML VIAL As Ordered ONE; +NORCO, ANEXSIA 5/325MG TABLET (HYDROcodone/ACETAMINOPHEN) As Ordered ONE; +TRIAMCINOLONE ACETONIDE SUSP 40 MG/ML VIAL (J3301) As Ordered ONE; +diazePAM 5MG TABLET As Ordered ONE; +diphenhydrAMINE 25MG CAP As Ordered ONE
--- NOTE | 2021-02-18 13:14 | REP ---
INDICATION: BILAT SIJ. COMPARISON: 02/05/2020. TECHNIQUE: For C-arm views sacroiliac joints bilaterally. FINDINGS: A needle overlies each sacroiliac joint. IMPRESSION: 33 seconds fluoroscopy time utilized. <Electronically signed by Sammy Thao > 02/18/21 0470
--- NOTE | 2021-02-20 01:43 | ECWPNPC ---
PATIENT NAME: DEBO GALLEGOS : 1985 GENDER: FEMALE VISIT DATE: 02/18/2021 DISCHARGE DATE: 02/18/21 1222 VISIT LOCKED DATE TIME: PHYSICIAN: BERNARD XIONG MD RESOURCE: BERNARD XIONG MD REASON FOR APPOINTMENT 1. BILATERAL SACROILIAC JOINT BLOCK HISTORY OF PRESENT ILLNESS GENERAL: -. FALL RISK SCREENING: SCREENING : 3 FALLS REPORTED IN THE LAST YEAR, MOST RECENT FALL WITHOUT INJURY.. PAIN SCREENING: PATIENT HAS A COMPLAINT OF ACUTE OR CHRONIC PAIN :YES LOCATION OF PAIN:LOW BACK, LEFT HIP, RIGHT HIP INTENSITY OF PAIN (SCALE OF 1 TO 10):10 WHAT DOES YOUR PAIN FEEL LIKE:ACHING, INTERMITTENT, STABBING, THROBBING DURATION:INTERMITTENT, AWAKENS FROM SLEEP PAIN IS INCREASED BY:ACTIVITIES, PROLONGED STANDING PAIN IS DECREASED BY:USE OF PAIN MEDICATIONS, SITTING PLAN/GOALS/TREATMENT/INTERVENTION/FOLLOW UP:SEE PLAN NURSING NOTE: -. PAIN CENTER INTAKE QUESTIONS: DO YOU HAVE A HISTORY OF MRSA? :NO DO YOU TAKE A BLOOD THINNERS? :NO DO YOU HAVE ANY BLEEDING DISORDERS? :NO ANY NEW NUMBNESS OR WEAKNESS IN YOUR LEGS OR ARMS? :NO ANY PACEMAKER,DEFIBRILLATOR, OR DORSAL COLUMN STIMULATOR? :NO DO YOU HAVE ANY RASHES OR OPEN SORES? :NO ARE YOU ALLERGIC TO IV DYE? :NO ARE YOU DIABETIC? :NO HAVE YOU RECEIVED A VACCINE IN THE PAST 30 DAYS? :NO DO YOU PLAN TO RECEIVE A VACCINE IN THE NEXT 21 DAYS? :NO DO YOU NEED ANY PRESCRIPTION? :NO DO YOU TAKE ANY IMMUNOSUPPRESSIVE MEDICATIONS? :YES COPAXONE (LD: 02/15/21) ANY HISTORY OF SEIZURES? :NO ANY HISTORY OF CARDIAC ISSUES OR EVENTS? :NO DO YOU HAVE ANY KIDNEY OR LIVER DISEASE? :NO DO YOU HAVE SLEEP APNEA? :NO ANY RECENT HEAD INJURY? :NO DO YOU HAVE ANY NEW INFECTIONS? :NO IS THERE A CHANCE YOU COULD BE ? :NO ARE YOU BREAST FEEDING? :NO WHEN DID YOU LAST EAT? : 02/16/21 WHEN DID YOU LAST DRINK? : 02/17/21 0800 WHAT DID YOU LAST DRINK? : SPRITE NAME OF PERSON DRIVING YOU HOME? : BF DO YOU HAVE ANY OTHER QUESTIONS OR CONCERNS? : NO CURRENT MEDICATIONS TAKING ZYRTEC 10 MG TABLET 1 CAP ORALLY DAILY TAKING DULOXETINE HCL 60 MG CAPSULE DELAYED RELEASE PARTICLES 1 CAPSULE ORALLY ONCE A DAY TAKING PROVIGIL 100 MG TABLET 1 TABLET IN THE MORNING ORALLY BID TAKING LYRICA 150 MG CAPSULE 1 CAPSULE ORALLY BID, NOTES: 02/15/21 TAKING FOLIC ACID 1 MG TABLET 1 TABLET ORALLY ONCE A DAY TAKING VITAMIN D 1000 UNIT TABLET 1 TABLET ORALLY ONCE A DAY TAKING TRAZODONE HCL 50 MG TABLET 1 TABLET AT BEDTIME NEEDED ORALLY ONCE A DAY, NOTES: 02/16/21 TAKING COPAXONE 20 MG/ML SOLUTION PREFILLED SYRINGE 1 ML SUBCUTANEOUS ONCE A DAY, NOTES: 02/14/21 TAKING DALFAMPRIDINE ER 10 MG TABLET EXTENDED RELEASE 12 HOUR 1 TABLET ORALLY TWICE A DAY TAKING MECLIZINE HCL 25 MG TABLET CHEWABLE 1 TABLET NEEDED ORALLY ONCE A DAY TAKING TIZANIDINE HCL 4 MG TABLET 1 TABLET NEEDED ORALLY THREE TIMES A DAY, NOTES: NONE LATELY TAKING HYDROXYZINE HCL 25 MG TABLET 1 TAB ORALLY EVERY 6 HRS NEEDED TAKING DOCUSATE SODIUM 100 MG CAPSULE 1 CAPSULE NEEDED ORALLY ONCE A DAY TAKING METHENAMINE HIPPURATE 1 GM TABLET 1 TABLET ORALLY TWICE A DAY TAKING FLOMAX 0.4 MG CAPSULE 1 CAPSULE ORALLY ONCE A DAY TAKING ABILIFY 10 MG TABLET 1 TABLET ORALLY ONCE A DAY NOT-TAKING FLOMAX 0.4 MG CAPSULE 1 CAPSULE ORALLY ONCE A DAY NOT-TAKING NITROFURANTOIN MONOHYD MACRO 100 MG CAPSULE 1 CAPSULE WITH FOOD ORALLY EVERY 12 HRS NOT-TAKING PHENAZOPYRIDINE HCL 100 MG TABLET 2 TABLETS AFTER MEALS ORALLY THREE TIMES A DAY NOT-TAKING SYNTHROID 25 MCG TABLET 1 TABLET ON AN EMPTY STOMACH IN THE MORNING ORALLY ONCE A DAY NOT-TAKING BACTRIM DS 800-160 MG TABLET 1 TABLET 1 HOUR PRIOR TO YOUR CYSTOSCOPY ORALLY ONCE NOT-TAKING DIFLUCAN 100 MG TABLET 1 TABLET 1 HOUR PRIOR TO YOUR CYSTOSCOPY ORALLY ONCE NOT-TAKING FLUCONAZOLE 150 MG TABLET DIRECTED ORALLY NOT-TAKING BACLOFEN 10 MG/20ML SOLUTION DIRECTED INTRATHECAL MEDICATION LIST REVIEWED AND RECONCILED WITH THE PATIENT PAST MEDICAL HISTORY UTI MS HYPOTHYROIDISM BELLS PALSY CHRONIC BACK PAIN ALLERGIES MORPHINE SULFATE (PF): HIVES LATEX (FOR ALLERGY USE ONLY): SENSITIVITY SOCIAL HISTORY GENERAL: TOBACCO USE ARE YOU A:CURRENT SMOKER ARE YOU INTERESTED IN QUITTING?NOT READY TO QUIT COUNSELED THE PATIENT ON SMOKING EFFECTS, EDUCATION [id number]/07/2021 HOW MANY CIGARETTES A DAY DO YOU SMOKE?6-10 HOW SOON AFTER YOU WAKE UP DO YOU SMOKE YOUR FIRST CIGARETTE?6-30 MIN HOW OFTEN DO YOU SMOKE CIGARETTES?EVERY DAY PATIENT COUNSELED ON THE DANGERS OF TOBACCO USE AND URGED TO QUIT:02/04/2020 SMOKING CESSATION INFORMATION GIVEN01/21/2020 VAPORNO E-CIGARETTENO LATEX QUESTIONNAIRE LATEX ALLERGY : HAVE YOU EVER DEVELOPED ANY TYPE OF REACTION AFTER HANDLING LATEX PRODUCTS SUCH RUBBER GLOVES, CONDOMS, DIAPHRAGMS, BALLOONS, SOCKS, OR UNDERWEAR?NO LATEX ALLERGY : HAVE YOU EVER DEVELOPED ANY TYPE OF REACTION DURING OR AFTER DENTAL APPOINTMENT, VAGINAL/RECTAL EXAMINATION, SURGICAL PROCEDURE, OR ANY OTHER EXPOSURE?NO DATE ASKED : 12/24/2020 LATEX RISK : HAVE YOU EVER HAD ANY DIFFICULTY BREATHING OR HIVES AFTER EATING OR HANDLING ANY FRUITS, OR VEGETABLES; SUCH KIWI, BANANAS, STONE FRUITS, OR CHESTNUTSNO LATEX RISK : DO YOU HAVE A PREVIOUS PERSONAL HISTORY OF MORE THAN NINE SURGERIES, SPINA BIFIDA, OR REPEATED CATHERIZATIONS? NO LATEX RISK : ARE YOU FREQUENTLY EXPOSED TO LATEX PRODUCTS IN YOUR OCCUPATION?NO ALCOHOL USE: NO. ALCOHOL SCREENING DID YOU HAVE A DRINK CONTAINING ALCOHOL IN THE PAST YEAR?YES HOW OFTEN DID YOU HAVE SIX OR MORE DRINKS ON ONE OCCASION IN THE PAST YEAR?NEVER (0 POINTS) HOW MANY DRINKS DID YOU HAVE ON A TYPICAL DAY WHEN YOU WERE DRINKING IN THE PAST YEAR?1 OR 2 (0 POINTS) HOW OFTEN DID YOU HAVE A DRINK CONTAINING ALCOHOL IN THE PAST YEAR?MONTHLY OR LESS (1 POINT) POINTS1 INTERPRETATIONNEGATIVE RECREATIONAL DRUG USE DRUG USE?NO MEDICINAL MARIJUANA CAFFEINE CAFFEINE USE?YES SODA,TEA, SOMETIMES COFFEE SEXUAL HX HAD SEX IN THE LAST 12 MONTHS (VAGINAL, ORAL, OR ANAL)?YES WITHMEN ONLY PREVENTION STRATEGIES DISCUSSED:OTHER USE PROTECTION?NO HAVE YOU EVER HAD AN STD?NO CONFUCIANIST CONFUCIANIST NO ANABAPTISM BELIEFS THAT WOULD IMPACT HEALTH CARE. LANGUAGE LANGUAGES SPOKEN:THAI EDUCATION LEVEL OF EDUCATION:HIGH SCHOOL LEARNING BARRIERS / SPECIAL NEEDS BARRIERS TO LEARNING?NO HEARING IMPAIRED?NO VISION IMPAIRED?YES CONTACTS COGNITIVELY IMPAIRED?NO READINESS TO LEARN?YES LEARNING PREFERENCES?YES :TAPES/VIDEOS, BOOKLETS, HANDOUTS VISUAL LEARNING CAPABILITIES PRESENT?YES EMOTIONAL BARRIERS?NO SPECIAL DEVICES?NO BICYCLE DESIGNER NEEDED?NO DOMESTIC VIOLENCE STATUS: DO YOU FEEL SAFE IN YOUR ENVIRONMENT?YES OCCUPATION: RETAIL. DIET: REGULAR. EXERCISE: NO REGULAR EXERCISE. MARITAL STATUS: . OTHERS AT HOME: SPOUSE. - PFS REFERRAL NEEDED?NO CLERGY REFERRAL NEEDED?NO PUBLIC HEALTH REFERRAL NEEDED?NO WAS THE PROVIDER NOTIFIED OF ANY PERTINENT INFO?YES HAS THE PATIENT BEEN EDUCATED REGARDING HIS/HER PLAN OF CARE?YES HAS THE PATIENT BEEN EDUCATED REGARDING PAIN, THE RISK FOR PAIN, THE IMPORTANCE OF EFFECTIVE PAIN MANAGEMENT, AND THE PAIN ASSESSMENT PROCESS?YES HOUSING: OWNS HOME. ADVANCE DIRECTIVE ADVANCE DIRECTIVE DISCUSSED WITH PATIENT:YES HCP - SOL () VITAL SIGNS WT 195.4 LBS, HT 70 IN, BMI 28.03 INDEX, BP 147/92 MM HG, HR 96 /MIN, RR 18 /MIN, TEMP 97.0 F, OXYGEN SAT % 99%, SAFE IN ENV? (Y/N) Y, NA INITIALS SC 10:37, REVIEWED BY: EM. EXAMINATION GENERAL: THE PATIENT IS ALERT, ORIENTED TIMES THREE AND COOPERATIVE. LUNGS ARE CLEAR TO AUSCULTATION. HEART SHOWS REGULAR RHYTHM, NO MURMURS AND NO GALLOPS. ASSESSMENTS SACROILIITIS, NOT ELSEWHERE CLASSIFIED - M46.1 (PRIMARY) TREATMENT SACROILIITIS, NOT ELSEWHERE CLASSIFIED [facility] FLUORO GUIDANCE (PAIN)[id number] COMPLETION OF PROCEDURAL VISIT WHEN MEETS CRITERIATRISTAN LOPEZ 02/18/2021 12:22:31 PM > CRITERIA MET MED: PAIN BENADRYL TAB 25MG ORALLY DIPHENHYDRAMINERAE LEON 02/18/2021 11:46:24 AM > VERIFIED TRISTAN LOPEZ 02/18/2021 11:47:43 AM > ADMINISTERED MEDICATION: NORCO TABLET 5MG/325MG ORALLY (HYDROCODONE/ACETAMINOPHEN)RAE LEON 02/18/2021 11:46:47 AM > VERIFIED TRISTAN LOPEZ 02/18/2021 11:47:57 AM > ADMINISTERED MEDICATION: PAIN VALIUM TAB 5MG ORALLY (DIAZEPAM)RAE LEON 02/18/2021 11:47:07 AM > VERIFIED TRISTAN LOPEZ 02/18/2021 11:48:09 AM > ADMINISTERED OTHERS NOTES: 02/17/21 1600 PAT ANNABEL MARQUEZ, PIANO CASE AND BENCH ASSEMBLER. PROCEDURES PAIN NURSING RECORD PROCEDURE IN ROOM 1149, PHYSICIAN IN ROOM 1151, START 1156, FINISH 1202, PHYSICIAN OUT OF ROOM 1203, OUT OF ROOM 1210, ECG NORMAL SINUS, PATIENT SHIELDED YES, SAFETY STRAP YES, PREP CHLOROPREP Shantel LOPEZ RN, DRESSING TEGADERM DR. XIONG LOC: 1. ALERT, ORIENTED, TRISTAN LOPEZ 02/18/2021 11:58:05 AM > RESP: 1. REGULAR, NO DYSPNEA, TRISTAN LOPEZ 02/18/2021 11:58:09 AM > COLOR: 1. PINK, RYAN LOPEZBETH 02/18/2021 11:58:12 AM > SKIN: 1. WARM, DRY, RYAN LOPEZBETH 02/18/2021 11:58:15 AM > POSITION: 1. PRONE, RYAN LOPEZBETH 02/18/2021 11:58:19 AM > VITALS: 135/92, 86, 16, 100%, JESSICATRISTAN 02/18/2021 11:50:36 AM > 137/79, 91, 16, 100%, JESSICATRISTAN DORSEY 02/18/2021 12:00:31 PM > 143/97, 83, 16, 100%, JESSICATRISTAN 02/18/2021 12:17:57 PM > NOTES Shantel LOPEZ RN, JESSICARAZA DORSEYTH 02/18/2021 11:58:40 AM > COMPLETION OF PROCEDURE APPOINTMENT: POST PAIN 0, DRESSING SITE DRY AND INTACT, IV N/A, GAIT STEADY, TEACHING COMPLETED, PATIENT ACKNOWLEDGES UNDERSTANDING YES, PROCEDURE APPOINTMENT COMPLETED AT 1222 PN SI PRE PROCEDURE DIAGNOSIS SACROILIITIS, SACROILIAC JOINT DYSFUNCTION POST PROCEDURE DIAGNOSIS SACROILIITIS, SACROILIAC JOINT DYSFUNCTION PROCEDURE BILATERAL SACROILIAC JOINT BLOCK SURGEON DR. BERNARD XIONG FOOTWEAR SALES REPRESENTATIVE NONE ANESTHESIA LOCAL PRE PROCEDURE NOTE THE PATIENT WITH HISTORY OF CHRONIC LOW BACK PAIN. I EVALUATED THE PATIENT AND REVIEWED THE CHART. I WENT OVER THE RISKS, ALTERNATIVES, AND BENEFITS ASSOCIATED WITH THIS PROCEDURE. THE PATIENT WOULD LIKE TO PROCEED AND GAVE CONSENT TO PERFORM THE PROCEDURE. THE PATIENT DENIES UNEXPLAINABLE WEIGHT LOSS, FEVER, CHILLS, OR NEW CHANGES IN URINARY OR BOWEL CONTROL. THE PATIENT IS COVID-19 NEGATIVE DESCRIPTION OF PROCEDURE THE PATIENT WAS BROUGHT TO THE PROCEDURE ROOM AND PLACED IN THE PRONE POSITION. THE LUMBOSACRAL AREA WAS CLEANED WITH CHLORAPREP SOLUTION AND DRAPED ASEPTICALLY. THE PROCEDURE WAS DONE UNDER STERILE CONDITIONS. A TIMEOUT WAS PERFORMED WHERE THE CONSENTED SITE WAS VERIFIED WITH EVERYONE IN THE ROOM. UNDER FLUOROSCOPIC GUIDANCE, THE TARGET POINT WAS SELECTED AT THE LOWER BORDER OF THE RIGHT AND LEFT SACROILIAC JOINT. TARGET POINT WAS SELECTED AFTER MEDIAL ROTATION AND TILT OF THE MAGNIFIER OR THE C-ARM. I CONFIRMED AGAIN THE SITE OF TARGET. LIDOCAINE 0.5% WAS USED TO NUMB THE SKIN AND THE SUBCUTANEOUS TISSUE BELOW IT. SPINAL NEEDLES, 22-GAUGE, WERE ADVANCED UNDER FLUOROSCOPIC GUIDANCE AND FOLLOWING PATIENT FEEDBACK UNTIL THE TARGETS WERE TOUCHED. THE POSITION OF THE NEEDLES WAS VERIFIED WITH AP AND OBLIQUE VIEWS. AFTER PROPER POSITION OF THE NEEDLES WAS ACHIEVED, ISOVUE-M DYE 30%, 0.1 ML, WAS INJECTED SHOWING ADEQUATE SPREAD OF THE DYE. KENALOG 40 MG WAS INJECTED AT EACH SITE. THEN, A SOLUTION OF 3.0 ML OF BUPIVACAINE 0.125% WAS USED TO FLUSH EACH NEEDLE. THE MEDICATIONS WERE VERIFIED WITH THE NURSE. THERE WAS NO EVIDENCE OF BLOOD, PARESTHESIA OR CEREBROSPINAL FLUID DURING THE PROCEDURE. THE PATIENT WAS SENT TO THE RECOVERY ROOM. THE PATIENT WAS MOVING THE EXTREMITIES AND DOING WELL. THERE WERE NO COMPLICATIONS DURING THE PROCEDURE. ESTIMATED BLOOD LOSS WAS LESS THAN 5 ML. FLUOROSCOPIC TIME WAS 33 SECONDS. POST PROCEDURE NOTE DEPENDING ON THE RESULTS, CONSIDER A LUMBAR EPIDURAL. IN THE FUTURE, WE SHOULD GIVE HER MORE PRESEDATION BEFORE A PROCEDURE. THE PATIENT WAS VERY UNCOMFORTABLE. THE PROCEDURE DONE WAS DISCUSSED WITH THE PATIENT. THE PATIENT WILL BE SEEN IN A FOLLOW UP IN THE NEXT FEW WEEKS. I AM LOOKING FOR LONG LASTING PAIN RELIEF FOR THE PATIENT WITH THIS INTERVENTION. INSTRUCTIONS WERE GIVEN, QUESTIONS WERE ANSWERED, AND THE PATIENT EXPRESSED UNDERSTANDING AND AGREES WITH THE PLAN. I, JEANNINE VIZCAINO, DOCUMENTED THE ABOVE INFORMATION ACTING A SCRIBE FOR DR. XIONG. I HAVE REVIEWED THE ABOVE DOCUMENT, WRITTEN BY JEANNINE VIZCAINO, PASTRY SUPERVISOR, AND I VERIFY THAT IT IS ACCURATE PROCEDURE CODES 50343 INJECT SACROILIAC JOINT, MODIFIERS: 50 DISPOSITION & COMMUNICATION FOLLOW UP FOLLOW UP WITH CATHETERIZATION LABORATORY TECHNICIAN (REASON: POST BILATERAL SACROILIAC JOINT BLOCK) ELECTRONICALLY SIGNED BY BERNARD XIONG MD, MD ON 02/19/2021 AT 03:41 PM EDT DISCLAIMER : THIS IS A VISIT SUMMARY EXTRACTED FROM THE [employer] CHART. IT IS NOT A COPY OF THE [employer] PROGRESS NOTE. MTDD
--- NOTE | 2021-02-20 01:45 | ECWPNPC ---
PATIENT NAME: DEBO GALLEGOS : 1985 GENDER: FEMALE VISIT DATE: 02/18/2021 DISCHARGE DATE: 02/18/21 1222 VISIT LOCKED DATE TIME: PHYSICIAN: BERNARD XIONG MD RESOURCE: BERNARD XIONG MD REASON FOR APPOINTMENT 1. BILATERAL SACROILIAC JOINT BLOCK HISTORY OF PRESENT ILLNESS GENERAL: -. FALL RISK SCREENING: SCREENING : 3 FALLS REPORTED IN THE LAST YEAR, MOST RECENT FALL WITHOUT INJURY.. PAIN SCREENING: PATIENT HAS A COMPLAINT OF ACUTE OR CHRONIC PAIN :YES LOCATION OF PAIN:LOW BACK, LEFT HIP, RIGHT HIP INTENSITY OF PAIN (SCALE OF 1 TO 10):10 WHAT DOES YOUR PAIN FEEL LIKE:ACHING, INTERMITTENT, STABBING, THROBBING DURATION:INTERMITTENT, AWAKENS FROM SLEEP PAIN IS INCREASED BY:ACTIVITIES, PROLONGED STANDING PAIN IS DECREASED BY:USE OF PAIN MEDICATIONS, SITTING PLAN/GOALS/TREATMENT/INTERVENTION/FOLLOW UP:SEE PLAN NURSING NOTE: -. PAIN CENTER INTAKE QUESTIONS: DO YOU HAVE A HISTORY OF MRSA? :NO DO YOU TAKE A BLOOD THINNERS? :NO DO YOU HAVE ANY BLEEDING DISORDERS? :NO ANY NEW NUMBNESS OR WEAKNESS IN YOUR LEGS OR ARMS? :NO ANY PACEMAKER,DEFIBRILLATOR, OR DORSAL COLUMN STIMULATOR? :NO DO YOU HAVE ANY RASHES OR OPEN SORES? :NO ARE YOU ALLERGIC TO IV DYE? :NO ARE YOU DIABETIC? :NO HAVE YOU RECEIVED A VACCINE IN THE PAST 30 DAYS? :NO DO YOU PLAN TO RECEIVE A VACCINE IN THE NEXT 21 DAYS? :NO DO YOU NEED ANY PRESCRIPTION? :NO DO YOU TAKE ANY IMMUNOSUPPRESSIVE MEDICATIONS? :YES COPAXONE (LD: 02/15/21) ANY HISTORY OF SEIZURES? :NO ANY HISTORY OF CARDIAC ISSUES OR EVENTS? :NO DO YOU HAVE ANY KIDNEY OR LIVER DISEASE? :NO DO YOU HAVE SLEEP APNEA? :NO ANY RECENT HEAD INJURY? :NO DO YOU HAVE ANY NEW INFECTIONS? :NO IS THERE A CHANCE YOU COULD BE ? :NO ARE YOU BREAST FEEDING? :NO WHEN DID YOU LAST EAT? : 02/16/21 WHEN DID YOU LAST DRINK? : 02/17/21 0800 WHAT DID YOU LAST DRINK? : SPRITE NAME OF PERSON DRIVING YOU HOME? : BF DO YOU HAVE ANY OTHER QUESTIONS OR CONCERNS? : NO CURRENT MEDICATIONS TAKING ZYRTEC 10 MG TABLET 1 CAP ORALLY DAILY TAKING DULOXETINE HCL 60 MG CAPSULE DELAYED RELEASE PARTICLES 1 CAPSULE ORALLY ONCE A DAY TAKING PROVIGIL 100 MG TABLET 1 TABLET IN THE MORNING ORALLY BID TAKING LYRICA 150 MG CAPSULE 1 CAPSULE ORALLY BID, NOTES: 02/15/21 TAKING FOLIC ACID 1 MG TABLET 1 TABLET ORALLY ONCE A DAY TAKING VITAMIN D 1000 UNIT TABLET 1 TABLET ORALLY ONCE A DAY TAKING TRAZODONE HCL 50 MG TABLET 1 TABLET AT BEDTIME NEEDED ORALLY ONCE A DAY, NOTES: 02/16/21 TAKING COPAXONE 20 MG/ML SOLUTION PREFILLED SYRINGE 1 ML SUBCUTANEOUS ONCE A DAY, NOTES: 02/14/21 TAKING DALFAMPRIDINE ER 10 MG TABLET EXTENDED RELEASE 12 HOUR 1 TABLET ORALLY TWICE A DAY TAKING MECLIZINE HCL 25 MG TABLET CHEWABLE 1 TABLET NEEDED ORALLY ONCE A DAY TAKING TIZANIDINE HCL 4 MG TABLET 1 TABLET NEEDED ORALLY THREE TIMES A DAY, NOTES: NONE LATELY TAKING HYDROXYZINE HCL 25 MG TABLET 1 TAB ORALLY EVERY 6 HRS NEEDED TAKING DOCUSATE SODIUM 100 MG CAPSULE 1 CAPSULE NEEDED ORALLY ONCE A DAY TAKING METHENAMINE HIPPURATE 1 GM TABLET 1 TABLET ORALLY TWICE A DAY TAKING FLOMAX 0.4 MG CAPSULE 1 CAPSULE ORALLY ONCE A DAY TAKING ABILIFY 10 MG TABLET 1 TABLET ORALLY ONCE A DAY NOT-TAKING FLOMAX 0.4 MG CAPSULE 1 CAPSULE ORALLY ONCE A DAY NOT-TAKING NITROFURANTOIN MONOHYD MACRO 100 MG CAPSULE 1 CAPSULE WITH FOOD ORALLY EVERY 12 HRS NOT-TAKING PHENAZOPYRIDINE HCL 100 MG TABLET 2 TABLETS AFTER MEALS ORALLY THREE TIMES A DAY NOT-TAKING SYNTHROID 25 MCG TABLET 1 TABLET ON AN EMPTY STOMACH IN THE MORNING ORALLY ONCE A DAY NOT-TAKING BACTRIM DS 800-160 MG TABLET 1 TABLET 1 HOUR PRIOR TO YOUR CYSTOSCOPY ORALLY ONCE NOT-TAKING DIFLUCAN 100 MG TABLET 1 TABLET 1 HOUR PRIOR TO YOUR CYSTOSCOPY ORALLY ONCE NOT-TAKING FLUCONAZOLE 150 MG TABLET DIRECTED ORALLY NOT-TAKING BACLOFEN 10 MG/20ML SOLUTION DIRECTED INTRATHECAL MEDICATION LIST REVIEWED AND RECONCILED WITH THE PATIENT PAST MEDICAL HISTORY UTI MS HYPOTHYROIDISM BELLS PALSY CHRONIC BACK PAIN ALLERGIES MORPHINE SULFATE (PF): HIVES LATEX (FOR ALLERGY USE ONLY): SENSITIVITY SOCIAL HISTORY GENERAL: TOBACCO USE ARE YOU A:CURRENT SMOKER ARE YOU INTERESTED IN QUITTING?NOT READY TO QUIT COUNSELED THE PATIENT ON SMOKING EFFECTS, EDUCATION [id number]/07/2021 HOW MANY CIGARETTES A DAY DO YOU SMOKE?6-10 HOW SOON AFTER YOU WAKE UP DO YOU SMOKE YOUR FIRST CIGARETTE?6-30 MIN HOW OFTEN DO YOU SMOKE CIGARETTES?EVERY DAY PATIENT COUNSELED ON THE DANGERS OF TOBACCO USE AND URGED TO QUIT:02/04/2020 SMOKING CESSATION INFORMATION GIVEN01/21/2020 VAPORNO E-CIGARETTENO LATEX QUESTIONNAIRE LATEX ALLERGY : HAVE YOU EVER DEVELOPED ANY TYPE OF REACTION AFTER HANDLING LATEX PRODUCTS SUCH RUBBER GLOVES, CONDOMS, DIAPHRAGMS, BALLOONS, SOCKS, OR UNDERWEAR?NO LATEX ALLERGY : HAVE YOU EVER DEVELOPED ANY TYPE OF REACTION DURING OR AFTER DENTAL APPOINTMENT, VAGINAL/RECTAL EXAMINATION, SURGICAL PROCEDURE, OR ANY OTHER EXPOSURE?NO DATE ASKED : 12/24/2020 LATEX RISK : HAVE YOU EVER HAD ANY DIFFICULTY BREATHING OR HIVES AFTER EATING OR HANDLING ANY FRUITS, OR VEGETABLES; SUCH KIWI, BANANAS, STONE FRUITS, OR CHESTNUTSNO LATEX RISK : DO YOU HAVE A PREVIOUS PERSONAL HISTORY OF MORE THAN NINE SURGERIES, SPINA BIFIDA, OR REPEATED CATHERIZATIONS? NO LATEX RISK : ARE YOU FREQUENTLY EXPOSED TO LATEX PRODUCTS IN YOUR OCCUPATION?NO ALCOHOL USE: NO. ALCOHOL SCREENING DID YOU HAVE A DRINK CONTAINING ALCOHOL IN THE PAST YEAR?YES HOW OFTEN DID YOU HAVE SIX OR MORE DRINKS ON ONE OCCASION IN THE PAST YEAR?NEVER (0 POINTS) HOW MANY DRINKS DID YOU HAVE ON A TYPICAL DAY WHEN YOU WERE DRINKING IN THE PAST YEAR?1 OR 2 (0 POINTS) HOW OFTEN DID YOU HAVE A DRINK CONTAINING ALCOHOL IN THE PAST YEAR?MONTHLY OR LESS (1 POINT) POINTS1 INTERPRETATIONNEGATIVE RECREATIONAL DRUG USE DRUG USE?NO MEDICINAL MARIJUANA CAFFEINE CAFFEINE USE?YES SODA,TEA, SOMETIMES COFFEE SEXUAL HX HAD SEX IN THE LAST 12 MONTHS (VAGINAL, ORAL, OR ANAL)?YES WITHMEN ONLY PREVENTION STRATEGIES DISCUSSED:OTHER USE PROTECTION?NO HAVE YOU EVER HAD AN STD?NO JUDAISM JUDAISM NO YAZIDISM BELIEFS THAT WOULD IMPACT HEALTH CARE. LANGUAGE LANGUAGES SPOKEN:BELARUSIAN EDUCATION LEVEL OF EDUCATION:HIGH SCHOOL LEARNING BARRIERS / SPECIAL NEEDS BARRIERS TO LEARNING?NO HEARING IMPAIRED?NO VISION IMPAIRED?YES CONTACTS COGNITIVELY IMPAIRED?NO READINESS TO LEARN?YES LEARNING PREFERENCES?YES :TAPES/VIDEOS, BOOKLETS, HANDOUTS VISUAL LEARNING CAPABILITIES PRESENT?YES EMOTIONAL BARRIERS?NO SPECIAL DEVICES?NO FORESTRY AID TECHNICIAN NEEDED?NO DOMESTIC VIOLENCE STATUS: DO YOU FEEL SAFE IN YOUR ENVIRONMENT?YES OCCUPATION: RETAIL. DIET: REGULAR. EXERCISE: NO REGULAR EXERCISE. MARITAL STATUS: . OTHERS AT HOME: SPOUSE. - PFS REFERRAL NEEDED?NO CLERGY REFERRAL NEEDED?NO PUBLIC HEALTH REFERRAL NEEDED?NO WAS THE PROVIDER NOTIFIED OF ANY PERTINENT INFO?YES HAS THE PATIENT BEEN EDUCATED REGARDING HIS/HER PLAN OF CARE?YES HAS THE PATIENT BEEN EDUCATED REGARDING PAIN, THE RISK FOR PAIN, THE IMPORTANCE OF EFFECTIVE PAIN MANAGEMENT, AND THE PAIN ASSESSMENT PROCESS?YES HOUSING: OWNS HOME. ADVANCE DIRECTIVE ADVANCE DIRECTIVE DISCUSSED WITH PATIENT:YES HCP - SOL () VITAL SIGNS WT 195.4 LBS, HT 70 IN, BMI 28.03 INDEX, BP 147/92 MM HG, HR 96 /MIN, RR 18 /MIN, TEMP 97.0 F, OXYGEN SAT % 99%, SAFE IN ENV? (Y/N) Y, NA INITIALS SC 10:37, REVIEWED BY: EM. EXAMINATION GENERAL: THE PATIENT IS ALERT, ORIENTED TIMES THREE AND COOPERATIVE. LUNGS ARE CLEAR TO AUSCULTATION. HEART SHOWS REGULAR RHYTHM, NO MURMURS AND NO GALLOPS. ASSESSMENTS SACROILIITIS, NOT ELSEWHERE CLASSIFIED - M46.1 (PRIMARY) TREATMENT SACROILIITIS, NOT ELSEWHERE CLASSIFIED [facility] FLUORO GUIDANCE (PAIN)[id number] COMPLETION OF PROCEDURAL VISIT WHEN MEETS CRITERIATRISTAN LOPEZ 02/18/2021 12:22:31 PM > CRITERIA MET MED: PAIN BENADRYL TAB 25MG ORALLY DIPHENHYDRAMINERAE LEON 02/18/2021 11:46:24 AM > VERIFIED TRISTAN LOPEZ 02/18/2021 11:47:43 AM > ADMINISTERED MEDICATION: NORCO TABLET 5MG/325MG ORALLY (HYDROCODONE/ACETAMINOPHEN)RAE LEON 02/18/2021 11:46:47 AM > VERIFIED TRISTAN LOPEZ 02/18/2021 11:47:57 AM > ADMINISTERED MEDICATION: PAIN VALIUM TAB 5MG ORALLY (DIAZEPAM)RAE LEON 02/18/2021 11:47:07 AM > VERIFIED TRISTAN LOPEZ 02/18/2021 11:48:09 AM > ADMINISTERED OTHERS NOTES: 02/17/21 1600 PAT ANNABEL MARQUEZ, ENERGY SALES CONSULTANT. PROCEDURES PAIN NURSING RECORD PROCEDURE IN ROOM 1149, PHYSICIAN IN ROOM 1151, START 1156, FINISH 1202, PHYSICIAN OUT OF ROOM 1203, OUT OF ROOM 1210, ECG NORMAL SINUS, PATIENT SHIELDED YES, SAFETY STRAP YES, PREP CHLOROPREP Shantel LOPEZ RN, DRESSING TEGADERM DR. XIONG LOC: 1. ALERT, ORIENTED, TRISTAN LOPEZ 02/18/2021 11:58:05 AM > RESP: 1. REGULAR, NO DYSPNEA, TRISTAN LOPEZ 02/18/2021 11:58:09 AM > COLOR: 1. PINK, RYAN LOPEZBETH 02/18/2021 11:58:12 AM > SKIN: 1. WARM, DRY, RYAN LOPEZBETH 02/18/2021 11:58:15 AM > POSITION: 1. PRONE, RYAN LOPEZBETH 02/18/2021 11:58:19 AM > VITALS: 135/92, 86, 16, 100%, JESSICATRISTAN 02/18/2021 11:50:36 AM > 137/79, 91, 16, 100%, JESSICATRISTAN DORSEY 02/18/2021 12:00:31 PM > 143/97, 83, 16, 100%, JESSICATRITSAN 02/18/2021 12:17:57 PM > NOTES Shantel LOPEZ RN, JESSICARAZA DORSEYTH 02/18/2021 11:58:40 AM > COMPLETION OF PROCEDURE APPOINTMENT: POST PAIN 0, DRESSING SITE DRY AND INTACT, IV N/A, GAIT STEADY, TEACHING COMPLETED, PATIENT ACKNOWLEDGES UNDERSTANDING YES, PROCEDURE APPOINTMENT COMPLETED AT 1222 PN SI PRE PROCEDURE DIAGNOSIS SACROILIITIS, SACROILIAC JOINT DYSFUNCTION POST PROCEDURE DIAGNOSIS SACROILIITIS, SACROILIAC JOINT DYSFUNCTION PROCEDURE BILATERAL SACROILIAC JOINT BLOCK SURGEON DR. BERNARD XIONG BOILER/CHILLER TECHNICIAN NONE ANESTHESIA LOCAL PRE PROCEDURE NOTE THE PATIENT WITH HISTORY OF CHRONIC LOW BACK PAIN. I EVALUATED THE PATIENT AND REVIEWED THE CHART. I WENT OVER THE RISKS, ALTERNATIVES, AND BENEFITS ASSOCIATED WITH THIS PROCEDURE. THE PATIENT WOULD LIKE TO PROCEED AND GAVE CONSENT TO PERFORM THE PROCEDURE. THE PATIENT DENIES UNEXPLAINABLE WEIGHT LOSS, FEVER, CHILLS, OR NEW CHANGES IN URINARY OR BOWEL CONTROL. THE PATIENT IS COVID-19 NEGATIVE DESCRIPTION OF PROCEDURE THE PATIENT WAS BROUGHT TO THE PROCEDURE ROOM AND PLACED IN THE PRONE POSITION. THE LUMBOSACRAL AREA WAS CLEANED WITH CHLORAPREP SOLUTION AND DRAPED ASEPTICALLY. THE PROCEDURE WAS DONE UNDER STERILE CONDITIONS. A TIMEOUT WAS PERFORMED WHERE THE CONSENTED SITE WAS VERIFIED WITH EVERYONE IN THE ROOM. UNDER FLUOROSCOPIC GUIDANCE, THE TARGET POINT WAS SELECTED AT THE LOWER BORDER OF THE RIGHT AND LEFT SACROILIAC JOINT. TARGET POINT WAS SELECTED AFTER MEDIAL ROTATION AND TILT OF THE MAGNIFIER OR THE C-ARM. I CONFIRMED AGAIN THE SITE OF TARGET. LIDOCAINE 0.5% WAS USED TO NUMB THE SKIN AND THE SUBCUTANEOUS TISSUE BELOW IT. SPINAL NEEDLES, 22-GAUGE, WERE ADVANCED UNDER FLUOROSCOPIC GUIDANCE AND FOLLOWING PATIENT FEEDBACK UNTIL THE TARGETS WERE TOUCHED. THE POSITION OF THE NEEDLES WAS VERIFIED WITH AP AND OBLIQUE VIEWS. AFTER PROPER POSITION OF THE NEEDLES WAS ACHIEVED, ISOVUE-M DYE 30%, 0.1 ML, WAS INJECTED SHOWING ADEQUATE SPREAD OF THE DYE. KENALOG 40 MG WAS INJECTED AT EACH SITE. THEN, A SOLUTION OF 3.0 ML OF BUPIVACAINE 0.125% WAS USED TO FLUSH EACH NEEDLE. THE MEDICATIONS WERE VERIFIED WITH THE NURSE. THERE WAS NO EVIDENCE OF BLOOD, PARESTHESIA OR CEREBROSPINAL FLUID DURING THE PROCEDURE. THE PATIENT WAS SENT TO THE RECOVERY ROOM. THE PATIENT WAS MOVING THE EXTREMITIES AND DOING WELL. THERE WERE NO COMPLICATIONS DURING THE PROCEDURE. ESTIMATED BLOOD LOSS WAS LESS THAN 5 ML. FLUOROSCOPIC TIME WAS 33 SECONDS. POST PROCEDURE NOTE DEPENDING ON THE RESULTS, CONSIDER A LUMBAR EPIDURAL. IN THE FUTURE, WE SHOULD GIVE HER MORE PRESEDATION BEFORE A PROCEDURE. THE PATIENT WAS VERY UNCOMFORTABLE. THE PROCEDURE DONE WAS DISCUSSED WITH THE PATIENT. THE PATIENT WILL BE SEEN IN A FOLLOW UP IN THE NEXT FEW WEEKS. I AM LOOKING FOR LONG LASTING PAIN RELIEF FOR THE PATIENT WITH THIS INTERVENTION. INSTRUCTIONS WERE GIVEN, QUESTIONS WERE ANSWERED, AND THE PATIENT EXPRESSED UNDERSTANDING AND AGREES WITH THE PLAN. I, JEANNINE VIZCAINO, DOCUMENTED THE ABOVE INFORMATION ACTING A SCRIBE FOR DR. XIONG. I HAVE REVIEWED THE ABOVE DOCUMENT, WRITTEN BY JEANNINE VIZCAINO, FITNESS LEADER, AND I VERIFY THAT IT IS ACCURATE PROCEDURE CODES 69255 INJECT SACROILIAC JOINT, MODIFIERS: 50 DISPOSITION & COMMUNICATION FOLLOW UP FOLLOW UP WITH ENGINEERING TECHNICAL SPECIALIST (REASON: POST BILATERAL SACROILIAC JOINT BLOCK) ELECTRONICALLY SIGNED BY BERNARD XIONG MD, MD ON 02/19/2021 AT 03:41 PM EDT DISCLAIMER : THIS IS A VISIT SUMMARY EXTRACTED FROM THE [employer] CHART. IT IS NOT A COPY OF THE [employer] PROGRESS NOTE. MTDD
--- NOTE | 2021-02-20 01:48 | ECWPNPC ---
PATIENT NAME: DEBO GALLEGOS : 1985 GENDER: FEMALE VISIT DATE: 02/18/2021 DISCHARGE DATE: 02/18/21 1222 VISIT LOCKED DATE TIME: PHYSICIAN: BERNARD XIONG MD RESOURCE: BERNARD XIONG MD REASON FOR APPOINTMENT 1. BILATERAL SACROILIAC JOINT BLOCK HISTORY OF PRESENT ILLNESS GENERAL: -. FALL RISK SCREENING: SCREENING : 3 FALLS REPORTED IN THE LAST YEAR, MOST RECENT FALL WITHOUT INJURY.. PAIN SCREENING: PATIENT HAS A COMPLAINT OF ACUTE OR CHRONIC PAIN :YES LOCATION OF PAIN:LOW BACK, LEFT HIP, RIGHT HIP INTENSITY OF PAIN (SCALE OF 1 TO 10):10 WHAT DOES YOUR PAIN FEEL LIKE:ACHING, INTERMITTENT, STABBING, THROBBING DURATION:INTERMITTENT, AWAKENS FROM SLEEP PAIN IS INCREASED BY:ACTIVITIES, PROLONGED STANDING PAIN IS DECREASED BY:USE OF PAIN MEDICATIONS, SITTING PLAN/GOALS/TREATMENT/INTERVENTION/FOLLOW UP:SEE PLAN NURSING NOTE: -. PAIN CENTER INTAKE QUESTIONS: DO YOU HAVE A HISTORY OF MRSA? :NO DO YOU TAKE A BLOOD THINNERS? :NO DO YOU HAVE ANY BLEEDING DISORDERS? :NO ANY NEW NUMBNESS OR WEAKNESS IN YOUR LEGS OR ARMS? :NO ANY PACEMAKER,DEFIBRILLATOR, OR DORSAL COLUMN STIMULATOR? :NO DO YOU HAVE ANY RASHES OR OPEN SORES? :NO ARE YOU ALLERGIC TO IV DYE? :NO ARE YOU DIABETIC? :NO HAVE YOU RECEIVED A VACCINE IN THE PAST 30 DAYS? :NO DO YOU PLAN TO RECEIVE A VACCINE IN THE NEXT 21 DAYS? :NO DO YOU NEED ANY PRESCRIPTION? :NO DO YOU TAKE ANY IMMUNOSUPPRESSIVE MEDICATIONS? :YES COPAXONE (LD: 02/15/21) ANY HISTORY OF SEIZURES? :NO ANY HISTORY OF CARDIAC ISSUES OR EVENTS? :NO DO YOU HAVE ANY KIDNEY OR LIVER DISEASE? :NO DO YOU HAVE SLEEP APNEA? :NO ANY RECENT HEAD INJURY? :NO DO YOU HAVE ANY NEW INFECTIONS? :NO IS THERE A CHANCE YOU COULD BE ? :NO ARE YOU BREAST FEEDING? :NO WHEN DID YOU LAST EAT? : 02/16/21 WHEN DID YOU LAST DRINK? : 02/17/21 0800 WHAT DID YOU LAST DRINK? : SPRITE NAME OF PERSON DRIVING YOU HOME? : BF DO YOU HAVE ANY OTHER QUESTIONS OR CONCERNS? : NO CURRENT MEDICATIONS TAKING ZYRTEC 10 MG TABLET 1 CAP ORALLY DAILY TAKING DULOXETINE HCL 60 MG CAPSULE DELAYED RELEASE PARTICLES 1 CAPSULE ORALLY ONCE A DAY TAKING PROVIGIL 100 MG TABLET 1 TABLET IN THE MORNING ORALLY BID TAKING LYRICA 150 MG CAPSULE 1 CAPSULE ORALLY BID, NOTES: 02/15/21 TAKING FOLIC ACID 1 MG TABLET 1 TABLET ORALLY ONCE A DAY TAKING VITAMIN D 1000 UNIT TABLET 1 TABLET ORALLY ONCE A DAY TAKING TRAZODONE HCL 50 MG TABLET 1 TABLET AT BEDTIME NEEDED ORALLY ONCE A DAY, NOTES: 02/16/21 TAKING COPAXONE 20 MG/ML SOLUTION PREFILLED SYRINGE 1 ML SUBCUTANEOUS ONCE A DAY, NOTES: 02/14/21 TAKING DALFAMPRIDINE ER 10 MG TABLET EXTENDED RELEASE 12 HOUR 1 TABLET ORALLY TWICE A DAY TAKING MECLIZINE HCL 25 MG TABLET CHEWABLE 1 TABLET NEEDED ORALLY ONCE A DAY TAKING TIZANIDINE HCL 4 MG TABLET 1 TABLET NEEDED ORALLY THREE TIMES A DAY, NOTES: NONE LATELY TAKING HYDROXYZINE HCL 25 MG TABLET 1 TAB ORALLY EVERY 6 HRS NEEDED TAKING DOCUSATE SODIUM 100 MG CAPSULE 1 CAPSULE NEEDED ORALLY ONCE A DAY TAKING METHENAMINE HIPPURATE 1 GM TABLET 1 TABLET ORALLY TWICE A DAY TAKING FLOMAX 0.4 MG CAPSULE 1 CAPSULE ORALLY ONCE A DAY TAKING ABILIFY 10 MG TABLET 1 TABLET ORALLY ONCE A DAY NOT-TAKING FLOMAX 0.4 MG CAPSULE 1 CAPSULE ORALLY ONCE A DAY NOT-TAKING NITROFURANTOIN MONOHYD MACRO 100 MG CAPSULE 1 CAPSULE WITH FOOD ORALLY EVERY 12 HRS NOT-TAKING PHENAZOPYRIDINE HCL 100 MG TABLET 2 TABLETS AFTER MEALS ORALLY THREE TIMES A DAY NOT-TAKING SYNTHROID 25 MCG TABLET 1 TABLET ON AN EMPTY STOMACH IN THE MORNING ORALLY ONCE A DAY NOT-TAKING BACTRIM DS 800-160 MG TABLET 1 TABLET 1 HOUR PRIOR TO YOUR CYSTOSCOPY ORALLY ONCE NOT-TAKING DIFLUCAN 100 MG TABLET 1 TABLET 1 HOUR PRIOR TO YOUR CYSTOSCOPY ORALLY ONCE NOT-TAKING FLUCONAZOLE 150 MG TABLET DIRECTED ORALLY NOT-TAKING BACLOFEN 10 MG/20ML SOLUTION DIRECTED INTRATHECAL MEDICATION LIST REVIEWED AND RECONCILED WITH THE PATIENT PAST MEDICAL HISTORY UTI MS HYPOTHYROIDISM BELLS PALSY CHRONIC BACK PAIN ALLERGIES MORPHINE SULFATE (PF): HIVES LATEX (FOR ALLERGY USE ONLY): SENSITIVITY SOCIAL HISTORY GENERAL: TOBACCO USE ARE YOU A:CURRENT SMOKER ARE YOU INTERESTED IN QUITTING?NOT READY TO QUIT COUNSELED THE PATIENT ON SMOKING EFFECTS, EDUCATION [id number]/07/2021 HOW MANY CIGARETTES A DAY DO YOU SMOKE?6-10 HOW SOON AFTER YOU WAKE UP DO YOU SMOKE YOUR FIRST CIGARETTE?6-30 MIN HOW OFTEN DO YOU SMOKE CIGARETTES?EVERY DAY PATIENT COUNSELED ON THE DANGERS OF TOBACCO USE AND URGED TO QUIT:02/04/2020 SMOKING CESSATION INFORMATION GIVEN01/21/2020 VAPORNO E-CIGARETTENO LATEX QUESTIONNAIRE LATEX ALLERGY : HAVE YOU EVER DEVELOPED ANY TYPE OF REACTION AFTER HANDLING LATEX PRODUCTS SUCH RUBBER GLOVES, CONDOMS, DIAPHRAGMS, BALLOONS, SOCKS, OR UNDERWEAR?NO LATEX ALLERGY : HAVE YOU EVER DEVELOPED ANY TYPE OF REACTION DURING OR AFTER DENTAL APPOINTMENT, VAGINAL/RECTAL EXAMINATION, SURGICAL PROCEDURE, OR ANY OTHER EXPOSURE?NO DATE ASKED : 12/24/2020 LATEX RISK : HAVE YOU EVER HAD ANY DIFFICULTY BREATHING OR HIVES AFTER EATING OR HANDLING ANY FRUITS, OR VEGETABLES; SUCH KIWI, BANANAS, STONE FRUITS, OR CHESTNUTSNO LATEX RISK : DO YOU HAVE A PREVIOUS PERSONAL HISTORY OF MORE THAN NINE SURGERIES, SPINA BIFIDA, OR REPEATED CATHERIZATIONS? NO LATEX RISK : ARE YOU FREQUENTLY EXPOSED TO LATEX PRODUCTS IN YOUR OCCUPATION?NO ALCOHOL USE: NO. ALCOHOL SCREENING DID YOU HAVE A DRINK CONTAINING ALCOHOL IN THE PAST YEAR?YES HOW OFTEN DID YOU HAVE SIX OR MORE DRINKS ON ONE OCCASION IN THE PAST YEAR?NEVER (0 POINTS) HOW MANY DRINKS DID YOU HAVE ON A TYPICAL DAY WHEN YOU WERE DRINKING IN THE PAST YEAR?1 OR 2 (0 POINTS) HOW OFTEN DID YOU HAVE A DRINK CONTAINING ALCOHOL IN THE PAST YEAR?MONTHLY OR LESS (1 POINT) POINTS1 INTERPRETATIONNEGATIVE RECREATIONAL DRUG USE DRUG USE?NO MEDICINAL MARIJUANA CAFFEINE CAFFEINE USE?YES SODA,TEA, SOMETIMES COFFEE SEXUAL HX HAD SEX IN THE LAST 12 MONTHS (VAGINAL, ORAL, OR ANAL)?YES WITHMEN ONLY PREVENTION STRATEGIES DISCUSSED:OTHER USE PROTECTION?NO HAVE YOU EVER HAD AN STD?NO CHURCH CHURCH NO MANDAEN BELIEFS THAT WOULD IMPACT HEALTH CARE. LANGUAGE LANGUAGES SPOKEN:MICRONESIAN EDUCATION LEVEL OF EDUCATION:HIGH SCHOOL LEARNING BARRIERS / SPECIAL NEEDS BARRIERS TO LEARNING?NO HEARING IMPAIRED?NO VISION IMPAIRED?YES CONTACTS COGNITIVELY IMPAIRED?NO READINESS TO LEARN?YES LEARNING PREFERENCES?YES :TAPES/VIDEOS, BOOKLETS, HANDOUTS VISUAL LEARNING CAPABILITIES PRESENT?YES EMOTIONAL BARRIERS?NO SPECIAL DEVICES?NO SUPERVISOR INSTRUMENT MECHANICS NEEDED?NO DOMESTIC VIOLENCE STATUS: DO YOU FEEL SAFE IN YOUR ENVIRONMENT?YES OCCUPATION: RETAIL. DIET: REGULAR. EXERCISE: NO REGULAR EXERCISE. MARITAL STATUS: . OTHERS AT HOME: SPOUSE. - PFS REFERRAL NEEDED?NO CLERGY REFERRAL NEEDED?NO PUBLIC HEALTH REFERRAL NEEDED?NO WAS THE PROVIDER NOTIFIED OF ANY PERTINENT INFO?YES HAS THE PATIENT BEEN EDUCATED REGARDING HIS/HER PLAN OF CARE?YES HAS THE PATIENT BEEN EDUCATED REGARDING PAIN, THE RISK FOR PAIN, THE IMPORTANCE OF EFFECTIVE PAIN MANAGEMENT, AND THE PAIN ASSESSMENT PROCESS?YES HOUSING: OWNS HOME. ADVANCE DIRECTIVE ADVANCE DIRECTIVE DISCUSSED WITH PATIENT:YES HCP - SOL () VITAL SIGNS WT 195.4 LBS, HT 70 IN, BMI 28.03 INDEX, BP 147/92 MM HG, HR 96 /MIN, RR 18 /MIN, TEMP 97.0 F, OXYGEN SAT % 99%, SAFE IN ENV? (Y/N) Y, NA INITIALS SC 10:37, REVIEWED BY: EM. EXAMINATION GENERAL: THE PATIENT IS ALERT, ORIENTED TIMES THREE AND COOPERATIVE. LUNGS ARE CLEAR TO AUSCULTATION. HEART SHOWS REGULAR RHYTHM, NO MURMURS AND NO GALLOPS. ASSESSMENTS SACROILIITIS, NOT ELSEWHERE CLASSIFIED - M46.1 (PRIMARY) TREATMENT SACROILIITIS, NOT ELSEWHERE CLASSIFIED [facility] FLUORO GUIDANCE (PAIN)[id number] COMPLETION OF PROCEDURAL VISIT WHEN MEETS CRITERIATRISTAN LOPEZ 02/18/2021 12:22:31 PM > CRITERIA MET MED: PAIN BENADRYL TAB 25MG ORALLY DIPHENHYDRAMINERAE LEON 02/18/2021 11:46:24 AM > VERIFIED TRISTAN LOPEZ 02/18/2021 11:47:43 AM > ADMINISTERED MEDICATION: NORCO TABLET 5MG/325MG ORALLY (HYDROCODONE/ACETAMINOPHEN)RAE LEON 02/18/2021 11:46:47 AM > VERIFIED TRISTAN LOPEZ 02/18/2021 11:47:57 AM > ADMINISTERED MEDICATION: PAIN VALIUM TAB 5MG ORALLY (DIAZEPAM)RAE LEON 02/18/2021 11:47:07 AM > VERIFIED TRISTAN LOPEZ 02/18/2021 11:48:09 AM > ADMINISTERED OTHERS NOTES: 02/17/21 1600 PAT ANNABEL MARQUEZ, VAT OPERATOR. PROCEDURES PAIN NURSING RECORD PROCEDURE IN ROOM 1149, PHYSICIAN IN ROOM 1151, START 1156, FINISH 1202, PHYSICIAN OUT OF ROOM 1203, OUT OF ROOM 1210, ECG NORMAL SINUS, PATIENT SHIELDED YES, SAFETY STRAP YES, PREP CHLOROPREP Shantel LOPEZ RN, DRESSING TEGADERM DR. XIONG LOC: 1. ALERT, ORIENTED, TRISTAN LOPEZ 02/18/2021 11:58:05 AM > RESP: 1. REGULAR, NO DYSPNEA, TRISTAN LOPEZ 02/18/2021 11:58:09 AM > COLOR: 1. PINK, RYAN LOPEZBETH 02/18/2021 11:58:12 AM > SKIN: 1. WARM, DRY, RYAN LOPEZBETH 02/18/2021 11:58:15 AM > POSITION: 1. PRONE, RYAN LOPEZBETH 02/18/2021 11:58:19 AM > VITALS: 135/92, 86, 16, 100%, JESSIACTRISTAN 02/18/2021 11:50:36 AM > 137/79, 91, 16, 100%, JESSICATRISTAN DORSEY 02/18/2021 12:00:31 PM > 143/97, 83, 16, 100%, JESSICATRISTAN 02/18/2021 12:17:57 PM > NOTES Shantel LOPEZ RN, JESSICARAZA DORSEYTH 02/18/2021 11:58:40 AM > COMPLETION OF PROCEDURE APPOINTMENT: POST PAIN 0, DRESSING SITE DRY AND INTACT, IV N/A, GAIT STEADY, TEACHING COMPLETED, PATIENT ACKNOWLEDGES UNDERSTANDING YES, PROCEDURE APPOINTMENT COMPLETED AT 1222 PN SI PRE PROCEDURE DIAGNOSIS SACROILIITIS, SACROILIAC JOINT DYSFUNCTION POST PROCEDURE DIAGNOSIS SACROILIITIS, SACROILIAC JOINT DYSFUNCTION PROCEDURE BILATERAL SACROILIAC JOINT BLOCK SURGEON DR. BERNARD XIONG VENEER SORTER NONE ANESTHESIA LOCAL PRE PROCEDURE NOTE THE PATIENT WITH HISTORY OF CHRONIC LOW BACK PAIN. I EVALUATED THE PATIENT AND REVIEWED THE CHART. I WENT OVER THE RISKS, ALTERNATIVES, AND BENEFITS ASSOCIATED WITH THIS PROCEDURE. THE PATIENT WOULD LIKE TO PROCEED AND GAVE CONSENT TO PERFORM THE PROCEDURE. THE PATIENT DENIES UNEXPLAINABLE WEIGHT LOSS, FEVER, CHILLS, OR NEW CHANGES IN URINARY OR BOWEL CONTROL. THE PATIENT IS COVID-19 NEGATIVE DESCRIPTION OF PROCEDURE THE PATIENT WAS BROUGHT TO THE PROCEDURE ROOM AND PLACED IN THE PRONE POSITION. THE LUMBOSACRAL AREA WAS CLEANED WITH CHLORAPREP SOLUTION AND DRAPED ASEPTICALLY. THE PROCEDURE WAS DONE UNDER STERILE CONDITIONS. A TIMEOUT WAS PERFORMED WHERE THE CONSENTED SITE WAS VERIFIED WITH EVERYONE IN THE ROOM. UNDER FLUOROSCOPIC GUIDANCE, THE TARGET POINT WAS SELECTED AT THE LOWER BORDER OF THE RIGHT AND LEFT SACROILIAC JOINT. TARGET POINT WAS SELECTED AFTER MEDIAL ROTATION AND TILT OF THE MAGNIFIER OR THE C-ARM. I CONFIRMED AGAIN THE SITE OF TARGET. LIDOCAINE 0.5% WAS USED TO NUMB THE SKIN AND THE SUBCUTANEOUS TISSUE BELOW IT. SPINAL NEEDLES, 22-GAUGE, WERE ADVANCED UNDER FLUOROSCOPIC GUIDANCE AND FOLLOWING PATIENT FEEDBACK UNTIL THE TARGETS WERE TOUCHED. THE POSITION OF THE NEEDLES WAS VERIFIED WITH AP AND OBLIQUE VIEWS. AFTER PROPER POSITION OF THE NEEDLES WAS ACHIEVED, ISOVUE-M DYE 30%, 0.1 ML, WAS INJECTED SHOWING ADEQUATE SPREAD OF THE DYE. KENALOG 40 MG WAS INJECTED AT EACH SITE. THEN, A SOLUTION OF 3.0 ML OF BUPIVACAINE 0.125% WAS USED TO FLUSH EACH NEEDLE. THE MEDICATIONS WERE VERIFIED WITH THE NURSE. THERE WAS NO EVIDENCE OF BLOOD, PARESTHESIA OR CEREBROSPINAL FLUID DURING THE PROCEDURE. THE PATIENT WAS SENT TO THE RECOVERY ROOM. THE PATIENT WAS MOVING THE EXTREMITIES AND DOING WELL. THERE WERE NO COMPLICATIONS DURING THE PROCEDURE. ESTIMATED BLOOD LOSS WAS LESS THAN 5 ML. FLUOROSCOPIC TIME WAS 33 SECONDS. POST PROCEDURE NOTE DEPENDING ON THE RESULTS, CONSIDER A LUMBAR EPIDURAL. IN THE FUTURE, WE SHOULD GIVE HER MORE PRESEDATION BEFORE A PROCEDURE. THE PATIENT WAS VERY UNCOMFORTABLE. THE PROCEDURE DONE WAS DISCUSSED WITH THE PATIENT. THE PATIENT WILL BE SEEN IN A FOLLOW UP IN THE NEXT FEW WEEKS. I AM LOOKING FOR LONG LASTING PAIN RELIEF FOR THE PATIENT WITH THIS INTERVENTION. INSTRUCTIONS WERE GIVEN, QUESTIONS WERE ANSWERED, AND THE PATIENT EXPRESSED UNDERSTANDING AND AGREES WITH THE PLAN. I, JEANNINE VIZCAINO, DOCUMENTED THE ABOVE INFORMATION ACTING A SCRIBE FOR DR. XIONG. I HAVE REVIEWED THE ABOVE DOCUMENT, WRITTEN BY JEANNINE VIZCAINO, FASHION DESIGN PROFESSOR, AND I VERIFY THAT IT IS ACCURATE PROCEDURE CODES 06497 INJECT SACROILIAC JOINT, MODIFIERS: 50 DISPOSITION & COMMUNICATION FOLLOW UP FOLLOW UP WITH SOLE BUFFER (REASON: POST BILATERAL SACROILIAC JOINT BLOCK) ELECTRONICALLY SIGNED BY BERNARD XIONG MD, MD ON 02/19/2021 AT 03:41 PM EDT DISCLAIMER : THIS IS A VISIT SUMMARY EXTRACTED FROM THE [employer] CHART. IT IS NOT A COPY OF THE [employer] PROGRESS NOTE. MTDD
== END ==
LOC: M PAIN 10:20
PROVIDERS: ATTEND Anesthesiology
DX: M46.1 Sacroiliitis, not elsewhere classified (principal); G35 Multiple sclerosis; F17.210 Nicotine dependence, cigarettes, uncomplicated; Z88.5 Allergy status to narcotic agent; Z91.040 Latex allergy status; Z79.899 Other long term (current) drug therapy
CPT/HCPCS: G0260; J3301; Q9967

== ENCOUNTER 2021-04-15 23:21 | Emergency (ER) | payer OTHER ==
[~2021-04-15] VITALS: Ht 165.1 cm; Wt 90.8 kg
[~2021-04-15 23:21] MED LIST changes: -BUPIVACAINE HCL 0.25% 30ML VIAL As Ordered ONE; -ISOVUE-M 300 61% 15ML VIAL As Ordered ONE; -LIDOCAINE 1% SDV 30ML VIAL As Ordered ONE; -NORCO, ANEXSIA 5/325MG TABLET (HYDROcodone/ACETAMINOPHEN) As Ordered ONE; -TRIAMCINOLONE ACETONIDE SUSP 40 MG/ML VIAL (J3301) As Ordered ONE; -diazePAM 5MG TABLET As Ordered ONE; -diphenhydrAMINE 25MG CAP As Ordered ONE
[2021-04-15] MEDS ORDERED: LORazepam 2 MG/ML VIAL IM ONE (23:25)
[2021-04-15] MEDS ORDERED: HALOPERIDOL 5MG/ML VIAL (J1630 PER 1) IM ONE (23:25)
[2021-04-15] MEDS ORDERED: diphenhydrAMINE 50MG/ML VIAL (J1200) IM ONE (23:25)
[2021-04-15] MEDS ORDERED: HALOPERIDOL 5MG/ML VIAL (J1630 PER 1) As Ordered ONE (23:28)
[2021-04-15] MEDS ORDERED: diphenhydrAMINE 50MG/ML VIAL (J1200) As Ordered ONE (23:28)
[2021-04-15] MEDS ORDERED: LORazepam 2 MG/ML VIAL As Ordered ONE (23:28)
[2021-04-15] MEDS ORDERED: LORazepam 2 MG/ML VIAL IV STA (23:54)
[2021-04-15] MEDS ORDERED: NS 1,000 ML IV ONE (23:55)
[2021-04-16 00:30] LABS: HEMATOCRIT 43.1 % (36.0-47.0); HEMOGLOBIN 14.5 g/dl (12.0-15.5); MEAN CORPUSCULAR HEMOGLOBIN 31.3 pg (27.0-33.0); MEAN CORPUSCULAR HGB CONC 33.6 g/dl (32.0-36.5); MEAN CORPUSCULAR VOLUME 92.9 fl (80.0-96.0); PLATELET COUNT, AUTOMATED 418 10^3/uL (150-450); RED BLOOD COUNT 4.64 10^6/uL (4.00-5.40)
[2021-04-16 00:38] LABS: HCG, SERUM QUALITATIVE NEGATIVE (NEGATIVE)
[2021-04-16 00:46] LABS: ACETAMINOPHEN LEVEL 2.2 UG/ML (10.0-30.0); ALBUMIN 3.7 GM/DL (3.2-5.2); ALT/SGPT 17 U/L (12-78); BILIRUBIN,DIRECT < 0.1 MG/DL (0.0-0.2); BILIRUBIN,TOTAL 0.2 MG/DL (0.2-1.0); BLOOD UREA NITROGEN 6 MG/DL (7-18); CALCIUM LEVEL 8.6 MG/DL (8.5-10.1); CARBON DIOXIDE LEVEL 17 MEQ/L (21-32); CHLORIDE LEVEL 113 MEQ/L (98-107); CREATININE FOR GFR 0.78 MG/DL (0.55-1.30); ETHYL ALCOHOL (ETHANOL) 0.267 % (0.000-0.010); GLOMERULAR FILTRATION RATE > 60.0 (>60); GLUCOSE, FASTING 123 MG/DL (70-100); POTASSIUM SERUM 3.7 MEQ/L (3.5-5.1); SALICYLATE LEVEL 5.5 MG/DL (5.0-30.0); SODIUM LEVEL 141 MEQ/L (136-145); THYROID STIMULATING HORMONE 0.394 uIU/ML (0.358-3.740)
[2021-04-16 02:12] LABS: AMPHETAMINES LEVEL URINE NEGATIVE (NEGATIVE); BARBITURATES URINE NEGATIVE (NEGATIVE); BENZODIAZEPINES URINE NEGATIVE (NEGATIVE); CANNABINOIDS URINE NEGATIVE (NEGATIVE); COCAINE METABOLITE URINE NEGATIVE (NEGATIVE); METHADONE URINE NEGATIVE (NEGATIVE); OPIATES URINE NEGATIVE (NEGATIVE); PHENCYCLIDINE URINE NEGATIVE (NEGATIVE)
[2021-04-16 09:00] VITALS: BP 137/91
[2021-04-16] MEDS ORDERED: CETIRIZINE (ZyrTEC) 10 MG TAB PO ONE (10:55)
[2021-04-16] MEDS ORDERED: PREGABALIN 75 MG CAP(LYRICA) PO ONE (10:55)
== END 2021-04-16 13:44 | disposition home or self-care (01) ==
LOC: M ED 23:21
DX: F10.929 Alcohol use, unspecified with intoxication, unspecified (principal); Z79.899 Other long term (current) drug therapy; Z88.5 Allergy status to narcotic agent; Z91.040 Latex allergy status
CPT/HCPCS: 51701; 80048; 80076; 80143; 80307; 82077; 84443; 84703; 85027; 96372; 96374; 99285; J1200; J1630; J2060

== ENCOUNTER → 2021-09-23 | Outpatient (CLI) | payer OTHER | LOC: M PAIN 13:45 | PROVIDERS: ATTEND Anesthesiology | DX: M46.1 Sacroiliitis, not elsewhere classified (principal); M53.3 Sacrococcygeal disorders, not elsewhere classified; E03.9 Hypothyroidism, unspecified; F17.210 Nicotine dependence, cigarettes, uncomplicated; Z79.899 Other long term (current) drug therapy; Z88.5 Allergy status to narcotic agent; Z91.040 Latex allergy status ==

== ENCOUNTER → 2021-11-18 | Outpatient (CLI) | payer OTHER ==
[~2021-11-18] MED LIST changes: -D31000TA2 PO; +VITA100093 PO
== END ==
LOC: M LABSMTC 11:16
PROVIDERS: ATTEND Anesthesiology
DX: Z11.52 Encounter for screening for COVID-19 (principal)

== ENCOUNTER → 2021-11-23 | Outpatient (CLI) | payer OTHER ==
[~2021-11-23] MED LIST changes: +BUPIVACAINE HCL 0.25% 30ML VIAL As Ordered ONE; +ISOVUE-M 300 61% 15ML VIAL As Ordered ONE; +LIDOCAINE 1% SDV 30ML VIAL As Ordered ONE; +TRIAMCINOLONE ACETONIDE SUSP 40 MG/ML VIAL (J3301) As Ordered ONE; +diazePAM 5MG TABLET As Ordered ONE; +diphenhydrAMINE 25MG CAP As Ordered ONE; +oxyCODONE 5MG TAB As Ordered ONE
== END ==
LOC: M PAIN 10:00
PROVIDERS: ATTEND Anesthesiology
DX: M46.1 Sacroiliitis, not elsewhere classified (principal); Z79.899 Other long term (current) drug therapy
CPT/HCPCS: G0260; J3301; Q9967

== ENCOUNTER → 2021-12-16 | Outpatient (REF) | payer OTHER ==
[~2021-12-16] MED LIST changes: -BUPIVACAINE HCL 0.25% 30ML VIAL As Ordered ONE; -ISOVUE-M 300 61% 15ML VIAL As Ordered ONE; -LIDOCAINE 1% SDV 30ML VIAL As Ordered ONE; -TRIAMCINOLONE ACETONIDE SUSP 40 MG/ML VIAL (J3301) As Ordered ONE; -diazePAM 5MG TABLET As Ordered ONE; -diphenhydrAMINE 25MG CAP As Ordered ONE; -oxyCODONE 5MG TAB As Ordered ONE
[2021-12-17 00:24] LABS: HCG, SERUM QUALITATIVE NEGATIVE (NEGATIVE)
[2021-12-17 00:33] LABS: HCG, SERUM QUANTITATIVE < 1.0 MIU/ML
== END ==
LOC: M LAB REF 23:28
PROVIDERS: ATTEND Physician Assistant
DX: Z32.02 Encounter for pregnancy test, result negative (principal)

== ENCOUNTER 2022-02-04 08:48 | Inpatient (IN) | payer OTHER ==
[~2022-02-04] VITALS: Ht 165.1 cm; Wt 87.6 kg
[2022-02-04] MEDS ORDERED: NS 1,000 ML IV ONE ×2 (08:55→11:10)
[2022-02-04 09:38] LABS: BASO # 0.2 10^3/uL (0.0-0.2); BASO % 0.7 % (0.0-1.0); EOS # 0.3 10^3/uL (0.0-0.5); EOS % 1.6 % (0.0-3.0); HEMATOCRIT 47.3 % (36.0-47.0); LYMPH # 2.3 10^3/uL (1.5-5.0); LYMPH % 10.7 % (24.0-44.0); MEAN CORPUSCULAR HEMOGLOBIN 32.3 pg (27.0-33.0); MEAN CORPUSCULAR HGB CONC 33.8 g/dl (32.0-36.5); MEAN CORPUSCULAR VOLUME 95.4 fl (80.0-96.0); MONO # 1.3 10^3/uL (0.0-0.8); MONO % 5.9 % (2.0-8.0); NEUTROPHILS # 17.1 10^3/uL (1.5-8.5); NEUTROPHILS % 80.5 % (36.0-66.0); PLATELET COUNT, AUTOMATED 465 10^3/uL (150-450); RED BLOOD COUNT 4.96 10^6/uL (4.00-5.40); WHITE BLOOD COUNT 21.2 10^3/uL (4.0-10.0)
[2022-02-04] MEDS ORDERED: CHARCOAL ACTIVATED LIQUID 25 GM/120 ML BTL PO ONE (10:05)
[2022-02-04 10:12] LABS: ALBUMIN 3.7 GM/DL (3.2-5.2); BILIRUBIN,TOTAL 0.5 MG/DL (0.2-1.0); BLOOD UREA NITROGEN 10 MG/DL (7-18); CALCIUM LEVEL 9.5 MG/DL (8.5-10.1); CARBON DIOXIDE LEVEL 20 MEQ/L (21-32); CHLORIDE LEVEL 107 MEQ/L (98-107); CREATININE FOR GFR 1.03 MG/DL (0.55-1.30); ETHYL ALCOHOL (ETHANOL) < 0.003 % (0.000-0.010); GLOMERULAR FILTRATION RATE > 60.0 (>60); GLUCOSE, FASTING 249 MG/DL (70-100); SALICYLATE LEVEL 4.6 MG/DL (5.0-30.0); SODIUM LEVEL 129 MEQ/L (136-145); THYROID STIMULATING HORMONE 0.138 uIU/ML (0.358-3.740); TOTAL PROTEIN 7.9 GM/DL (6.4-8.2)
[2022-02-04 10:27] LABS: HCG, SERUM QUALITATIVE NEGATIVE (NEGATIVE)
[2022-02-04 10:30] LABS: ALT/SGPT 13 U/L (12-78); BILIRUBIN,DIRECT 0.1 MG/DL (0.0-0.2); POTASSIUM SERUM 4.3 MEQ/L (3.5-5.1)
[2022-02-04 14:39] LABS: AMPHETAMINES LEVEL URINE NEGATIVE (NEGATIVE); BARBITURATES URINE NEGATIVE (NEGATIVE); BENZODIAZEPINES URINE NEGATIVE (NEGATIVE); CANNABINOIDS URINE POSITIVE (NEGATIVE); COCAINE METABOLITE URINE NEGATIVE (NEGATIVE); METHADONE URINE NEGATIVE (NEGATIVE); OPIATES URINE NEGATIVE (NEGATIVE); PHENCYCLIDINE URINE NEGATIVE (NEGATIVE)
[2022-02-04] MEDS ORDERED: NICOTINE 21MG/24HR 1 EA TRANSDERMAL TD ONE (15:25)
[2022-02-04 17:48] LABS: HEMATOCRIT 43.5 % (36.0-47.0); HEMOGLOBIN 14.7 g/dl (12.0-15.5); MEAN CORPUSCULAR HEMOGLOBIN 32.5 pg (27.0-33.0); MEAN CORPUSCULAR HGB CONC 33.8 g/dl (32.0-36.5); MEAN CORPUSCULAR VOLUME 96.2 fl (80.0-96.0); PLATELET COUNT, AUTOMATED 404 10^3/uL (150-450); RED BLOOD COUNT 4.52 10^6/uL (4.00-5.40); WHITE BLOOD COUNT 13.4 10^3/uL (4.0-10.0)
[2022-02-04] MEDS ORDERED: PREGABALIN 75 MG CAP(LYRICA) PO ONE (20:10)
[2022-02-04] MEDS ORDERED: traZODone 100 MG TAB PO ONE (20:10)
[2022-02-05] MEDS ORDERED: CLON-412 PO (05:06)
[2022-02-05] MEDS ORDERED: ZOLO100T PO (05:06)
[2022-02-05] MEDS ORDERED: MIRT-10 PO (05:06)
[2022-02-05] MEDS ORDERED: PRAZ2CAP PO (06:13)
[2022-02-05] MEDS ORDERED: PRAZ5CAP PO (06:13)
[2022-02-05] MEDS ORDERED: MECL-86 PO (06:13)
[2022-02-05] MEDS ORDERED: HOME MED LIST COMPLETE! XX SCH (06:15)
[2022-02-05] MEDS ORDERED: ACETAMINOPHEN 325 MG TAB PO ONE (08:00)
[2022-02-05] MEDS: PREGABALIN 75 MG CAP(LYRICA) PO SCH ×2 (08:29→20:28)
[2022-02-05] MEDS ORDERED: SERTRALINE HCL 50 MG TAB PO SCH (09:00)
[2022-02-05] MEDS ORDERED: LORazepam 2 MG TAB PO STA (12:45)
[2022-02-05] MEDS ORDERED: IBUPROFEN 600MG TAB PO ONE (13:00)
[2022-02-05] MEDS ORDERED: OLANZapine ORAL DISINTEGRATING TAB 5MG PO PRN (16:55)
[2022-02-05] MEDS ORDERED: MAALOX 30 ML SUSP *UDC PO PRN (16:55)
[2022-02-05] MEDS ORDERED: MOM 30ML SUSPENSION UDC PO PRN (16:55)
[2022-02-05] MEDS ORDERED: traZODone 50 MG TAB PO PRN (16:55)
[2022-02-05 18:22] VITALS: BP 159/101
[2022-02-05] MEDS: MIRTAZAPINE 15 MG TAB PO SCH (21:17)
[2022-02-05] MEDS: PRAZOSIN 1 MG CAP PO SCH (21:37)
[2022-02-05 21:39] VITALS: BP 132/87
[2022-02-06 06:24] VITALS: BP 125/73
[2022-02-06] MEDS: ACETAMINOPHEN TAB 650MG DOSE (2X325MG) PO PRN ×2 (08:18→20:37)
[2022-02-06] MEDS: SERTRALINE HCL 50 MG TAB PO SCH (08:18)
[2022-02-06] MEDS: PREGABALIN 75 MG CAP(LYRICA) PO SCH ×2 (08:18→20:36)
[2022-02-06] MEDS ORDERED: diphenhydrAMINE 50MG CAP PO PRN (09:00)
[2022-02-06] MEDS ORDERED: PRAZOSIN 1 MG CAP PO SCH (09:00)
[2022-02-06] MEDS: NICOTINE 21MG/24HR 1 EA TRANSDERMAL TD SCH (09:39)
[2022-02-06] MEDS: SENOKOT S TAB PO SCH ×2 (11:48→20:36)
[2022-02-06] MEDS: cloNIDine 0.1MG TABLET PO PRN ×2 (12:51→23:51)
[2022-02-06 16:13] VITALS: BP 139/79
[2022-02-06] MEDS: PRAZOSIN 1 MG CAP PO SCH (23:51)
[2022-02-06] MEDS: MIRTAZAPINE 15 MG TAB PO SCH (23:52)
[2022-02-07 06:52] LABS: BASO # 0.1 10^3/uL (0.0-0.2); BASO % 1.3 % (0.0-1.0); EOS # 0.3 10^3/uL (0.0-0.5); EOS % 2.9 % (0.0-3.0); HEMATOCRIT 40.8 % (36.0-47.0); LYMPH # 3.1 10^3/uL (1.5-5.0); LYMPH % 31.2 % (24.0-44.0); MEAN CORPUSCULAR HEMOGLOBIN 31.9 pg (27.0-33.0); MEAN CORPUSCULAR HGB CONC 34.3 g/dl (32.0-36.5); MEAN CORPUSCULAR VOLUME 92.9 fl (80.0-96.0); MONO % 10.3 % (2.0-8.0); NEUTROPHILS # 5.3 10^3/uL (1.5-8.5); PLATELET COUNT, AUTOMATED 364 10^3/uL (150-450); RED BLOOD COUNT 4.39 10^6/uL (4.00-5.40); WHITE BLOOD COUNT 9.8 10^3/uL (4.0-10.0)
[2022-02-07 07:08] LABS: HEMOGLOBIN A1c 5.1 %
[2022-02-07 07:15] VITALS: BP 135/81
[2022-02-07 07:34] LABS: BLOOD UREA NITROGEN 11 MG/DL (7-18); CALCIUM LEVEL 8.4 MG/DL (8.5-10.1); CARBON DIOXIDE LEVEL 26 MEQ/L (21-32); CHLORIDE LEVEL 109 MEQ/L (98-107); CREATININE FOR GFR 0.69 MG/DL (0.55-1.30); FREE T4 0.92 NG/DL (0.76-1.46); GLOMERULAR FILTRATION RATE > 60.0 (>60); GLUCOSE, FASTING 95 MG/DL (70-100); POTASSIUM SERUM 3.6 MEQ/L (3.5-5.1); SODIUM LEVEL 140 MEQ/L (136-145); THYROID STIMULATING HORMONE 0.305 uIU/ML (0.358-3.740)
[2022-02-07] MEDS: SENOKOT S TAB PO SCH (08:00)
[2022-02-07] MEDS: PREGABALIN 75 MG CAP(LYRICA) PO SCH ×2 (08:00→20:06)
[2022-02-07] MEDS: SERTRALINE HCL 50 MG TAB PO SCH (08:00)
[2022-02-07] MEDS: NICOTINE 21MG/24HR 1 EA TRANSDERMAL TD SCH (08:01)
[2022-02-07] MEDS: cloNIDine 0.1MG TABLET PO PRN (11:23)
[2022-02-07] MEDS: ACETAMINOPHEN TAB 650MG DOSE (2X325MG) PO PRN (17:11)
[2022-02-07 18:00] VITALS: BP 114/84
[2022-02-08] MEDS: SENOKOT S TAB PO SCH ×2 (00:12→09:10)
[2022-02-08] MEDS: MIRTAZAPINE 15 MG TAB PO SCH (00:12)
[2022-02-08] MEDS: ACETAMINOPHEN TAB 650MG DOSE (2X325MG) PO PRN (00:12)
[2022-02-08] MEDS: cloNIDine 0.1MG TABLET PO PRN (00:13)
[2022-02-08 00:14] VITALS: BP 170/89
[2022-02-08] MEDS: PRAZOSIN 1 MG CAP PO SCH (00:14)
[2022-02-08 06:00] VITALS: BP 145/78
[2022-02-08] MEDS ORDERED: SERTRALINE HCL 50 MG TAB PO SCH (09:00)
[2022-02-08] MEDS: PREGABALIN 75 MG CAP(LYRICA) PO SCH (09:10)
[2022-02-08] MEDS: NICOTINE 21MG/24HR 1 EA TRANSDERMAL TD SCH (09:12)
[2022-02-08 09:32] VITALS: BP 145/78
[2022-02-08] MEDS ORDERED: CLON-412 PO (10:29)
[2022-02-08] MEDS ORDERED: NICO21PAT TD (10:29)
[2022-02-08] MEDS ORDERED: SENN-52 PO (10:29)
[2022-02-08] MEDS ORDERED: LYRI150C PO (10:29)
[2022-02-08] MEDS ORDERED: SERT50TA29 PO (10:29)
== END 2022-02-08 11:56 | disposition home or self-care (01) | DRG 882 ==
LOC: EDBD 08:48 → M ED 08:48 → M ED INP 02-05 16:52 → M PSY 02-05 18:19
PROVIDERS: ADMIT Student in an Organized Health Care Education/Training Program; ATTEND Student in an Organized Health Care Education/Training Program
DX: F43.10 Post-traumatic stress disorder, unspecified (principal); F10.11 Alcohol abuse, in remission; F60.89 Other specific personality disorders; F32.A Depression, unspecified; T42.8X1A Poisoning by antiparkinsonism drugs and other central muscle-tone depressants, accidental (unintentional), initial encounter; T46.5X1A Poisoning by other antihypertensive drugs, accidental (unintentional), initial encounter; G35 Multiple sclerosis; R33.9 Retention of urine, unspecified; E03.9 Hypothyroidism, unspecified; M46.1 Sacroiliitis, not elsewhere classified; K59.09 Other constipation; R10.2 Pelvic and perineal pain; E55.9 Vitamin D deficiency, unspecified; G89.29 Other chronic pain; R42 Dizziness and giddiness; R73.9 Hyperglycemia, unspecified; D72.829 Elevated white blood cell count, unspecified; Z91.51 Personal history of suicidal behavior; Z63.0 Problems in relationship with spouse or partner; Z79.899 Other long term (current) drug therapy; Z88.5 Allergy status to narcotic agent; Z91.040 Latex allergy status; Z65.3 Problems related to other legal circumstances

== ENCOUNTER → 2022-09-26 | Outpatient (CLI) | payer SELFPAY ==
[~2022-09-26] MED LIST changes: +AZIT500T5 PO; +CLON-412 PO; +DOXY-443 PO; +MECL-86 PO; +MIRT-10 PO; +NICO21PAT TD; +PRAZ2CAP PO; +PRAZ5CAP PO; +SENN-52 PO; +SERT50TA29 PO; +ZOLO100T PO
[2022-09-26 14:00] LABS: HEMATOCRIT 37.7 % (36.0-47.0); HEMOGLOBIN 12.5 g/dl (12.0-15.5); MEAN CORPUSCULAR HEMOGLOBIN 32.1 pg (27.0-33.0); MEAN CORPUSCULAR HGB CONC 33.2 g/dl (32.0-36.5); MEAN CORPUSCULAR VOLUME 96.7 fl (80.0-96.0); PLATELET COUNT, AUTOMATED 465 10^3/uL (150-450); WHITE BLOOD COUNT 18.2 10^3/uL (4.0-10.0)
[2022-09-26 14:48] LABS: HIV 1&2 SCREEN CENTAUR NEGATIVE (NEGATIVE)
[2022-09-26 16:40] LABS: GC DNA AMPLIFICATION NEGATIVE (NEGATIVE)
== END ==
LOC: M PLALAB 10:40
PROVIDERS: ATTEND Advanced Practice Midwife
DX: Z36.9 Encounter for antenatal screening, unspecified (principal)

== ENCOUNTER → 2022-10-07 | Outpatient (CLI) | payer MEDICAID, SELFPAY | LOC: M PLALAB 14:24 | PROVIDERS: ATTEND Advanced Practice Midwife | DX: Z34.91 Encounter for supervision of normal pregnancy, unspecified, first trimester (principal); Z3A.00 Weeks of gestation of pregnancy not specified ==

== ENCOUNTER → 2022-10-25 | Outpatient (REF) | payer MEDICAID, OTHER, SELFPAY | LOC: M SFHCPLAZ 09:40 | PROVIDERS: ATTEND Specialist | DX: Z34.83 Encounter for supervision of other normal pregnancy, third trimester (principal) ==

== ENCOUNTER → 2022-11-16 | Outpatient (CLI) | payer OTHER | LOC: M WHC 09:35 | PROVIDERS: ATTEND Specialist | DX: Z34.82 Encounter for supervision of other normal pregnancy, second trimester (principal) ==

== ENCOUNTER → 2023-02-01 | Outpatient (CLI) | payer OTHER ==
[2023-02-01 15:48] LABS: HEMATOCRIT 33.4 % (36.0-47.0); MEAN CORPUSCULAR HEMOGLOBIN 31.3 pg (27.0-33.0); MEAN CORPUSCULAR HGB CONC 32.9 g/dl (32.0-36.5); MEAN CORPUSCULAR VOLUME 94.9 fl (80.0-96.0); PLATELET COUNT, AUTOMATED 492 10^3/uL (150-450); RED BLOOD COUNT 3.52 10^6/uL (4.00-5.40); WHITE BLOOD COUNT 20.4 10^3/uL (4.0-10.0)
[2023-02-01 17:29] LABS: GC DNA AMPLIFICATION NEGATIVE (NEGATIVE)
== END ==
LOC: M PLALAB 13:35
PROVIDERS: ATTEND Specialist
DX: Z34.82 Encounter for supervision of other normal pregnancy, second trimester (principal)

== ENCOUNTER → 2023-02-09 | Outpatient (CLI) | payer OTHER | LOC: M LAB 07:35 | PROVIDERS: ATTEND Specialist | DX: Z34.82 Encounter for supervision of other normal pregnancy, second trimester (principal) ==

== ENCOUNTER → 2023-03-21 | Outpatient (REF) | payer OTHER | LOC: M SFHCWAGY 13:07 | PROVIDERS: ATTEND Obstetrics & Gynecology | DX: O09.523 Supervision of elderly multigravida, third trimester (principal) ==

== ENCOUNTER 2023-03-26 20:04 | Outpatient (CLI) | payer OTHER ==
[~2023-03-26] VITALS: Ht 165.1 cm; Wt 96.0 kg
[2023-03-26 20:17] VITALS: BP 138/72
[2023-03-26] MEDS ORDERED: ABIL10TA9 PO (20:25)
[2023-03-26] MEDS ORDERED: HOME MED LIST COMPLETE! XX SCH (20:25)
[2023-03-26] MEDS ORDERED: ECOT81TA5 PO (20:25)
== END 2023-03-26 21:31 | disposition home or self-care (01) ==
LOC: M LDO 20:04
PROVIDERS: ATTEND Obstetrics & Gynecology
DX: O36.8130 Decreased fetal movements, third trimester, not applicable or unspecified (principal); O09.523 Supervision of elderly multigravida, third trimester; O99.333 Smoking (tobacco) complicating pregnancy, third trimester; F17.210 Nicotine dependence, cigarettes, uncomplicated; O99.343 Other mental disorders complicating pregnancy, third trimester; F32.A Depression, unspecified; Z87.51 Personal history of pre-term labor; Z3A.37 37 weeks gestation of pregnancy; Z88.5 Allergy status to narcotic agent; Z91.040 Latex allergy status
CPT/HCPCS: 59025; G0463

== ENCOUNTER 2023-04-05 07:26 | Inpatient (IN) | payer OTHER ==
[~2023-04-05] VITALS: Ht 165.1 cm; Wt 96.3 kg
[2023-04-05] VITALS (12 sets, daily range): BP systolic 136–174; BP diastolic 81–96
[~2023-04-05 07:26] MED LIST changes: +ABIL10TA9 PO; +ECOT81TA5 PO
[2023-04-05] MEDS ORDERED: CARBOPROST TROMETHAMINE 250 MCG/ML AMP IM PRN (08:10)
[2023-04-05] MEDS ORDERED: OXYTOCIN DRIP 30 UNITS in IV 1 EA IV PRN ×4 (08:10)
[2023-04-05] MEDS ORDERED: TRANEXAMIC ACID INJection 1,000 MG in NS 100 ML IV PRN (08:10)
[2023-04-05] MEDS ORDERED: OXYTOCIN INJ 10UNITS/ML 1ML VIAL IM PRN (08:10)
[2023-04-05] MEDS ORDERED: LIDOCAINE 1% MDV 20ML VIAL INFIL PRN (08:10)
[2023-04-05] MEDS ORDERED: HOME MED LIST COMPLETE! XX SCH (09:00)
[2023-04-05 09:14] LABS: HEMATOCRIT 33.3 % (36.0-47.0); MEAN CORPUSCULAR HEMOGLOBIN 29.5 pg (27.0-33.0); MEAN CORPUSCULAR VOLUME 89.3 fl (80.0-96.0); PLATELET COUNT, AUTOMATED 406 10^3/uL (150-450); RED BLOOD COUNT 3.73 10^6/uL (4.00-5.40); WHITE BLOOD COUNT 16.6 10^3/uL (4.0-10.0)
[2023-04-05 09:25] LABS: LDH LACTATE DEHYDROGENASE 139 U/L (120-246)
[2023-04-05 09:26] LABS: ALT/SGPT < 9 U/L (7.0-40); AST/SGOT < 8 U/L (<34); BILIRUBIN,TOTAL < 0.2 MG/DL (0.3-1.2); CREATININE FOR GFR 0.43 MG/DL (0.55-1.30); GLOMERULAR FILTRATION RATE > 60.0 (>60)
[2023-04-05 09:47] LABS: TOTAL PROTEIN,RANDOM URINE 6.8 MG/DL (0.0-14.0)
[2023-04-05 09:51] LABS: CREATININE,RANDOM URINE 24.4 MG/DL
[2023-04-05] MEDS: miSOPROStol 50MCG 1/2 TABLET PO SCH ×3 (09:57→18:11)
[2023-04-05] MEDS: NICOTINE 21MG/24HR 1 EA TRANSDERMAL TD SCH (10:34)
[2023-04-05] MEDS: CALCIUM CARBONATE 500 MG CHEW U/D PO PRN (18:12)
[2023-04-05] MEDS ORDERED: OXYTOCIN DRIP 30 UNITS in IV 1 EA IV SCH (19:00)
[2023-04-05] MEDS: LR 1,000 ML IV SCH (22:14)
[2023-04-05] MEDS ORDERED: ONDANSETRON 4MG 2ML VIAL IV PRN (23:25)
[2023-04-05] MEDS ORDERED: ePHEDrine SULFATE 25 MG/5 ML(5MG/ML) SYRINGE IVP PRN (23:25)
[2023-04-05] MEDS ORDERED: diphenhydrAMINE 50MG/ML VIAL IV PRN (23:25)
[2023-04-05] MEDS ORDERED: LR 500 ML IV PRN (23:25)
[2023-04-05] MEDS ORDERED: EPIDURAL/PCA KEYS XX PRN (23:25)
[2023-04-05] MEDS ORDERED: NALOXONE INJ 0.4MG/1ML VIAL IV PRN (23:25)
[2023-04-06] VITALS (24 sets, daily range): BP systolic 115–182; BP diastolic 56–101; O2SAT 97–98
[2023-04-06] MEDS: FENTANYL/ROPIVACAINE/NACL BAG 100 ML EPIDURAL SCH ×2 (00:24→06:02)
[2023-04-06] MEDS: LR 1,000 ML IV SCH (06:04)
[2023-04-06] MEDS ORDERED: ACETAMINOPHEN TAB 650MG DOSE (2X325MG) PO PRN (07:15)
[2023-04-06] MEDS ORDERED: DOCUSATE SODIUM 100MG CAPSULE PO PRN (07:15)
[2023-04-06] MEDS ORDERED: IBUPROFEN 600MG TAB PO PRN (07:15)
[2023-04-06] MEDS ORDERED: RHOGAM 300MCG (1500IU) INJ IM SCH (07:15)
[2023-04-06] MEDS ORDERED: TUMS500C PO (07:44)
[2023-04-06] MEDS: IBUPROFEN 800 MG TAB PO PRN ×2 (08:29→16:10)
[2023-04-06] MEDS: PRENATAL VITAMINS CHEWABLE TABLET PO SCH (08:29)
[2023-04-06] MEDS: NICOTINE 21MG/24HR 1 EA TRANSDERMAL TD SCH (08:32)
[2023-04-06] MEDS ORDERED: NICOTINE 21MG/24HR 1 EA TRANSDERMAL TD SCH (09:00)
[2023-04-06] MEDS: SERTRALINE 100 MG TAB PO SCH (10:00)
[2023-04-06] MEDS: ACETAMINOPHEN 500 MG TAB PO PRN ×2 (12:59→19:48)
[2023-04-06] MEDS: CALCIUM CARBONATE 500 MG CHEW U/D PO PRN (16:09)
[2023-04-06] MEDS: DIBUCAINE 1% OINTMENT 30GM TOP PRN (16:53)
[2023-04-06] MEDS ORDERED: ARIPiprazole 10 MG TAB PO SCH (21:00)
[2023-04-07] MEDS: ACETAMINOPHEN 500 MG TAB PO PRN (05:29)
[2023-04-07 06:00] VITALS: BP 148/68
[2023-04-07] MEDS: PRENATAL VITAMINS CHEWABLE TABLET PO SCH (08:53)
[2023-04-07 08:54] VITALS: BP 140/80
[2023-04-07] MEDS: SERTRALINE 100 MG TAB PO SCH (08:55)
[2023-04-07] MEDS ORDERED: LABETALOL 200 MG TAB PO SCH (09:00)
[2023-04-07] MEDS: NICOTINE 21MG/24HR 1 EA TRANSDERMAL TD SCH (09:56)
[2023-04-07 10:00] VITALS: BP 117/74; O2SAT 98
[2023-04-07] MEDS: IBUPROFEN 800 MG TAB PO PRN (10:56)
[2023-04-07] MEDS: DIBUCAINE 1% OINTMENT 30GM TOP PRN (11:33)
[2023-04-08] MEDS ORDERED: MEASLES,MUMPS,RUBELLA VACCINE INJ (MMR-II) SC.IMMUN ONE (09:00)
== END 2023-04-07 11:35 | disposition home or self-care (01) | DRG 560 ==
LOC: M LDI 07:26 → M OBS 04-06 09:30
PROVIDERS: ADMIT Advanced Practice Midwife; ATTEND Advanced Practice Midwife
PROC: 3E0P7GC Introduction of Other Therapeutic Substance into Female Reproductive, Via Natural or Artificial Opening (ICD-10-PCS; 2023-04-05)
PROC: 10E0XZZ Delivery of Products of Conception, External Approach (ICD-10-PCS; principal; 2023-04-06)
DX: O13.4 Gestational [pregnancy-induced] hypertension without significant proteinuria, complicating childbirth (principal); O99.344 Other mental disorders complicating childbirth; F32.A Depression, unspecified; Z3A.38 38 weeks gestation of pregnancy; O99.334 Smoking (tobacco) complicating childbirth; F17.210 Nicotine dependence, cigarettes, uncomplicated; Z79.82 Long term (current) use of aspirin; Z37.0 Single live birth; F17.200 Nicotine dependence, unspecified, uncomplicated; Z88.5 Allergy status to narcotic agent; Z91.040 Latex allergy status; O99.324 Drug use complicating childbirth; F12.90 Cannabis use, unspecified, uncomplicated; F10.21 Alcohol dependence, in remission

== ENCOUNTER → 2023-04-24 | Outpatient (REF) | payer OTHER ==
[~2023-04-24] MED LIST changes: +TUMS500C PO
[2023-04-24 19:16] LABS: BASO # 0.1 10^3/uL (0.0-0.2); BASO % 1.1 % (0.0-1.0); EOS # 0.5 10^3/uL (0.0-0.5); EOS % 4.6 % (0.0-3.0); HEMATOCRIT 39.4 % (36.0-47.0); HEMOGLOBIN 12.3 g/dl (12.0-15.5); LYMPH # 2.1 10^3/uL (1.5-5.0); LYMPH % 18.3 % (24.0-44.0); MEAN CORPUSCULAR HEMOGLOBIN 28.8 pg (27.0-33.0); MEAN CORPUSCULAR HGB CONC 31.2 g/dl (32.0-36.5); MEAN CORPUSCULAR VOLUME 92.3 fl (80.0-96.0); MONO # 0.9 10^3/uL (0.0-0.8); MONO % 7.6 % (2.0-8.0); NEUTROPHILS # 7.9 10^3/uL (1.5-8.5); NEUTROPHILS % 67.9 % (36.0-66.0); PLATELET COUNT, AUTOMATED 518 10^3/uL (150-450); RED BLOOD COUNT 4.27 10^6/uL (4.00-5.40); WHITE BLOOD COUNT 11.7 10^3/uL (4.0-10.0)
[2023-04-24 19:43] LABS: THYROID STIMULATING HORMONE 0.008 uIU/ML (0.55-4.78); TOTAL 25(OH) VITAMIN D 36.9 NG/ML (20.0-100.0)
[2023-04-24 19:44] LABS: ALBUMIN 3.4 G/DL (3.2-5.2); ALKALINE PHOSPHATASE 114 U/L (46-116); ALT/SGPT 10 U/L (7.0-40); AST/SGOT < 8 U/L (<34); BILIRUBIN,TOTAL 0.2 MG/DL (0.3-1.2); BLOOD UREA NITROGEN 9 MG/DL (9-23); CALCIUM LEVEL 9.2 MG/DL (8.5-10.1); CARBON DIOXIDE LEVEL 24 MMOL/L (20-31); CHLORIDE LEVEL 108 MMOL/L (98-107); CHOLESTEROL LEVEL 202 MG/DL (<200); CHOLESTEROL RISK RATIO 4.17 (<5); CREATININE FOR GFR 0.66 MG/DL (0.55-1.30); GLOMERULAR FILTRATION RATE > 60.0 (>60); GLUCOSE, FASTING 103 MG/DL (60-100); HDL CHOLESTEROL 48.4 MG/DL (>40); LDL CHOLESTEROL 113.4 MG/DL (<100); NON-HDL-C 153.6 MG/DL; POTASSIUM SERUM 5.1 MMOL/L (3.5-5.1); SODIUM LEVEL 138 MMOL/L (136-145); TOTAL PROTEIN 6.3 G/DL (5.7-8.2); TRIGLYCERIDES LEVEL 201 MG/DL (<150)
[2023-04-24 23:51] LABS: HEMOGLOBIN A1c 4.9 % (4.0-6.0)
== END ==
LOC: M LAB REF 17:34
PROVIDERS: ATTEND Nurse Practitioner Family
DX: Z13.228 Encounter for screening for other metabolic disorders (principal)

== ENCOUNTER → 2023-05-24 | Outpatient (REF) | payer OTHER ==
[~2023-05-24] MED LIST changes: +ASPI-226 PO; +DIPH50CA29 PO; +LABE20TAB PO; +LURA20TA PO; +METO10TA2 PO
[2023-05-24 12:08] LABS: FREE T4 0.98 NG/DL (0.89-1.76); THYROID STIMULATING HORMONE 0.012 uIU/ML (0.55-4.78)
== END ==
LOC: M LAB REF 11:25
PROVIDERS: ATTEND Nurse Practitioner Family
DX: R79.89 Other specified abnormal findings of blood chemistry (principal)

== ENCOUNTER 2023-05-26 06:30 | Day surgery (SDC) | payer OTHER ==
[~2023-05-26] VITALS: Ht 165.1 cm; Wt 84.2 kg
[2023-05-26] MEDS ORDERED: LR 1,000 ML IV SCH ×2 (07:10→09:10)
[2023-05-26] MEDS ORDERED: ROCURONIUM BROMIDE 50MG/5ML VIAL As Ordered ONE (07:18)
[2023-05-26] MEDS ORDERED: LIDOCAINE 2% 100MG/5ML SDV (FOR ANES.) As Ordered ONE (07:18)
[2023-05-26] MEDS ORDERED: propofoL 200 MG/20 ML VIAL As Ordered ONE (07:18)
[2023-05-26] MEDS ORDERED: KETOROLAC 60MG 2ML VIAL As Ordered ONE (07:18)
[2023-05-26] MEDS ORDERED: SUGAMMADEX SODIUM 500 MG/5 ML VIAL (BRIDION) As Ordered ONE (07:18)
[2023-05-26] MEDS ORDERED: ONDANSETRON 4MG 2ML VIAL As Ordered ONE (07:18)
[2023-05-26 07:29] LABS: HEMATOCRIT 38.8 % (36.0-47.0); HEMOGLOBIN 12.4 g/dl (12.0-15.5); MEAN CORPUSCULAR VOLUME 90.7 fl (80.0-96.0); PLATELET COUNT, AUTOMATED 483 10^3/uL (150-450); RED BLOOD COUNT 4.28 10^6/uL (4.00-5.40); WHITE BLOOD COUNT 10.1 10^3/uL (4.0-10.0)
[2023-05-26] MEDS ORDERED: [UNRECOGNIZED DRUG - CODE] PO (07:29)
[2023-05-26] MEDS ORDERED: fentaNYL 100 MCG/2 ML INJECTION As Ordered ONE (08:08)
[2023-05-26] MEDS ORDERED: MIDAZOLAM INJ 2MG/2ML VIAL As Ordered ONE (08:09)
[2023-05-26] MEDS ORDERED: IBUP-1022 PO (08:15)
[2023-05-26] MEDS ORDERED: OXYC1TAB23 PO (08:16)
[2023-05-26] MEDS ORDERED: ACETAMINOPHEN 1000MG 100ML IV BAG As Ordered ONE (08:45)
[2023-05-26] MEDS ORDERED: ONDANSETRON 4MG 2ML VIAL IV PRN (09:10)
[2023-05-26] MEDS ORDERED: fentaNYL 100 MCG/2 ML INJECTION IV PRN (09:10)
[2023-05-26] MEDS ORDERED: oxyCODONE 5MG TAB PO PRN (09:45)
[2023-05-26] MEDS ORDERED: diphenhydrAMINE 50MG/ML VIAL IV PRN (09:45)
[2023-05-26 10:26] VITALS: BP 129/85; TEMP 98.1; O2SAT 95
== END 2023-05-26 10:36 | disposition home or self-care (01) ==
LOC: M SDC 06:30
PROVIDERS: ATTEND Specialist
DX: Z30.2 Encounter for sterilization (principal); I10 Essential (primary) hypertension; G35 Multiple sclerosis; E04.1 Nontoxic single thyroid nodule; Z79.899 Other long term (current) drug therapy; F17.210 Nicotine dependence, cigarettes, uncomplicated
CPT/HCPCS: 36415; 58661; 81025; 85027; 88302; J0131; J0665; J1100; J1200; J1885; J2250; J2405; J3010

== ENCOUNTER 2023-06-07 10:18 | Emergency (ER) | payer OTHER ==
[~2023-06-07] VITALS: Ht 165.1 cm; Wt 85.7 kg
[~2023-06-07 10:18] MED LIST changes: +IBUP-1022 PO; +OXYC1TAB23 PO; +[UNRECOGNIZED DRUG - CODE] PO
[2023-06-07 12:18] VITALS: BP 124/64; TEMP 98; O2SAT 98
[2023-06-07] MEDS ORDERED: LIDOCAINE 2% MDV 20ML VIAL SC ONE (12:55)
[2023-06-07] MEDS ORDERED: BACT800T5 PO (13:09)
[2023-06-07] MEDS ORDERED: FLUC150T9 PO (15:33)
== END 2023-06-07 13:25 | disposition home or self-care (01) ==
LOC: M ED 10:18
DX: L02.415 Cutaneous abscess of right lower limb (principal); I10 Essential (primary) hypertension; F32.A Depression, unspecified; F17.200 Nicotine dependence, unspecified, uncomplicated; F12.90 Cannabis use, unspecified, uncomplicated; Z79.899 Other long term (current) drug therapy; Z88.5 Allergy status to narcotic agent; Z91.040 Latex allergy status